=== PATIENT | female | born 1980 | race African-American/Black ===

== ENCOUNTER 2020-08-10 13:40 | Outpatient (CLI) | payer BC, SELFPAY | END 2020-08-10 13:41 | disposition home or self-care (01) | PROVIDERS: Visit Provider Obstetrics & Gynecology | DX: Z01.812 Encounter for preprocedural laboratory examination (principal); D21.9 Benign neoplasm of connective and other soft tissue, unspecified | CPT/HCPCS: 36415; 86850; 86900; 86901 ==

== ENCOUNTER → 2020-08-11 01:05 | Outpatient (CLI) | payer BC, SELFPAY ==
[2020-08-11 19:48] LABS: SARS-CoV-2 RNA PCR Negative
== END ==
PROVIDERS: Visit Provider Obstetrics & Gynecology
DX: Z01.812 Encounter for preprocedural laboratory examination (principal); Z20.822 Contact with and (suspected) exposure to COVID-19
CPT/HCPCS: C9803; U0003; U0005

== ENCOUNTER 2020-08-13 13:55 | Outpatient (CLI) | payer BC, SELFPAY | END 2020-08-13 13:56 | disposition home or self-care (01) | LOC: ANHCOVIDVC 13:55 | DX: Z23 Encounter for immunization (principal) | CPT/HCPCS: 0001A; 91300 ==

== ENCOUNTER 2020-08-14 00:39 | Day surgery (SDC) | payer BC, SELFPAY ==
[2020-08-07 14:25] VITALS: BMI 39.4
[2020-08-14] VITALS (10 sets, daily range): BP systolic 98–128; BP diastolic 62–87; PULSE 60–102; RESP 14–20; TEMP 36.3–37.3; O2SAT 95–100
--- NOTE | 2020-08-14 07:19 | WPDHPUPDATE1 ---
History and Physical Update Update Date/Time: 08/14/20 07:19 History and Physical has been reviewed, including an updated exam of the patient. There are NO changes in the patient's condition. Risks, benefits, and alternatives have been discussed and questions answered. Patient agrees to proceed with procedure.
[2020-08-14] MEDS: ACETAMINOPHEN 500 MG TABLET 1000 MG PO (07:20)
[2020-08-14] MEDS: LACTATED RINGERS 1,000 ML 30 ML IV CONT ×2 (07:35→10:15)
[2020-08-14] MEDS: KETOROLAC 15 MG/ML VIAL (*BKC) IV PUSH (07:42)
--- NOTE | 2020-08-14 08:05 | P.PNAN_ITS ---
Anes - Initial Pre Proc Eval Procedure: Operation Date: 08/14/20 08:30 Proposed Procedures p Total Laparoscopic Hysterectomy with Bilateral Salpingectomy - Antonio Olivia MD Date/Time: 08/14/20 08:05 Surgeon: Antonio Olivia MD Pre Op Diagnosis: leiomyoma of uterus Patient Data Age: 40 Gender: F Height: 5 ft 1 in Weight: 88.6 kg Last Vital Signs Temp 97.7 F 08/14/20 08:02 Pulse 75 08/14/20 08:02 Resp 20 08/14/20 08:02 BP 123/87 08/14/20 08:02 Pulse Ox 99 08/14/20 08:02 Allergies Allergy/AdvReac Type Severity Reaction Status Date / Time No Known Allergies Allergy Verified 08/14/20 08:00 Home Medications Medication Instructions Recorded Confirmed Type ascorbic acid (vitamin C) [Vitamin 300 mg PO DAILY 08/07/20 08/07/20 History C] cholecalciferol (vitamin D3) 10 mcg PO DAILY 08/07/20 08/07/20 History [Vitamin D3] elderberry fruit [Elderberry] 200 mg PO DAILY 08/07/20 08/07/20 History Patient hx anesthesia problems: none Family hx anesthesia problems: none [facility] Past Medical History Medical History (Updated 08/14/20 @ 08:05 by Michele Tate MD) Morbid obesity Social History Social History Smoking status: Light tobacco smoker Tobacco type: cigarettes Additional smoking assessment comments: 3 cigarettes a day x 2 years Alcohol use details: socially Living arrangements: with family Spiritual care concerns: No Anes - Eval Final PreProcedure Day of Procedure 08/14/20 08:05 Patient weight: morbidly obese Heart: regular rate and rhythm Lungs: clear to auscultation Airway: Mallampati scale class III Neurological: alert and oriented Last oral intake: >/= 8 hours ASA classification: III Emergent: no Anesthetic plan: proceed Anesthesia type and monitoring: general ETT and standard monitoring Informed Consent: The patient's anesthetic plan and its attendant risks and benefits were discussed with the patient/family/POA. Questions were solicited and answers provided to the satisfaction of the patient/family/POA.
[2020-08-14] MEDS: ceFAZolin 2 GM/D5W 50 ML 2 GM/50 ML BAG IVPB (08:26)
--- NOTE | 2020-08-14 10:36 | PM.PROC ---
Procedure Note - Detailed Date of procedure: 08/14/20 Pre-op diagnosis: leiomyoma of uterus Myoma, menorrhagia Post-op diagnosis: same Procedure performed: Total laparoscopic hysterectomy. Description of procedure: The patient was taken to the operating room. She was prepped and draped in the dorsal lithotomy position. A speculum was placed in the vagina. The cervix was grasped with a tenaculum. Stay sutures were placed at 3 and 9:00 a.m. of 0 Vicryl. The stay sutures were brought through the Blane up. The ASTER manipulator was placed in the vagina with a fixed Blane cup. The cup was then pushed up around the cervix. The sutures were tied to the handle of the ASTER manipulator. A 5 mm incision was made on the abdominal skin of the left upper quadrant using a scalpel. A 5 mm trocar was inserted into the intra-abdominal cavity under direct visualization the scope. Pneumoperitoneum was achieved. An 11 mm incision was made in the left lower quadrant of the abdomen with a scalpel. A 11 mm trocar was inserted into the intra-abdominal cavity under direct visualization the scope. A 5 mm periumbilical incision was made. A 5 mm scope was placed into the intra-abdominal cavity under direct visualization of the scope. The bilateral fallopian tubes were removed. The paratubal tissue in the area of the uterus was grasped with the LigaSure cautery and transected after being cauterized. The paratubal tissue from the ovary to the uterine cornu was cauterized and transected with LigaSure cautery. This was all done in a bilateral fashion. The tube was transected at the area of the uterine cornua and the tubes was removed through the 11 mm trocar site. The suspensory ligament of the ovary was cauterized and transected with ligature cautery in a bilateral fashion. The fallopian tubes were cauterized and transected in a bilateral fashion with LigaSure cautery. The round ligaments were cauterized and transected in bilateral fashion with LigaSure cautery. The round ligaments were cauterized and transected bilaterally with LigaSure cautery. The broad ligaments were cauterized and transected along the lateral aspects of the uterus down the level of the uterine arteries. A bladder flap was created using sharp and blunt dissection. The ureters were dissected out bilaterally down to the level of the uterine arteries. They could be visualized from the pelvic brim down the uterine arteries. Staying very close to the cervix the parametrium was cauterized transected in a stepwise fashion down to the level of the Blane cup. The Bladder flap was moved distally over the Blane cup using sharp and blunt dissection. The impression of the entire cup was visualized around the cervix. An incision was made with unipolar cautery down under the Blane cup creating a colpotomy incision all the way around the cervix. The uterus was taken out through the vagina. A pneumo occluder was placed in the vagina. The vagina was closed with 0 V lock suture in a running fashion. The ureters were identified again and found to be intact to the level of the uterine arteries. The pelvis was irrigated with a copious amount of antibiotic irrigation. The pneumoperitoneum was reduced. The trocars were removed. The skin was closed subcuticular 4 Monocryl covered with Dermabond. The pneumo occluder was removed from the vagina. The vagina was irrigated with Betadine. The patient tolerated the procedure well. She was taken to the recovery room in stable condition. Sponge lap and needle counts were correct x2. Anesthesia: GETA Surgeon: Antonio Olivia MD Estimated blood loss (mL): 200 Drains: No Packing: No Pathology: yes Complications: No immediate complications Condition: stable Disposition: PACU Findings: Grossly normal appearing tubes and ovaries. Uterus - 12 3 large uterine fibroids
[2020-08-14] MEDS: fentaNYL CITRATE INJ (*CRX) 100 MCG/2 ML VIAL 25 MCG IV PUSH ×4 (10:43→10:58)
--- NOTE | 2020-08-14 11:22 | PC.NURSE ---
This patient, Marvin Disla, was received from PACU per bed to room 279. Patient/family oriented to unit policies and routines
[2020-08-14] MEDS: DEXTROSE 5%/0.45% SOD CHL 1,000 ML 125 ML IV CONT ×2 (11:35→19:18)
[2020-08-14] MEDS: KETOROLAC 30 MG/ML VIAL (*BKC) IV PUSH (15:31)
[2020-08-14] MEDS: IBUPROFEN 600 MG TABLET PO (19:12)
[2020-08-14] MEDS: HYDROcodone/acetaminophen (*CRX) 5-325 MG TABLET 1 TAB PO (19:12)
[2020-08-15 03:41] VITALS: BP 111/65; PULSE 98; RESP 18; TEMP 36.7; O2SAT 100
--- NOTE | 2020-08-15 07:29 | WPDANLDPN2 ---
Anes-Prog Note L&D Date/Time: 08/15/20 07:29 Comfortable throughout: labor and delivery Neuraxial method: epidural Epidural/Spinal procedure site: clean & non-tender Neuro status: Neuro function grossly intact. Cardiovascular status: normal Respiratory status: normal Airway patency: baseline Mental status: baseline Post-Op hydration status: normal Vital Signs: Last Vital Signs Temp 36.7 C 08/15/20 03:41 Pulse 98 08/15/20 03:41 Resp 18 08/15/20 03:41 BP 111/65 08/15/20 03:41 Pulse Ox 100 08/15/20 03:41 Pain score (VAS): 06/17 I/O: Intake & Output 08/14/20 08/14/20 08/15/20 15:59 23:59 07:59 Intake Total 125 1100 500 Output Total 35 125 2000 Balance 90 975 -1500 Post-procedural complaints: none Patient feedback: Patient satisfied with anesthetic care.
--- NOTE | 2020-08-15 07:31 | WPDANESPN ---
Anes - Prog Note Post-Op Date/Time: 08/15/20 07:31 Cardiovascular status: normal Respiratory status: normal Airway patency: baseline Mental status: baseline Post-Op hydration status: normal Vital Signs: Last Vital Signs Temp 36.7 C 08/15/20 03:41 Pulse 98 08/15/20 03:41 Resp 18 08/15/20 03:41 BP 111/65 08/15/20 03:41 Pulse Ox 100 08/15/20 03:41 Pain Score (VAS): 06/17 I/O: Intake & Output 08/14/20 08/14/20 08/15/20 15:59 23:59 07:59 Intake Total 125 1100 500 Output Total 35 125 2000 Balance 90 975 -1500 Post-procedural complaints: none Patient Feedback: Patient satisfied with anesthetic care.
--- NOTE | 2020-08-15 07:46 | PM.GYNPNOP ---
HELP DESK REPRESENTATIVE - A/P Postoperative Procedures: Procedures Operation Date: 08/14/20 08:30 Actual Procedures Side Surgeon p Total Laparoscopic Hysterectomy with Bilateral Salpingectomy Bilateral ROsmany Olivia MD Postoperative day: 1 Postoperative status: doing well and other (Tollerating Regular Diet) Postoperative plan: routine post-op care and discharge Time Spent With Patient Time: Total time spent is greater than 50% in coordination of care (as documented) at patient's floor/unit and/or counseling patient: Time with patient: 15 - 25 minutes HELP DESK REPRESENTATIVE- PN:Subj Post-Op Subjective Date/time seen: 08/15/20 07:46 Subjective: patient reports feeling better, pain is well controlled and patient is tolerating oral intake Exam Const: General: cooperative, healthy appearing, comfortable and no acute distress Resp: Auscultation: no crackles, no rales, no rhonchi and no wheezes Cardio: Rhythm: regular rhythm Heart sounds: no click and no murmurs GI: Inspection: non-distended Auscultation: normal bowel sounds Other: Incisions - CDI Extrem: General: normal to inspection, no pedal edema and no calf tenderness HELP DESK REPRESENTATIVE - PN: Obj Data Vital Signs Vital Signs: Vital Signs - 24 hr 08/14/20 08:02 08/14/20 10:15 08/14/20 10:30 Temperature 97.7 F 99.2 F Pulse Rate 75 63 68 Respiratory Rate 20 20 16 Blood Pressure 123/87 104/66 98/69 L Pulse Oximetry 99 100 100 08/14/20 10:35 08/14/20 10:45 08/14/20 11:00 Temperature Pulse Rate 60 69 Respiratory Rate 16 14 Blood Pressure 101/71 101/67 Pulse Oximetry 98 100 100 08/14/20 11:15 08/14/20 11:30 08/14/20 16:10 Temperature 97.4 F L 99.0 F Pulse Rate 69 64 91 Respiratory Rate 14 18 18 Blood Pressure 101/62 104/64 128/69 Pulse Oximetry 100 95 08/14/20 19:24 08/15/20 03:41 Temperature 98.1 F 98.0 F Pulse Rate 102 H 98 Respiratory Rate 16 18 Blood Pressure 126/75 111/65 Pulse Oximetry 100 100 Intake/Output Intake/Output: Intake & Output 08/12/20 08/13/20 08/14/20 08/15/20 23:59 23:59 23:59 23:59 Intake Total 1225 500 Output Total 160 2000 Balance 1065 -1500 Meds/Results Medications: Active Medications Generic Name Dose Route Start Last Admin Trade Name Freq PRN Reason Stop Dose Admin Hydrocodone Bitart/Acetaminophen 1 tab 08/14/20 11:16 08/14/20 19:12 Hydrocodone/Acetaminophen (*Crx) 5-325 Mg Tablet PO 1 tab Q3H PRN Administration Pain Rated 5 or Less Hydrocodone Bitart/Acetaminophen 1 tab 08/14/20 11:16 Hydrocodone/Acetaminophen (*Crx) 10-325 Mg Tablet PO Q3H PRN Pain Rated 6 or Greater Dextrose/Sodium Chloride 1,000 mls @ 125 mls/hr 08/14/20 11:16 08/15/20 03:44 Dextrose 5% Sodium Chloride 0.45% IV CONT Not Given .Q8H DAI Ibuprofen 600 mg 08/14/20 11:16 08/14/20 19:12 Ibuprofen 600 Mg Tablet PO 600 mg Q6H PRN Administration Cramping Ketorolac Tromethamine 30 mg 08/14/20 11:16 08/14/20 15:31 Ketorolac 30 Mg/Ml Vial (*Bkc) IV PUSH 08/19/20 11:17 30 mg Q6H PRN Administration Pain Rated 4-6 Naloxone HCl 0.1 mg 08/14/20 11:16 Naloxone Hcl 0.4 Mg/Ml Vial IV PUSH Q2M PRN Respiratory rate less than 10 Ondansetron HCl 4 mg 08/14/20 11:16 Ondansetron Inj 4 Mg/2 Ml Vial IV PUSH Q6H PRN Nausea And Vomiting
[2020-08-15] MEDS: IBUPROFEN 600 MG TABLET PO (08:37)
[2020-08-15] MEDS: HYDROcodone/acetaminophen (*CRX) 5-325 MG TABLET 1 TAB PO (08:38)
[2020-08-15 08:50] VITALS: BP 121/68; PULSE 78; RESP 18; TEMP 36.9; O2SAT 98
== END 2020-08-15 12:05 | disposition home or self-care (01) ==
LOC: ANHSURGERY 06:43 → ANHOB2 12:11
PROVIDERS: Visit Provider Obstetrics & Gynecology
PROC: 0UT9FZZ Resection of Uterus, Via Natural or Artificial Opening With Percutaneous Endoscopic Assistance (ICD-10-PCS; CPT 58571; principal; 2020-08-14 08:30)
DX: D25.0 Submucous leiomyoma of uterus (principal); D25.1 Intramural leiomyoma of uterus; D25.2 Subserosal leiomyoma of uterus; N92.0 Excessive and frequent menstruation with regular cycle; N80.0 Endometriosis of uterus; N73.6 Female pelvic peritoneal adhesions (postinfective); N94.5 Secondary dysmenorrhea; F17.210 Nicotine dependence, cigarettes, uncomplicated; E66.01 Morbid (severe) obesity due to excess calories; Z68.36 Body mass index [BMI] 36.0-36.9, adult
CPT/HCPCS: 58571; 88307; 99199; A9270; J0330; J0690; J1100; J1170; J1885; J2250; J2405; J2704; J2710; J3010; J7030; J7120

== ENCOUNTER 2020-09-03 14:31 | Outpatient (CLI) | payer BC, SELFPAY | END 2020-09-03 14:32 | disposition home or self-care (01) | LOC: ANHCOVIDVC 14:31 | DX: Z23 Encounter for immunization (principal) | CPT/HCPCS: 0002A; 91300 ==

== ENCOUNTER 2020-11-06 19:24 | Emergency (ER) | payer BC, SELFPAY ==
--- NOTE | ~2020-11-06 | XR_ITS ---
XR knee RT 3V DATE: 11/06/2020 22:48 INDICATION: Nontraumatic pain TECHNIQUE: 4 views COMPARISON: None FINDINGS: No fracture or dislocation or joint effusion, periosteal reaction or bone destruction, radi opaque intra-articular loose body or chondrocalcinosis is evident. Joint spaces are well preserved. IMPRESSION: Negative Reviewed, dictated and finalized at location A. IMPRESSION: Negative
[2020-11-06 19:56] VITALS: BP 131/70; PULSE 71; RESP 18; TEMP 36.4; O2SAT 100
--- NOTE | 2020-11-06 22:31 | ED.EXTPRO ---
HPI - Extremity Problem General Chief complaint: Extremity Problem,Nontraumatic Stated complaint: right leg swelling Time Seen by Provider: 11/06/20 22:08 Source: patient Mode of arrival: ambulatory Limitations: no limitations History of Present Illness HPI Narrative: Patient is 40 years old -[place] female presents with pain and bruises at the anterior lateral side of the right lower leg, noticed last night. Patient denies any trauma, shortness of breath, fever, chills, nausea, vomiting, chest pain. Patient reports having some right knee pain. 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 Patient smokes, does not drink or uses drugs. History of hysterectomy otherwise healthy. Related Data Home Medications Medication Instructions Recorded Confirmed ascorbic acid (vitamin C) 300 mg PO DAILY 08/07/20 08/07/20 cholecalciferol (vitamin D3) 10 mcg PO DAILY 08/07/20 08/07/20 [Vitamin D3] elderberry fruit 200 mg PO DAILY 08/07/20 08/07/20 Allergies Allergy/AdvReac Type Severity Reaction Status Date / Time No Known Allergies Allergy Verified 11/01/20 07:53 Review of Systems Review of Systems: Narrative: CONSTITUTIONAL: Denies fever, chills, or sweats. EYES: Denies visual changes, redness, or discharge. ENT: Denies rhinorrhea, congestion, sore throat, or otalgia. CARDIOVASCULAR: Denies chest pain, palpitations, or edema. RESPIRATORY: Denies cough or dyspnea. GASTROINTESTINAL: Denies abdominal pain, nausea, vomiting, or diarrhea. GENITOURINARY: Denies dysuria or hematuria. SKIN: Denies rash or itching. MUSCULOSKELETAL: Denies back pain, joint pain, or myalgia. NEUROLOGIC: Denies headache, numbness, or weakness. PSYCHIATRIC: Denies anxiety or depression. PMFSH Past Medical History Medical History Morbid obesity Social History Social History Smoking status: Light tobacco smoker Tobacco type: cigarettes Additional smoking assessment comments: 3 cigarettes a day x 2 years Spiritual care concerns: No Exam Narrative: Exam Narrative: General appearance: Well-developed, well-nourished Skin: Normal color Head: Normocephalic, nontraumatic Eyes: Clear conjunctiva ENT: Oropharynx normal, ears normal, nose normal Neck: Supple, nontender Chest and respiratory: Airway patent, no respiratory distress, no accessory muscle use Heart: Regular rate/rhythm Abdomen: Soft, nontender, no organomegaly, quiet bowel sounds Vascular: Normal peripheral pulses, normal capillary refill. Musculoskeletal: Right lower leg showed diffuse bruises anterolaterally, 10 x 15 cm, tender to touch, no warmth, no discharge, no open the skin, there might be surrounded by tiny varicose veins. Right knee exam showed no swelling, no bruises, no warmth, no deformity. Right calf muscle is soft and nontender. Neurologic: Alert and oriented ?3, NURSING DEPARTMENT CHAIRPERSON is normal as tested, no gross motor deficit Course Course Emergency Course: Stable Vital Signs Vital signs: Vital Signs Temperature 36.4 C L 11/06/20 19:56 Pulse Rate 71 11/06/20 19:56 Respiratory Rate 18 11/06/20 19:56 Blood Pressure 131/70 11/06/20 19:56 Pulse Oximetry 100 11/06/20 19:56 Temperature 36.4 C L 11/06/20 19:56 Pulse Rate 71 11/06/20 19:56 Respiratory Rate 18 11/06/20 19:56 Blood Pressure 131/70 11/06/20 19:56 Pulse Oximetry 100 11/06/20 19:56 MDM - Extremity (Nontraumatic) MDM Narrative Medical decision making narrative: And noticed trauma versus rupture varicose vein is my concern. Right knee x-ray, CBC, PT PTT to rule out any possibilit
[2020-11-06 23:01] LABS: Basophils Percent Auto 0.4 % (0.2-1.2); Eosinophils Absolute Auto 0.1 K/mm3 (0-0.3); Eosinophils Percent Auto 1.5 % (0-4.4); Hematocrit 41.4 % (37.0-47.0); Hemoglobin 13.6 g/dL (12.0-15.0); Immature Granulocyte Absolute 0.01 K/mm3 (0.00-0.031); Immature Granulocyte Percent A 0.2 % (0-0.5); Lymphocytes Absolute Auto 2.58 K/mm3 (0.9-3.2); Lymphocytes Percent Auto 47.8 % (18.3-44.2); Mean Corpuscular HGB Conc 32.9 g/dl (32-36); Mean Corpuscular Hemoglobin 30.2 pg (26-34); Mean Corpuscular Volume 91.8 fl (80-100); Mean Platelet Volume 10.9 fl (7.4-10.4); Monocytes Absolute Auto 0.3 K/mm3 (0.1-0.6); Monocytes Percent Auto 5.7 % (2.6-8.5); Neutrophils Absolute Auto 2.4 K/mm3 (1.3-6.7); Neutrophils Percent Auto 44.4 % (45.5-73.1); Platelet Count Result 192 k/mm3 (150-375); Red Blood Count 4.51 M/mm3 (4.2-5.4); Red Cell Distribution Width 13.2 % (11.5-14.5); White Blood Count 5.4 K/mm3 (4.5-10.0)
[2020-11-06 23:13] LABS: INR 0.9; Prothrombin Time 13.1 Seconds (11.1-14.7)
[2020-11-06 23:14] LABS: Partial Thromboplastin Time 30.9 SECONDS (22.3-36.8)
[2020-11-06 23:29] VITALS: BP 126/71; PULSE 68; RESP 18; O2SAT 99
[2020-11-07 00:11] LABS: Erythrocyte Sedimentation Rate 13 mm/hr (0-20)
== END 2020-11-06 23:27 | disposition home or self-care (01) ==
PROVIDERS: Emergency Provider Emergency Medicine; PCP Family Medicine
DX: R58 Hemorrhage, not elsewhere classified (principal); F17.210 Nicotine dependence, cigarettes, uncomplicated
CPT/HCPCS: 36415; 73562; 85025; 85610; 85652; 85730; 99283

== ENCOUNTER 2021-07-31 12:09 | Outpatient (CLI) | payer BC, SELFPAY ==
--- NOTE | 2021-07-31 12:30 | ECG_ITS ---
Measurements Intervals [place] Rate: 68 P: 51 MO: 171 QRS: 18 QRSD: 87 T: 56 QT: 412 QTc: 440 Interpretive Statements SINUS RHYTHM INCOMPLETE RIGHT BUNDLE BRANCH BLOCK BORDERLINE ECG Electronically Signed On 07-31-2021 14:00:14 [employer] GENER[employer]NAGER by Roshan West D.O.
== END 2021-07-31 12:10 | disposition home or self-care (01) ==
LOC: ANHCARD 12:21
DX: E66.9 Obesity, unspecified (principal); I45.10 Unspecified right bundle-branch block
CPT/HCPCS: 93005

== ENCOUNTER 2022-01-06 02:03 | Emergency (ER) | payer BC, SELFPAY ==
[2022-01-06 02:08] VITALS: BP 140/94; PULSE 100; RESP 20; TEMP 36.6; O2SAT 100
--- NOTE | 2022-01-06 02:20 | ED.EXTPRO ---
HPI - Extremity Problem General Chief complaint: Extremity Problem,Nontraumatic Stated complaint: Left calf pain Time Seen by Provider: 01/06/22 02:16 History of Present Illness HPI Narrative: Patient is a 41-year-old female complaining of left calf pain, 8 out of 10, aching, nonradiating started 2 days ago. Patient denies any chest pain, shortness of breath, fever or chills. Patient denies any injury to the area. Patient denies any recent travel or prolonged immobilization. Denies any history of blood clots. Related Data Home Medications Medication Instructions Recorded Confirmed ascorbic acid (vitamin C) 300 mg 300 mg PO DAILY 08/07/20 08/07/20 chewable tablet cholecalciferol (vitamin D3) 10 10 mcg PO DAILY 08/07/20 08/07/20 mcg (400 unit) chewable tablet (Vitamin D3) elderberry fruit 200 mg capsule 200 mg PO DAILY 08/07/20 08/07/20 phentermine 30 mg capsule mg 01/06/22 topiramate 100 mg tablet mg 01/06/22 Allergies Allergy/AdvReac Type Severity Reaction Status Date / Time No Known Allergies Allergy Verified 01/06/22 02:11 Review of Systems Review of Systems: Per HPI All systems reviewed & are unremarkable except as noted in HPI and below PMFSH Past Medical History Medical History Morbid obesity Social History Social History Smoking status: Light tobacco smoker Tobacco type: cigarettes Additional smoking assessment comments: 3 cigarettes a day x 2 years Alcohol use details: socially Spiritual care concerns: No Exam Const: General: cooperative, healthy appearing, comfortable, no acute distress, well developed, alert and awake; No confusion Orientation/consciousness: oriented to person, oriented to place, oriented to time, patient oriented x3 and No confusion Limitations: no limitations HENMT: Head: normal to inspection, normocephalic and atraumatic Ears: hearing grossly normal bilaterally, TM normal on the right and TM normal on the left General nose exam: Normal external nose present, Normal nares present and No nasal discharge present Face and sinus: normal facial exam Mouth: Yes Normal oral and palatal mucosa present, Yes lip normal, Yes tongue normal and Yes oropharynx normal Throat: posterior oropharynx normal, tonsils normal and uvula midline Eyes: General: appearance normal, both eyes and all related structures Pupils: Equal, round and reactive pupils present EOM: EOMs intact bilaterally Neck: Neck: normal visual inspection, full ROM, no lymphadenopathy and no meningeal signs Chest: Chest palpation & inspection: normal inspection of the chest Resp: Effort & Inspection: normal respiratory effort, able to speak in complete sentences, no respiratory distress and not tachypneic Auscultation: clear to auscultation bilaterally, no crackles, no rales, no rhonchi and no wheezes Cardio: Rate: regular rate Rhythm: regular rhythm GI: Inspection: normal to inspection GI Palp: No abdominal tenderness, Yes Soft to palpation, No Tenderness to palpation present (GI), No Guarding due to palpation present (GI), No Rigid due to palpation and No Rebound tenderness present Auscultation: normal bowel sounds : General: Yes no CVA tenderness Back/Spine/Pelvis: Back: no CVA tenderness Skin: General skin exam: normal color, no rashes or lesions noted, elasticity normal and turgor normal Neuro: General: oriented to person, oriented to place, oriented to time, patient oriented x3, tone normal, moves all extremities, Normal light touch and pain sensation, no meningeal signs, no focal motor deficits, CN's II-XI intact bilaterally and No confusion Cranial nerves: Yes Equal, round and reactive pupils present Speech: No Abnormal speech present Sensory Exam: No Sensory deficit (Neuro) Extrem: General: normal to inspection, full ROM and capillary refill normal Other: Calf pain on pal
[2022-01-06] MEDS: CYCLOBENZAPRINE HCL 10 MG TABLET PO (03:01)
[2022-01-06] MEDS: KETOROLAC 30 MG/ML VIAL (*BKC) IM (03:01)
[2022-01-06 03:44] VITALS: BP 134/90; PULSE 97; RESP 15; O2SAT 100
== END 2022-01-06 03:46 | disposition home or self-care (01) ==
PROVIDERS: Emergency Provider Emergency Medicine
DX: M79.662 Pain in left lower leg (principal); E66.01 Morbid (severe) obesity due to excess calories; Z68.36 Body mass index [BMI] 36.0-36.9, adult; F17.210 Nicotine dependence, cigarettes, uncomplicated
CPT/HCPCS: 96372; 99283; A9270; J1885

== ENCOUNTER 2022-01-06 14:14 | Outpatient (CLI) | payer BC, SELFPAY ==
--- NOTE | ~2022-01-06 | US_ITS ---
EXAMINATION: US venous doppler [facility] DATE: 01/06/2022 15:17 INDICATION: L LEG PAIN . TECHNIQUE: Grayscale images without and with compression and Doppler images of the left lower extremi ty veins were obtained. COMPARISON: None FINDINGS: The left common femoral vein, profunda femoral vein, femoral vein, popliteal vein, peroneal vein, pos terior branches of the posterior tibial veins, gastrocnemius vein, lesser saphenous, and greater saph enous vein are patent. Anterior branch of the posterior tibial vein is dilated, contains intraluminal echogenicity, and is noncompressible IMPRESSION: 1. Acute deep venous thrombosis involving the anterior branch of left the posterior tibial vein. Results reported telephonically to Dr. He by Dr. Cedillo at 3:35 pm on 01/06/22. Reviewed, dictated and finalized at location K. IMPRESSION: 1. Acute deep venous thrombosis involving the anterior branch of left the post erior tibial vein. Results reported telephonically to Dr. He by Dr. Cedillo at 3:35 pm on 01/06/22 .
== END 2022-01-06 14:15 | disposition home or self-care (01) ==
PROVIDERS: PCP Emergency Medicine; Visit Provider Emergency Medicine
DX: M79.605 Pain in left leg (principal); I82.442 Acute embolism and thrombosis of left tibial vein
CPT/HCPCS: 93971

== ENCOUNTER 2022-01-06 15:55 | Emergency (ER) | payer BC, SELFPAY ==
[2022-01-06 16:22] VITALS: BP 141/103; PULSE 112; RESP 16; TEMP 36.3; O2SAT 97
[2022-01-07 00:34] VITALS: BP 148/105; PULSE 85; RESP 18; O2SAT 100
[2022-01-07 00:47] LABS: Basophils Percent Auto 0.4 % (0.2-1.2); Eosinophils Absolute Auto 0.1 K/mm3 (0-0.3); Eosinophils Percent Auto 1.6 % (0-4.4); Hematocrit 41.6 % (37.0-47.0); Hemoglobin 13.8 g/dL (12.0-15.0); Immature Granulocyte Absolute 0.01 K/mm3 (0.00-0.031); Immature Granulocyte Percent A 0.2 % (0-0.5); Lymphocytes Absolute Auto 2.59 K/mm3 (0.9-3.2); Lymphocytes Percent Auto 50.7 % (18.3-44.2); Mean Corpuscular HGB Conc 33.2 g/dl (32-36); Mean Corpuscular Hemoglobin 30.7 pg (26-34); Mean Corpuscular Volume 92.4 fl (80-100); Mean Platelet Volume 11.1 fl (7.4-10.4); Monocytes Absolute Auto 0.4 K/mm3 (0.1-0.6); Monocytes Percent Auto 6.8 % (2.6-8.5); Neutrophils Absolute Auto 2.1 K/mm3 (1.3-6.7); Neutrophils Percent Auto 40.3 % (45.5-73.1); Platelet Count Result 179 k/mm3 (150-375); Red Cell Distribution Width 13.6 % (11.5-14.5); White Blood Count 5.1 K/mm3 (4.5-10.0)
[2022-01-07 00:53] LABS: Alanine Aminotransferase 11 U/L (6-35); Albumin Level 4.2 g/dL (3.5-5.1); Alkaline Phosphatase 80 U/L (38-126); Anion Gap 8 mmol/L (8-16); Aspartate Amino Transferase 20 U/L (14-36); Bilirubin,Total 0.4 mg/dL (0.2-1.3); Blood Urea Nitrogen 14 mg/dL (7-17); Calcium 8.8 mg/dL (8.4-10.2); Carbon Dioxide 29 mmol/L (22-30); Chloride 104 mmol/L (98-107); Estimated CRCL calculation 72 ml/min; Estimated Glomerular Filt Rate > 60; Glucose 94 mg/dL (65-110); Potassium 3.2 mmol/L (3.4-5.0); Sodium 141 mmol/L (137-145)
--- NOTE | 2022-01-07 01:09 | ED.GENADULT ---
HPI - General Adult General Chief complaint: Recheck/Abnormal Lab/Rx <DANA Capps Last Filed: 01/07/22 13:51> Stated complaint: DVT left leg <DANA Capps Last Filed: 01/07/22 13:51> Time Seen by Provider: 01/07/22 00:28 <DANA Capps Last Filed: 01/07/22 13:51> History of Present Illness HPI narrative: Patient is a 41-year-old female here for evaluation of left lower extremity swelling and pain for the past 3 days. Patient was seen in the ED last evening for the same, had an ultrasound in the morning that was positive for DVT on the left. She called her primary care doctor, who recommended her to come to the emergency department. She has never had a blood clot in the past. She has been taking a muscle relaxant and also icing the area with moderate relief of her pain. Denies any chest pain, shortness of breath, syncope. <Romina Rodarte PA-C - Last Filed: 01/07/22 13:51> Related Data Home medications: Home Medications Medication Instructions Recorded Confirmed ascorbic acid (vitamin C) 300 mg 300 mg PO DAILY 08/07/20 08/07/20 chewable tablet cholecalciferol (vitamin D3) 10 10 mcg PO DAILY 08/07/20 08/07/20 mcg (400 unit) chewable tablet (Vitamin D3) elderberry fruit 200 mg capsule 200 mg PO DAILY 08/07/20 08/07/20 phentermine 30 mg capsule mg 01/06/22 topiramate 100 mg tablet mg 01/06/22 <Romina Rodarte PA-C - Last Filed: 01/07/22 13:51> Allergies/adverse reactions: Allergies Allergy/AdvReac Type Severity Reaction Status Date / Time No Known Allergies Allergy Verified 01/07/22 00:37 <DANA Capps Last Filed: 01/07/22 13:51> Review of Systems Review of Systems: Gen.: Denies fevers or chills Eyes: Denies eye pain or visual change ENT: Denies congestion Respiratory: Denies shortness of breath or cough CV: Denies chest pain or palpitations GI: Denies abdominal pain nausea, emesis or diarrhea denies burning, urgency, frequency or hematuria Musculoskeletal: Reports left leg pain. Denies back pain or muscle pain Neuro: Denies numbness, tingling, weakness or focal weakness Skin: Denies rash Except as documented, all other systems reviewed and negative <Romina Rodarte PA-C - Last Filed: 01/07/22 13:51> [facility] Past Medical History Medical History: Medical History Morbid obesity <Romina Rodarte PA-C - Last Filed: 01/07/22 13:51> Social History Social History: Social History Smoking status: Light tobacco smoker Tobacco type: cigarettes Additional smoking assessment comments: 3 cigarettes a day x 2 years Alcohol use details: socially Spiritual care concerns: No <Romina Rodarte PA-C - Last Filed: 01/07/22 13:51> Exam Narrative: APPEARANCE: Well appearing, no pain in distress, well-nourished. Head: Normocephalic and atraumatic. EYES: PERRLA/EOMI, conjunctivae clear NOSE: No nasal drainage EARS: External ear normal in appearance THROAT: Oropharynx is clear. Mucous membranes are moist. NECK: Supple. No adenopathy, no masses. RESPIRATORY: Airway patent, respirations nonlabored. Clear to auscultation bilaterally, no rales, rhonchi, wheezing. CARDIOVASCULAR: Regular rate and rhythm without murmurs, rubs, or gallops. ABDOMINAL: Normoactive bowel sounds. Soft, nontender, nondistended. No rebound tenderness or guarding. MUSCULOSKELETAL: Tender to palpation over left calf. Nonpitting edema over the left calf. Extremities are warm and well-perfused. Moves all extremities well. NEURO: Normal speech. No focal neurologic deficits. SKIN: Skin is warm and dry. No rashes. PSYCHIATRIC: Normal affect/mood. <Romina Rodarte PA-C - Last Filed: 01/07/22 13:51> Course BEHAVIORAL HEALTH AIDE/PA Physician Supervision I discussed this patient w
[2022-01-07] MEDS: ACETAMINOPHEN 325 MG TABLET 650 MG PO (01:17)
[2022-01-07] MEDS: ENOXAPARIN 100 MG/ML SYRINGE SUB-Q (01:18)
[2022-01-07] MEDS: ENOXAPARIN 40 MG/0.4 ML SYRINGE SUB-Q (01:18)
[2022-01-07 02:00] VITALS: BP 151/106; PULSE 76; RESP 19; O2SAT 99
== END 2022-01-07 02:01 | disposition home or self-care (01) ==
PROVIDERS: Emergency Medicine; Physician Assistant; Emergency Provider Preventive Medicine Aerospace Medicine; PCP Emergency Medicine
DX: I82.442 Acute embolism and thrombosis of left tibial vein (principal); E66.01 Morbid (severe) obesity due to excess calories; Z68.36 Body mass index [BMI] 36.0-36.9, adult
CPT/HCPCS: 36415; 80053; 85025; 85730; 96372; 99284; A9270; J1650

== ENCOUNTER 2022-01-10 15:57 | Outpatient (CLI) | payer BC, SELFPAY ==
[2022-01-10 16:58] LABS: Anion Gap 6 mmol/L (8-16); Blood Urea Nitrogen 11 mg/dL (7-17); Carbon Dioxide 27 mmol/L (22-30); Chloride 105 mmol/L (98-107); Estimated Glomerular Filt Rate > 60; Glucose 93 mg/dL (65-110); Potassium 3.7 mmol/L (3.4-5.0); Sodium 138 mmol/L (137-145)
[2022-01-10 17:03] LABS: Hemoglobin A1C 5.1 % (<5.7)
[2022-01-10 17:24] LABS: Free T4 Free Thyroxine 0.89 ng/mL (0.78-2.19)
[2022-01-10 17:29] LABS: Creatinine Urine 284.5 mg/dL
[2022-01-10 17:35] LABS: MALB Creatinine Ratio 7.2 mg/g (0-30); Microalbumin Urine Random 20.6 mg/L (0-16.7)
== END 2022-01-10 15:58 | disposition home or self-care (01) ==
PROVIDERS: PCP Emergency Medicine; Visit Provider Emergency Medicine
DX: I82.409 Acute embolism and thrombosis of unspecified deep veins of unspecified lower extremity (principal)
CPT/HCPCS: 36415; 80048; 82043; 83036; 84439; 84443; 87086

== ENCOUNTER 2022-03-11 15:23 | Outpatient (CLI) | payer BC, SELFPAY ==
--- NOTE | ~2022-03-11 | US_ITS ---
EXAMINATION:US venous doppler LE LT INDICATION:Left DVT TECHNIQUE: Multiple grayscale, color flow and Doppler images of the left lower extremity deep venous systems were obtained and reviewed. COMPARISON:Ultrasound dated 01/06/2022 FINDINGS: The common femoral, superficial femoral and popliteal veins demonstrate normal respiratory variation, augmentation and compressibility. Color flow is also seen within the posterior tibial, pe roneal, greater saphenous and profunda veins. IMPRESSION: 1: No lower extremity deep venous thrombosis. Reviewed, dictated and finalized at location A.
== END 2022-03-11 15:24 | disposition home or self-care (01) ==
PROVIDERS: PCP Emergency Medicine; Visit Provider Internal Medicine Hematology & Oncology
DX: I82.4Y2 Acute embolism and thrombosis of unspecified deep veins of left proximal lower extremity (principal)
CPT/HCPCS: 93971

== ENCOUNTER 2022-03-18 16:40 | Outpatient (CLI) | payer BC, SELFPAY ==
--- NOTE | ~2022-03-18 | MM_ITS ---
EXAMINATION: MM screening jc BI w delfin HISTORY: Screening TECHNIQUE: Craniocaudal and mediolateral oblique 3-D tomosynthesis images were obtained and synthetic 2-D images were generated. CAD analysis was submitted and interpreted. COMPARISON: No prior mammogram is available for comparison at this institution. BREAST PARENCHYMAL COMPOSITION: The breasts are heterogeneously dense, which may obscure small masses FINDINGS: There are no suspicious masses, calcifications or architectural distortion in the left boogie st to suggest malignancy. There is a 1.6 cm mass in the upper outer quadrant of the right breast with possible additional mass obscured by fibroglandular tissue. IMPRESSION: 1. Right breast mass in the upper outer quadrant posteriorly measuring 1.6 cm. 2. Additional mammographic views and possible breast ultrasound are recommended. BI-RADS Category 0: Incomplete: Needs additional imaging evaluation. Reviewed, dictated and finalized at location A. IMPRESSION: 1. Right breast mass in the upper outer quadrant posteriorly measuring 1.6 cm. 2. Additional mammographic views and possible breast ultrasound are recommended . BI-RADS Category 0: Incomplete: Needs additional imaging evaluation.
== END 2022-03-18 16:41 | disposition home or self-care (01) ==
LOC: ANHIMG 16:43
PROVIDERS: PCP Emergency Medicine; Visit Provider Emergency Medicine
DX: Z12.31 Encounter for screening mammogram for malignant neoplasm of breast (principal); R92.8 Other abnormal and inconclusive findings on diagnostic imaging of breast
CPT/HCPCS: 77063; 77067

== ENCOUNTER 2022-03-27 13:16 | Outpatient (CLI) | payer BC, SELFPAY ==
--- NOTE | ~2022-03-27 | MMUS_ITS ---
EXAMINATION: MM diagnostic jc RT w delfin, US breast RT limited HISTORY: Follow-up right breast asymmetry TECHNIQUE: Additional 3-D tomosynthesis images of the right breast were performed and synthetic 2-D i mages were generated. CAD analysis was submitted and interpreted. High resolution Limited right breas t ultrasound was performed. COMPARISON: 03/18/2022 BREAST PARENCHYMAL COMPOSITION: The breasts are heterogeneously dense, which may obscure small masses FINDINGS: MAMMOGRAPHIC FINDINGS: There are persistent asymmetries in the upper outer quadrant of the right breast. There is a low-dens ity mass in the upper outer quadrant of the right breast, middle third, measuring up to 1.3 cm. There is no evidence for architectural distortion. ULTRASOUND: Limited right breast ultrasound: At 11:00, 7 cm from the nipple, there is an 8 mm cyst. At 11:00, 9 c m from the nipple, there is a 6 mm cyst. At 9:00, 8 cm from the nipple, there is an oval hypoechoic m ass with some irregular margins. There is parallel orientation, posterior acoustic enhancement and no internal vascularity. This mass measures 1.2 x 1 x 0.9 cm. IMPRESSION: 1. Slightly irregular shaped hypoechoic right breast mass located at 9:00, 8 cm from the nipple measu ring 12 mm greatest dimension. 2. Recommend fine-needle aspiration of this mass. If aspiration is not possible, conversion to ultras ound-guided biopsy recommended. BI-RADS category 4, suspicious findings. Reviewed, dictated and finalized at location A. IMPRESSION: 1. Slightly irregular shaped hypoechoic right breast mass located at 9:00, 8 cm from the nipple measuring 12 mm greatest dimension. 2. Recommend fine-needle aspiration of this mass. If aspiration is not possible , conversion to ultrasound-guided biopsy recommended. BI-RADS category 4, suspicious findings.
== END 2022-03-27 13:17 | disposition home or self-care (01) ==
LOC: ANHIMG 13:18
PROVIDERS: PCP Emergency Medicine; Visit Provider Emergency Medicine
DX: R92.8 Other abnormal and inconclusive findings on diagnostic imaging of breast (principal)
CPT/HCPCS: 76642; 77061; 77065; G0279

== ENCOUNTER 2022-04-03 10:09 | Outpatient (CLI) | payer BC, SELFPAY ==
--- NOTE | ~2022-04-03 | MMUS_ITS ---
EXAMINATION: US breast biopsy RT w image, MM post biopsy invasive RT DATE: 04/03/2022 11:40 (accession [id number]), 04/03/2022 11:45 (accession [id number]) INDICATION: Indeterminate mass at the 9:00 location of the right breast Ultrasound-guided core biopsy is requested to evaluate for malignancy. TECHNIQUE AND FINDINGS: The risks and potential benefits of the procedure were discussed with the patient including bleeding and infection. A time out was performed. The skin of the right breast was prepared and draped in usua l sterile fashion. 1% lidocaine was used for superficial anesthesia. 1% lidocaine with epinephrine wa s used for deep anesthesia. A vacuum-assisted biopsy needle was advanced through to the outer edge of the region of interest from a superolateral approach utilizing sonographic guidance. A total of three tissue core samples were o btained through the lesion. A tissue marker clip was then placed at the biopsy site. Hemostasis was a chieved. A sterile bandage was applied. The patient tolerated procedure well and there was no evidence of immediate complication. The patient was given verbal instructions to return to the Emergency Department in the event of severe breast pa in or rapid breast enlargement. A two view right breast mammogram was obtained to document tissue mar ker clip placement. IMPRESSION: 1. Successful ultrasound-guided vacuum-assisted biopsy of right breast mass with tissue marker placem ent. Reviewed, dictated and finalized at location A. IMPRESSION: 1. Successful ultrasound-guided vacuum-assisted biopsy of right breast mass wit h tissue marker placement.
== END 2022-04-03 10:10 | disposition home or self-care (01) ==
PROVIDERS: PCP Emergency Medicine; Visit Provider Emergency Medicine
DX: N64.59 Other signs and symptoms in breast (principal); D05.11 Intraductal carcinoma in situ of right breast
CPT/HCPCS: 19083; 88305; 88360; A4648

== ENCOUNTER 2022-06-03 14:00 | Outpatient (CLI) | payer BC, SELFPAY ==
--- NOTE | 2022-06-03 | ECHO_ITS ---
Patient Info Name: Marvin Disla Age: 42 years : 1980 Gender: Female Ht: 61 in Wt: 196 lbs BSA: 2.00 m2 HR: 88 bpm BP: 144 / 99 mmHg Heart Rhythm: Sinus Rhythm Exam Date: 06/03/2022 2:09 PM Exam Location: [facility] Patient Status: Outpatient Admit Date: 06/03/2022 Staff Ordering Physician: Durga Roberson MD Sample Coordinator: Jessica Payan RDCS Attending Provider: Durga Roberson MD Referring Physician: Karol BAHENA; Exam Type: CA echo doppler color flow Study Info Indications - MALIGNANT NEOPLASM OF UPPER OUTER QUADRANT L BREAST Complete two-dimensional, color flow and Doppler transthoracic echocardiogram is performed. Summary 1. Complete two-dimensional, color flow and Doppler transthoracic echocardiogram is performed. 2. Left ventricular chamber dimension is normal. 3. Left ventricular systolic function is normal, estimated at 65-70%. 4. There is mildly increased left ventricular wall thickness. 5. The left ventricular diastolic function is abnormal. 6. Left atrial chamber dimension is mildly enlarged. 7. There is trace tricuspid valve regurgitation. 8. No pulmonary hypertension, estimated pulmonary arterial systolic pressure is 26 mmHg. Left Ventricle Left ventricular chamber dimension is normal. Left ventricular systolic function is normal, estimated at 65-70%. There is mildly increased left ventricular wall thickness. The left ventricular diastolic function is abnormal. Right Ventricle Right ventricular chamber dimension is normal. Right ventricular systolic function is normal. Left Atria Left atrial chamber dimension is mildly enlarged. Right Atria Right atrial chamber dimension is normal. Aortic Valve The aortic valve is probable trileaflet. There is no aortic valve stenosis. There is no aortic valve regurgitation. Pulmonic Valve The pulmonic valve is not well visualized. There is trace pulmonic regurgitation. Mitral Valve The mitral valve has normal leaflets. There is trace mitral valve regurgitation. Tricuspid Valve The tricuspid valve leaflets are normal. There is trace tricuspid valve regurgitation. No pulmonary hypertension, estimated pulmonary arterial systolic pressure is 26 mmHg. Pericardium/Pleural The pericardium appears normal. There is no pericardial effusion. Inferior Vena Cava Normal inferior vena cava with <50% collapse upon inspiration consistent with elevated right atrial pressure, 10 mmHg. Aorta The aortic root size at the sinus of Valsalva is normal. Left Ventricular Outflow Tract Name Value Normal LVOT 2D LVOT Diameter 2.0 cm LVOT Doppler LVOT Peak Gradient 3 mmHg LVOT Mean Gradient 2 mmHg LVOT VTI 22 cm LVOT VTI/AV VTI Ratio 0.9 LVOT Stroke Volume 67 ml LVOT CO 3.9 l/min LVOT CI 1.9 l/min/m2 Pulmonic Valve Name
== END 2022-06-03 14:01 | disposition home or self-care (01) ==
LOC: ANHCARD 14:01
PROVIDERS: Visit Provider Internal Medicine Hematology & Oncology
DX: C50.412 Malignant neoplasm of upper-outer quadrant of left female breast (principal); I51.7 Cardiomegaly
CPT/HCPCS: 93306

== ENCOUNTER 2022-07-10 12:33 | Outpatient (CLI) | payer BC, SELFPAY ==
--- NOTE | ~2022-07-10 | US_ITS ---
EXAMINATION: US venous doppler [facility] DATE: 07/10/2022 14:04 INDICATION: Left lower limb pain. TECHNIQUE: Grayscale ultrasound images without and with compression and Doppler ultrasound images of the left lower extremity veins were obtained. COMPARISON: Ultrasound 03/11/2022 FINDINGS: The visualized portions of left common femoral vein, profunda (deep) femoral vein, femoral vein, popl iteal vein, peroneal veins, posterior tibial veins, and greater saphenous vein outflow are patent. IMPRESSION: 1. No deep venous thrombosis. Reviewed, dictated and finalized at location A. [employer]
== END 2022-07-10 12:34 | disposition home or self-care (01) ==
PROVIDERS: PCP Internal Medicine Hematology & Oncology; Visit Provider Internal Medicine Hematology & Oncology
DX: I82.4Y2 Acute embolism and thrombosis of unspecified deep veins of left proximal lower extremity (principal)
CPT/HCPCS: 93971

== ENCOUNTER 2022-09-10 09:15 | Emergency (ER) | payer BC, SELFPAY ==
--- NOTE | ~2022-09-10 | CT_ITS ---
EXAMINATION: CT abdomen pelvis w con DATE: 09/10/2022 11:17 INDICATION: Low back pain radiating to the abdomen and legs TECHNIQUE: Computed tomography (CT) of the abdomen and pelvis was performed with 100 mL Omnipaque-350 intravenous contrast. Automated exposure control and iterative reconstruction technique were employe d. The dose-length product was 696.72 mGy-cm. COMPARISON: None FINDINGS: Lung bases are clear. Heart size is normal. No pericardial or pleural effusion. Liver, gallbladder, s pleen, pancreas, bilateral adrenal glands and kidneys are normal. Bowels including the appendix are n ormal. The uterus is not identified and has likely been surgically resected. Bladder and bilateral ad nexa are normal. Small fat-containing umbilical hernia. No free intraperitoneal gas or fluid. No path ologically enlarged abdominal or pelvic lymphadenopathy. There are few bone islands in the pelvis. Murguia barticular sclerosis at the bilateral sacral iliac joint, right greater than left with mild subarticu lar cystic change on the right which could be related to osteoarthritis or inflammatory arthritis. IMPRESSION: 1. No acute intra-abdominal/pelvic process. 2. Osteoarthritis versus synovitis at the bilateral sacralized joints, right greater than left. Reviewed, dictated and finalized at location A. IMPRESSION: 1. No acute intra-abdominal/pelvic process. 2. Osteoarthritis versus synovitis at the bilateral sacralized joints, right gr eater than left.
[2022-09-10 09:22] VITALS: BP 140/93; PULSE 111; RESP 15; TEMP 37.6; O2SAT 100
--- NOTE | 2022-09-10 09:22 | ED.GENADULT ---
HPI - General Adult General Chief complaint: Back Pain/Injury Stated complaint: back and leg pain Time Seen by Provider: 09/10/22 09:18 Source: patient Mode of arrival: ambulatory Limitations: no limitations History of Present Illness HPI narrative: Patient is a 42 y/o female who presents to the ED with c/o low back pain. Patient is currently undergoing chemotherapy under Dr. Roberson for triple negative R breast CA. She states she began a new chemotherapy regimen 3 days ago and developed low back pain afterwards. She c/o pain across her low back and down bilateral legs, worse on the right currently. Pain worse with any type of movement, laying flat, sitting up, walking. Patient has not tried anything for the pain over the last 3 days. She denies any significant abdominal pain, nausea, vomiting, fevers, numbness, weakness, saddle anesthesia, bowel or bladder incontinence. Related Data Home Medications Medication Instructions Recorded Confirmed cholecalciferol (vitamin D3) 10 10 mcg PO DAILY 08/07/20 09/04/22 mcg (400 unit) chewable tablet (Vitamin D3) lidocaine-prilocaine 2.5 %-2.5 % See Rx Instructions .Route .COMPLEX 06/26/22 09/04/22 topical cream ondansetron HCl 8 mg tablet 8 mg PO Q8H PRN Nausea 06/26/22 09/04/22 cyanocobalamin (vitamin B-12) 500 250 mcg PO DAILY 07/10/22 09/04/22 mcg tablet (Vitamin B-12) ferrous sulfate 324 mg (65 mg 324 mg PO DAILY 07/10/22 09/04/22 iron) tablet,delayed release loratadine-pseudoephedrine ER 10 1 tablet PO DAILY 07/10/22 09/04/22 mg-240 mg tablet,extended [id number] (Claritin-D 24 Hour) Allergies Allergy/AdvReac Type Severity Reaction Status Date / Time povidone-iodine Allergy Rash Verified 09/10/22 09:56 [From Betadine] Review of Systems Review of Systems: CONSTITUTIONAL: Denies fever, chills, or sweats. CARDIOVASCULAR: Denies chest pain. RESPIRATORY: Denies dyspnea. GASTROINTESTINAL: Denies abdominal pain, nausea, vomiting, incontinence, or diarrhea. GENITOURINARY: Denies incontinence, dysuria or hematuria. MUSCULOSKELETAL: See HPI. NEUROLOGIC: See HPI. All systems reviewed & are unremarkable except as noted in HPI and below [facility] Past Medical History Medical History Breast CA Morbid obesity Surgical History Surgical History History of hysterectomy Social History Social History Smoking packs per day: 0.5 Smoking cigarettes per day: 10.0 Years smoked: 3 Smoking pack-years: 1.50 Smoking status: Current every day smoker Tobacco type: cigarettes Additional smoking assessment comments: 3 cigarettes a day x 2 years Alcohol use details: socially Living arrangements: with family Spiritual care concerns: No Exam Narrative: GENERAL: Well appearing, obese, non-toxic, in mild acute distress due to pain. HEAD: Normocephalic, atraumatic. NECK: Supple. No adenopathy, no masses. RESPIRATORY: Airway patent, respirations nonlabored. Clear to auscultation bilaterally, no rales, rhonchi, wheezing. CARDIOVASCULAR: Regular rate and rhythm without murmurs, rubs, or gallops. Radial pulses 2+ and equal bilaterally. ABDOMINAL: Soft, mild tenderness along right lower lateral abdomen. Nondistended, no hepatosplenomegaly. Normoactive BS. MUSCULOSKELETAL: Moves all extremities. Strength/ROM intact without gross deformities. No significant midline lumbar spinal tenderness. No significant tenderness to palpation throughout lumbosacral region/SI joints. Sensation intact. SKIN: Warm, dry, normal color. No rashes. NEURO: A&O X3. Speech clear. Cranial nerves II-XII grossly intact. Steady gait. No ataxic movements. PSYCHIATRIC: Anxious, tearful. Normal interaction. Course Vital Signs Vital signs: Vital Signs Temperature 99.6 F 09/10/22 09:22 Pulse Rate 111 H
[2022-09-10] MEDS: SODIUM CHLORIDE 0.9% IV 1,000 ML 999 ML IV CONT (10:03)
[2022-09-10 10:31] LABS: Immature Platelet Fraction Pct 6.9 % (0.9-11.2); Mean Corpuscular HGB Conc 33.3 g/dl (32-36); Mean Corpuscular Hemoglobin 32.2 pg (26-34); Mean Corpuscular Volume 96.5 fl (80-100); Mean Platelet Volume 11.6 fl (7.4-10.4); Platelet Count Result 107 k/mm3 (150-375); Red Blood Count 3.42 M/mm3 (4.2-5.4); Red Cell Distribution Width 15.9 % (11.5-14.5); White Blood Count 6.2 K/mm3 (4.5-10.0)
[2022-09-10 11:01] LABS: Alanine Aminotransferase 36 U/L (6-35); Alkaline Phosphatase 66 U/L (38-126); Anion Gap 4 mmol/L (8-16); Aspartate Amino Transferase 33 U/L (14-36); Bilirubin,Total 0.8 mg/dL (0.2-1.3); Blood Urea Nitrogen 13 mg/dL (7-17); Calcium 8.7 mg/dL (8.4-10.2); Carbon Dioxide 29 mmol/L (22-30); Chloride 104 mmol/L (98-107); Estimated CRCL calculation 92 ml/min; Estimated Glomerular Filt Rate > 60; Glucose 104 mg/dL (65-110); Potassium 4.2 mmol/L (3.4-5.0); Sodium 137 mmol/L (137-145)
--- NOTE | 2022-09-10 11:08 | PC.NURSE ---
Pt to CT scan via stretcher.
[2022-09-10 11:36] LABS: Total Cells Counted 100
[2022-09-10 11:37] LABS: Atypical Lymphocytes Present; Band Neutrophils Percent 6 % (0-6); Eosinophils Absolute Manual 0.18 K/mm3 (0.02-0.5); Eosinophils Percent Manual 3 % (0-4); Lymphocytes Absolute Manual 2.23 K/mm3 (1.1-4.5); Lymphocytes Percent Manual 36 % (18-44); Monocytes Absolute Manual 1.11 K/mm3 (0.1-0.90); Monocytes Percent Manual 18 % (3-9); Neutrophils Absolute Manual 2.66 K/mm3 (1.7-7.2); Neutrophils Percent Manual 37 % (46-73); Schistocytes None Seen (NORMAL)
[2022-09-10 11:41] VITALS: BP 130/89; PULSE 77; RESP 15; TEMP 36.7; O2SAT 100
[2022-09-10] MEDS: KETOROLAC 30 MG/ML VIAL (*BKC) IV PUSH (12:50)
[2022-09-10] MEDS: diazePAM INJ (*CRX) 10 MG/2 ML SYRINGE 2 MG IV PUSH (12:51)
[2022-09-10 12:52] VITALS: BP 136/89; PULSE 81; RESP 18; O2SAT 100
== END 2022-09-10 13:10 | disposition home or self-care (01) ==
PROVIDERS: Emergency Provider Physician Assistant; PCP Emergency Medicine
DX: M54.50 Low back pain, unspecified (principal); M79.605 Pain in left leg; M79.604 Pain in right leg; C50.919 Malignant neoplasm of unspecified site of unspecified female breast; Z17.1 Estrogen receptor negative status [ER-]; E66.01 Morbid (severe) obesity due to excess calories; Z68.37 Body mass index [BMI] 37.0-37.9, adult; Z79.899 Other long term (current) drug therapy; Z90.710 Acquired absence of both cervix and uterus
CPT/HCPCS: 36415; 74177; 80053; 85025; 85055; 96361; 96365; 96375; 99284; J0131; J1885; J3360; J7030; Q9967

== ENCOUNTER 2023-01-27 11:47 | Outpatient (CLI) | payer BC, SELFPAY ==
--- NOTE | ~2023-01-27 | XR_ITS ---
EXAMINATION: XR lumbar spine 2-3V DATE: 01/27/2023 12:14 INDICATION: Low back pain, history of breast cancer TECHNIQUE: Anteroposterior and lateral views of the lumbar spine, and cone-down lateral view of the l umbosacral junction were obtained. COMPARISON: CT, 09/10/2022 FINDINGS: Bone alignment is normal. There is no fracture. There is mild loss of intervertebral disc s pace height at L5-S1. Mild facet joint osteoarthritis is noted. There are phleboliths of the pelvis. There is questionable sclerosis of the S1 vertebral body. IMPRESSION: 1. Mild lumbar spondylosis. 2. Questionable sclerosis of the S1 vertebral body. Recommend correlation with PET/CT performed today , images pending. Reviewed, dictated and finalized at location A. IMPRESSION: 1. Mild lumbar spondylosis. 2. Questionable sclerosis of the S1 vertebral body. Recommend correlation with PET/CT performed today, images pending.
--- NOTE | ~2023-01-27 | PE_ITS ---
EXAMINATION: PET skull to mid thigh DATE: 01/27/2023 13:47 INDICATION: Malignant neoplasm of the upper outer quadrant of the right breast. Patient with triple n egative invasive ductal carcinoma of the right breast status post lumpectomy on 05/26/2022 with subse quent adjuvant chemotherapy and right breast radiation. TECHNIQUE: Blood glucose level was 98 mg/dL. 10.282 mCi of 18-fluorodeoxyglucose (18-FDG) was adminis tered i.v. Low dose computed tomography (CT) images were acquired from the base of the brain to the p roximal thighs for attenuation correction and anatomic localization. Positron emission tomography (PE T) images were acquired in the same distribution beginning 57 minutes after injection. The dose-lengt h product (DLP) was 753.07 mGy-cm. COMPARISON: 09/10/2022 FINDINGS: Head/neck: FDG uptake in the extraocular muscles and the pharynx, without suspicious CT correlate, is likely physiologic. No suspicious FDG uptake is identified. Chest: There are lumpectomy changes in the upper outer quadrant of the right breast with mild associa brady FDG uptake. No definite suspicious focus of FDG uptake is identified. There are changes of right axillary lymph node dissection. A right internal jugular Port-A-Cath ends with its tip in the proxima l right atrium. The lungs are free of acute opacities. No pleural effusion or pneumothorax. No pathol ogically enlarged thoracic lymph nodes are identified. The heart size is normal. Abdomen/pelvis/proximal thighs: Physiologic FDG activity is present in the bowel and urinary tract. N o abnormal FDG uptake is identified. The liver, spleen, pancreas, gallbladder, and adrenal glands are normal. The kidneys are unremarkable. No pathologically enlarged abdominal or pelvic lymph nodes are identified. No free intraperitoneal gas or evidence of bowel obstruction. The appendix is normal. Musculoskeletal: No abnormal FDG uptake is identified. No FDG uptake is identified in the area of sub tle sclerosis seen at S1. There is an umbilical hernia containing fat. IMPRESSION: 1. Lumpectomy changes in the upper outer quadrant of the right breast with mild associated FDG uptake , likely postsurgical in nature. No definite evidence of metastatic disease. Reviewed, dictated and finalized at location A. IMPRESSION: 1. Lumpectomy changes in the upper outer quadrant of the right breast with mild associated FDG uptake, likely postsurgical in nature. No definite evidence of metastatic disease.
[2023-01-27 12:22] LABS: Glucose Point of Care 98 mg/dl (65-105)
== END 2023-01-27 11:48 | disposition home or self-care (01) ==
PROVIDERS: PCP Emergency Medicine; Visit Provider Internal Medicine Hematology & Oncology
DX: M47.896 Other spondylosis, lumbar region (principal)
CPT/HCPCS: 72100; 78815; A9552

== ENCOUNTER 2023-08-10 11:00 | Outpatient (RCR) | payer OTHER, BC, SELFPAY ==
--- NOTE | 2023-07-06 16:18 | OPREHPOC ---
Outpatient Therapy Plan of Care This is a Multidisciplinary Plan of Care that may contain components documented by all disciplines (PT, OT, and ST.) PT Problem 1 PT Problem #1 Knowledge Deficit PT Goal 1 Goal *indep with self lymph drainage massage * indep with HEP PT Problem 2 PT Problem #2 Pain PT Goal 1 Goal 1* pt report NO heaviness or soreness of R breast PT Problem 3 PT Problem #3 Impaired Flexibility PT Goal 1 Goal with end range of R shoulder motions, not report any pain or tightness 1* flexion 2* abduction PT Problem 4 PT Problem #4 Impaired Lymphatic System PT Goal 1 Goal improve lymph system, evident by: palpation over R breast without firmness of tissue 1* medial- upper breast 2* lower-lateral breast 3* medial scar 4* lateral scar
--- NOTE | 2023-07-06 16:18 | PTOPEVAL1 ---
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 Her treatment is completed. She has returned to her full work duties and does not have any limitation in her activity level. Recently, she notes firmness of breast tissue and swelling over her breast. Also swelling of her legs. With the evaluation: R breast and lateral trunk have lymphedema, with increased size of breast and firmness of tissue and around her scar; the circumferential spot measurements of R/L arm are within 1 cm; she has good active shoulder ROM with reports of tightness with end ranges of flexion and abduction motions. Education provided with general lymphedema handout and UE precautions. Skilled PT services are indicated for lymphedema treatment with manual lymph drainage, therapeutic exercises and education for self care, self massage and compression garment for her to obtain. Plan of Care Interventions Manual Lymph Drainage,Manual Therapy,Patient/ Education,Therapeutic Activities, Therapeutic Exercise Other Interventions pt PT Services Indicated Yes Treatment Frequency and 2x/wk for 8 visits Duration These treatments will address the objective and functional deficits as defined above. The patient will be advanced safely and appropriately in order for the patient to progress towards his/her prior level of function. Additional exercises will be i
--- NOTE | 2023-07-06 16:27 | PCPTNOTE ---
pt was 15 min late for eval appt; stated she went to the wrong building.
--- NOTE | 2023-07-27 13:14 | PCPTNOTE ---
pt did not show for today's appt. Called her and she had her appt being tomorrow. She apologized for missing and reminded her of next appt, on Fri and 10:00. She stated she would be here.
--- NOTE | 2023-07-31 10:21 | PCPTNOTE ---
pt did not show for today's appt. Called and left voice mail message, with reminder of next appt.
--- NOTE | 2023-08-10 12:02 | PCPTNOTE ---
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
--- NOTE | 2023-08-14 11:30 | PCPTNOTE ---
pt did not show for today's appt, called and left her voice mail message. Today was her last appt scheduled.
--- NOTE | 2023-09-01 12:43 | PCPTNOTE ---
pt did not show for today's appt. Called her and left a voice message for her to return message, if she has any further needs, or she will be discharged from PT.
--- NOTE | 2023-09-16 13:25 | PTOPDC ---
Assessment and note entered by Danielle Minaya, PT Discharge Information Assessment Status Discharge - Pt Not Present Diagnosis lymphedema R breast Onset December 2022 Assessment PT Clinical Summary Marvin has received a total of 8 PT sessions from Jul 06 to August 09. She did not show for 4 appointments. She will be discharged from PT at this time. The goals were not addressed. Plan of Care PT Services Indicated No
== END 2023-09-16 13:47 | disposition home or self-care (01) ==
LOC: ANHPT 11:00
PROVIDERS: PCP Emergency Medicine; Visit Provider Internal Medicine Hematology & Oncology
DX: I89.0 Lymphedema, not elsewhere classified (principal); C50.411 Malignant neoplasm of upper-outer quadrant of right female breast; Z17.1 Estrogen receptor negative status [ER-]
CPT/HCPCS: 97110; 97140; 97161; 97530; 99199

== ENCOUNTER 2023-10-05 08:46 | Outpatient (CLI) | payer OTHER, BC, SELFPAY ==
--- NOTE | ~2023-10-05 | DEXA_ITS ---
Bone Density Report Name: LUIS ENRIQUE COLON Age: 43 Sex: Female Ethnicity: White Date of : 1980 Indication: postmenopausal; cancer; Referring Provider: NARCISO AGGARWAL Study: Bone densitometry was performed. Exam Date: October 05, 2023 Accession number: [id number] Bone Density: Region BMD T-score Z-score Classification AP Spine(L1-L4) 0.948 -0.9 -0.5 Normal Femoral Neck (Left) 0.880 0.3 0.7 Normal Total Hip (Left) 1.119 1.4 1.7 Normal Femoral Neck (Right) 0.938 0.8 1.2 Normal Total Hip (Right) 1.031 0.7 1.0 Normal Total Hip Mean 1.075 1.1 1.4 Normal World Health Organization criteria for BMD impression classify patients as: Normal (T-score at or above -1.0), Osteopenia (T-score between -1.0 and -2.5), or Osteoporosis (T-score at or below -2.5). 10-year Fracture Risk: FRAX not reported because: All T-scores for Spine Total, Hip Total, Femoral Neck at or above -1.0 Clinical Information Provided by Patient: Has used the following medications: Vitamin D Has the following medical conditions: Cancer Patient maximum height was 61 No regular weight bearing exercise Onset of menses at age 11 Number of children 3 Impression: The patient has normal bone mass. Discussion: BONE DENSITY IS ABOVE THE MINIMUM DESIRABLE LEVEL AT ALL SKELETAL SITES TESTED. This patient?s bone mineral density is above the minimum desirable level (T-score -1.0 or better) at all sites measured. The patient should follow a healthful lifestyle (good nutrition with adequate calcium and vitamin D, and appropriate weight-bearing exercise). Follow-Up: Consider repeating this study in 5 years or sooner if there is some new clinical indication. Reported by: MURALI on 10/05/2023 9:13:00 AM. Reviewed, dictated and finalized at location A. [facility]
== END 2023-10-05 08:47 | disposition home or self-care (01) ==
LOC: ANHIMG 08:51
PROVIDERS: PCP Emergency Medicine; Visit Provider Internal Medicine Hematology & Oncology
DX: M85.89 Other specified disorders of bone density and structure, multiple sites (principal); Z78.0 Asymptomatic menopausal state
CPT/HCPCS: 77080

== ENCOUNTER 2023-11-13 11:30 | Outpatient (CLI) | payer OTHER, BC, SELFPAY ==
[2023-11-13 11:43] LABS: Hematocrit 42.6 % (37.0-47.0); Hemoglobin 14.1 g/dL (12.0-15.0); Mean Corpuscular HGB Conc 33.1 g/dl (32-36); Mean Corpuscular Hemoglobin 30.3 pg (26-34); Mean Corpuscular Volume 91.4 fl (80-100); Mean Platelet Volume 9.8 fl (7.4-10.4); Platelet Count Result 215 k/mm3 (150-375); Red Blood Count 4.66 M/mm3 (4.2-5.4); Red Cell Distribution Width 13.4 % (11.5-14.5); White Blood Count 3.3 K/mm3 (4.5-10.0)
[2023-11-13 11:53] LABS: Lymphocytes Absolute Manual 1.45 K/mm3 (1.1-4.5); Monocytes Absolute Manual 0.26 K/mm3 (0.1-0.90); Monocytes Percent Manual 8 % (3-9); Neutrophils Percent Manual 48 % (46-73); Platelet Estimate Adequate (Adequate); Schistocytes None Seen; Total Cells Counted 100
[2023-11-13 12:40] LABS: Anion Gap 3 mmol/L (4-12); Blood Urea Nitrogen 17 mg/dL (7-17); Calcium 9.2 mg/dL (8.4-10.2); Carbon Dioxide 30 mmol/L (22-30); Chloride 109 mmol/L (98-107); Estimated Glomerular Filt Rate > 60; Glucose 95 mg/dL (65-110); Potassium 3.9 mmol/L (3.4-5.0); Sodium 142 mmol/L (137-145)
[2023-11-17 07:09] LABS: CA 15-3 6 U/mL (<32)
== END 2023-11-13 11:31 | disposition home or self-care (01) ==
LOC: ANHLAB 11:32
PROVIDERS: PCP Emergency Medicine; Visit Provider Internal Medicine Hematology & Oncology
DX: C50.411 Malignant neoplasm of upper-outer quadrant of right female breast (principal); Z17.1 Estrogen receptor negative status [ER-]
CPT/HCPCS: 36415; 80048; 85025; 86300

== ENCOUNTER 2023-12-07 08:38 | Outpatient (CLI) | payer OTHER, BC, SELFPAY ==
[2023-12-07 09:03] LABS: Basophils Percent Auto 0.3 % (0.2-1.2); Eosinophils Percent Auto 0.9 % (0-4.4); Hematocrit 40.3 % (37.0-47.0); Hemoglobin 13.4 g/dL (12.0-15.0); Lymphocytes Absolute Auto 1.64 K/mm3 (0.9-3.2); Lymphocytes Percent Auto 47.3 % (18.3-44.2); Mean Corpuscular HGB Conc 33.3 g/dl (32-36); Mean Corpuscular Hemoglobin 30.3 pg (26-34); Mean Corpuscular Volume 91.2 fl (80-100); Mean Platelet Volume 10.3 fl (7.4-10.4); Monocytes Absolute Auto 0.3 K/mm3 (0.1-0.6); Monocytes Percent Auto 8.6 % (2.6-8.5); Neutrophils Absolute Auto 1.5 K/mm3 (1.3-6.7); Neutrophils Percent Auto 42.9 % (45.5-73.1); Platelet Count Result 200 k/mm3 (150-375); Red Blood Count 4.42 M/mm3 (4.2-5.4); Red Cell Distribution Width 13.2 % (11.5-14.5); White Blood Count 3.5 K/mm3 (4.5-10.0)
[2023-12-07 12:06] LABS: Alanine Aminotransferase 30 U/L (6-35); Albumin Level 4.5 g/dL (3.5-5.1); Alkaline Phosphatase 94 U/L (38-126); Anion Gap 6 mmol/L (4-12); Aspartate Amino Transferase 34 U/L (14-36); Bilirubin,Total 0.4 mg/dL (0.2-1.3); Blood Urea Nitrogen 13 mg/dL (7-17); Calcium 9.6 mg/dL (8.4-10.2); Carbon Dioxide 29 mmol/L (22-30); Chloride 104 mmol/L (98-107); Estimated Glomerular Filt Rate > 60; Glucose 97 mg/dL (65-110); Potassium 4.1 mmol/L (3.4-5.0); Sodium 139 mmol/L (137-145)
[2023-12-09 11:39] LABS: CA 15-3 6 U/mL (<32)
== END 2023-12-07 08:39 | disposition home or self-care (01) ==
PROVIDERS: PCP Emergency Medicine; Visit Provider Internal Medicine Hematology & Oncology
DX: C50.411 Malignant neoplasm of upper-outer quadrant of right female breast (principal); Z17.1 Estrogen receptor negative status [ER-]
CPT/HCPCS: 36415; 80053; 85025; 86300

== ENCOUNTER 2023-12-11 10:14 | Outpatient (CLI) | payer OTHER, BC, SELFPAY ==
--- NOTE | ~2023-12-11 | US_ITS ---
Limited Abdominal Sonogram: Real-time sonographic imaging of the right upper quadrant was performed. Clinical History: Abnormal liver enzymes Findings: The liver appears normal with no evidence of mass lesion or bile duct dilatation. Main por jeremías vein demonstrates normal direction of flow. The gallbladder is well distended, and appears normal with no evidence of gallstone or wall thickening. The common bile duct measures 3 mm. The visualize d pancreas, aorta, and IVC are unremarkable. Impression: No significant abnormality seen. Reviewed, dictated and finalized at location M. Impression: No significant abnormality seen.
== END 2023-12-11 10:15 | disposition home or self-care (01) ==
PROVIDERS: PCP Emergency Medicine; Visit Provider Emergency Medicine
DX: R74.8 Abnormal levels of other serum enzymes (principal)
CPT/HCPCS: 76705

== ENCOUNTER 2024-01-16 08:35 | Emergency (ER) | payer OTHER, BC, SELFPAY ==
--- NOTE | 2024-01-16 08:52 | ED.EYEPROB ---
HPI - Eye Problem General Chief complaint: Eye Problems Stated complaint: EYE REDNESS/DRAINAGE Time Seen by Provider: 01/16/24 08:52 Source: patient, RN notes reviewed and old records reviewed Mode of arrival: ambulatory Limitations: no limitations History of Present Illness HPI Narrative: 43-year-old female to [facility] for complaint of right eye redness, light sensitivity and excessive tearing for 2 days. Patient also endorsing right upper eyelid swelling and tenderness upon wakening this morning. Patient denies itching, injury, pain. Patient states that she wears daily contacts and that she has not worn them for 2 days. Patient reports mildly blurred vision in right eye. Patient reports history of breast cancer. 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 Patient states that she was recently a knowingly exposed to a COVID positive patient. Patient states that she took a negative test at home last night. patient resting calmly in exam room. Respirations even and nonlabored. Patient in no acute distress. Related Data Home Medications Medication Instructions Recorded Confirmed cholecalciferol (vitamin D3) 10 10 mcg PO DAILY 08/07/20 01/16/24 mcg (400 unit) chewable tablet (Vitamin D3) Allergies Allergy/AdvReac Type Severity Reaction Status Date / Time povidone-iodine Allergy Rash Verified 01/16/24 08:46 [From Betadine] Review of Systems Review of Systems: All systems reviewed & are unremarkable except as noted in HPI and below Constitutional: Constitutional: Reports no additional constitutional complaints Eyes: Eyes: Reports as per HPI, Denies blind spots, Reports blurry vision, Denies change in vision, Denies diplopia, Reports eye discharge, Denies itchy eyes, Denies loss of peripheral vision, Denies loss of vision, Denies other visual disturbances, Denies eye pain, Reports requires corrective lenses, Reports photophobia, Denies spots in vision and Denies tunnel vision ENT: Reports system reviewed and no additional complaints, except as documented Cardiovascular: Cardiovascular: Reports no additional cardiovascular complaints, Denies chest pain and Denies dyspnea Respiratory: Respiratory: Reports no additional respiratory complaints, Denies cough and Denies dyspnea Musculoskeletal: Musculoskeletal: Reports no additional musculoskeletal complaints Neurologic: Reports system reviewed and no additional complaints, except as documented Psychiatric: Psychiatric: Reports no additional psychiatric complaints PMFSH Past Medical History Medical History Breast CA Morbid obesity Surgical History Surgical History History of hysterectomy Social History Social History Smoking packs per day: 0.5 Smoking cigarettes per day: 10.0 Years smoked: 3 Smoking pack-years: 1.50 Smoking status: Current every day smoker Tobacco type: cigarettes Additional smoking assessment comments: 3 cigarettes a day x 2 years Alcohol use details: socially Living arrangements: with family Spiritual care concerns: No Comments At the time of my signature, I reviewed and agree with the nursing past medical, surgical, social, and family history. There is no relevant family history pertinent to the patient complaint. Exam Const: General: cooperative, no acute distress, alert, uncomfortable and well nourished Nutritional Appearance: well nourished Orientation/consciousness: patient oriented x3 Limitations: no limitations HENMT: Head: normal to inspection Ears: external ears normal, Abnormal EAC present EAC tenderness on the left and TM abnormal erythematous on the left and with fluid behind the TM on the left Face/Nose/Sinus: Normal external nose present, Normal
[2024-01-16 08:54] VITALS: BP 141/86; PULSE 75; RESP 16; TEMP 36.1; O2SAT 98
== END 2024-01-16 09:48 | disposition home or self-care (01) ==
PROVIDERS: Emergency Provider Nurse Practitioner Family; PCP Emergency Medicine
DX: H20.9 Unspecified iridocyclitis (principal); H66.92 Otitis media, unspecified, left ear; F17.210 Nicotine dependence, cigarettes, uncomplicated; E66.01 Morbid (severe) obesity due to excess calories; Z68.41 Body mass index [BMI] 40.0-44.9, adult; Z85.3 Personal history of malignant neoplasm of breast
CPT/HCPCS: 99213; G0463

== ENCOUNTER 2024-01-28 12:28 | Emergency (ER) | payer OTHER, BC, SELFPAY ==
--- NOTE | 2024-01-28 12:39 | ED.GENADULT ---
HPI - General Adult General Chief complaint: Upper Respiratory Infection Stated complaint: SINUS CONGESTION/COUGH Time Seen by Provider: 01/28/24 12:39 Source: patient, RN notes reviewed and old records reviewed Mode of arrival: ambulatory Limitations: no limitations History of Present Illness HPI narrative: 43-year-old female to [facility] for complaint of sinus congestion, nonproductive cough, low-grade fever intermittently for 5 days. Patient states that when symptoms first started she had a headache and fatigue that have since resolved. Patient states temperature got up to 101.2?. Patient reports that cough is only present when lying down. Patient currently denies sore throat, headache, fatigue, GI complaints, nasal discharge, shortness of breath, chest pain, difficulty swallowing. Patient has attempted to treat symptoms at home with [id number] medications including Mucinex without relief. Patient reports dry, burning rash to mid lower forehead and bilateral nares for 2 days. patient states she has attempted to treat at home with cocoa butter with some relief. Patient is sitting comfortably in exam room. Respirations even and nonlabored. Patient able to speak in full sentences without difficulty. Patient tolerate fluids by mouth. Patient in no acute distress. Related Data Home Medications Medication Instructions Recorded Confirmed cholecalciferol (vitamin D3) 10 10 mcg PO DAILY 08/07/20 01/28/24 mcg (400 unit) chewable tablet (Vitamin D3) Allergies Allergy/AdvReac Type Severity Reaction Status Date / Time povidone-iodine Allergy Rash Verified 01/28/24 13:43 [From Betadine] Review of Systems Review of Systems: All systems reviewed & are unremarkable except as noted in HPI and below Constitutional: Constitutional: Reports as per HPI and Reports fever(s) Eyes: Eyes: Reports no additional eye complaints ENT: Reports system reviewed and no additional complaints, except as documented Cardiovascular: Cardiovascular: Reports no additional cardiovascular complaints, Denies chest pain and Denies dyspnea Respiratory: Respiratory: Reports no additional respiratory complaints, Reports cough and Denies dyspnea Musculoskeletal: Musculoskeletal: Reports no additional musculoskeletal complaints Neurologic: Reports system reviewed and no additional complaints, except as documented Psychiatric: Psychiatric: Reports no additional psychiatric complaints [facility] Past Medical History Medical History Breast CA Morbid obesity Surgical History Surgical History History of hysterectomy Social History Social History Smoking packs per day: 0.5 Smoking cigarettes per day: 10.0 Years smoked: 3 Smoking pack-years: 1.50 Smoking status: Current every day smoker Tobacco type: cigarettes Additional smoking assessment comments: 3 cigarettes a day x 2 years Alcohol use details: socially Living arrangements: with family Spiritual care concerns: No Comments At the time of my signature, I reviewed and agree with the nursing past medical, surgical, social, and family history. There is no relevant family history pertinent to the patient complaint. Exam Const: General: cooperative, no acute distress, alert, tired appearing and well nourished Nutritional Appearance: well nourished Orientation/consciousness: patient oriented x3 Limitations: no limitations HENMT: Head: normal to inspection Ears: external ears normal and TM abnormal with fluid behind the TM bilateral and diffuse Face/Nose/Sinus: Normal external nose present, Abnormal mucous membranes and turbinates present erythematous, normal facial exam, No erythema and No edema Face and sinus: no erythema, no edema and sinus tenderness maxillary Mouth: Yes Tisha
[2024-01-28 12:40] VITALS: BP 135/97; PULSE 74; RESP 16; TEMP 36.2; O2SAT 97
== END 2024-01-28 13:30 | disposition home or self-care (01) ==
PROVIDERS: Emergency Provider Nurse Practitioner Family; PCP Emergency Medicine
DX: J32.9 Chronic sinusitis, unspecified (principal); R21 Rash and other nonspecific skin eruption; F17.210 Nicotine dependence, cigarettes, uncomplicated; E66.01 Morbid (severe) obesity due to excess calories; Z68.39 Body mass index [BMI] 39.0-39.9, adult; Z85.3 Personal history of malignant neoplasm of breast
CPT/HCPCS: 99213; G0463

== ENCOUNTER 2024-04-02 12:36 | Emergency (ER) | payer OTHER, BC, SELFPAY ==
[2024-04-02 12:50] VITALS: BP 133/92; PULSE 67; RESP 16; TEMP 36.6; O2SAT 97
--- NOTE | 2024-04-02 13:39 | ED_ITS ---
HPI - URI/Sore Throat General Chief Complaint: Upper Respiratory Infection Stated Complaint: Sore Throat/Ear Pain Time Seen by Provider: 04/02/24 13:39 Source: patient, RN notes reviewed and old records reviewed Mode of arrival: ambulatory Limitations: no limitations History of Present Illness HPI Narrative: 44-year-old female to [facility] with complaint of occasional cough that started last night and sore throat that started around 2:00 a.m.. Patient reports treating at home with salt water gargles. Patient concerned for strep throat. Patient able to tolerate fluids by mouth. Patient resting in exam room comfortably, no acute distress. Related Data Allergies Allergy/AdvReac Type Severity Reaction Status Date / Time povidone-iodine Allergy Rash Verified 04/02/24 13:02 [From Betadine] Review of Systems Review of Systems: All systems reviewed & are unremarkable except as noted in HPI and below Constitutional: Constitutional: Reports no additional constitutional complaints Eyes: Eyes: Reports no additional eye complaints ENT: Reports as per HPI and Reports sore throat Cardiovascular: Cardiovascular: Reports no additional cardiovascular complaints, Denies chest pain and Denies dyspnea Respiratory: Respiratory: Reports no additional respiratory complaints, Reports cough and Denies dyspnea Musculoskeletal: Musculoskeletal: Reports no additional musculoskeletal complaints Neurologic: Reports system reviewed and no additional complaints, except as documented Psychiatric: Psychiatric: Reports no additional psychiatric complaints PMFSH Past Medical History Medical History Breast CA Morbid obesity Surgical History Surgical History History of hysterectomy Social History Social History Smoking packs per day: 0.5 Smoking cigarettes per day: 10.0 Years smoked: 3 Smoking pack-years: 1.50 Smoking status: Current every day smoker Tobacco type: cigarettes Additional smoking assessment comments: 3 cigarettes a day x 2 years Alcohol use details: socially Living arrangements: with family Spiritual care concerns: No Comments At the time of my signature, I reviewed and agree with the nursing past medical, surgical, social, and family history. There is no relevant family history pertinent to the patient complaint. Exam Const: General: cooperative, healthy appearing, comfortable, no acute distress, alert and well nourished Nutritional Appearance: well nourished Orientation/consciousness: patient oriented x3 Limitations: no limitations HENMT: Head: normal to inspection Ears: external ears normal Face/Nose/Sinus: Normal external nose present, Normal nares present, normal facial exam, No erythema and No edema Face and sinus: normal facial exam, no erythema and no edema Mouth: Yes Normal oral and palatal mucosa present Throat: posterior oropharynx abnormal erythema Eyes: General: appearance normal, both eyes and all related structures Neck: Neck: normal visual inspection, full ROM and no meningeal signs Lymphatic: no lymphadenopathy noted and no lymphedema noted Chest: Chest palpation & inspection: normal inspection of the chest Resp: Effort & Inspection: normal respiratory effort and able to speak in complete sentences Auscultation: clear to auscultation bilaterally Cardio: Jugular venous distension: no JVD Rate: regular rate Rhythm: regular rhythm Back/Spine/Pelvis: Cervical Spine: cervical ROM normal Skin: General skin exam: normal color, no rashes or lesions noted and turgor normal Neuro: General: patient oriented x3, gait normal, moves all extremities and no meningeal signs Speech: normal speech Gait exam (Neuro): Normal gait present Extrem: General: normal to inspection, full ROM and capillary refill normal Psych: Appearance: grossly normal and well kempt Course Course Emergency Course: Some parts of this dictation were generated by voice recognition software and may contain typographical and/or grammatical inaccuracies. Level of Care: Express Care Visit Vital Signs Vital signs: Vital Signs Temperature 36.6 C 04/02/24 12:50 Pulse Rate 67 04/02/24 12:50 Respiratory Rate 16 04/02/24 12:50 Blood Pressure 133/92 H 04/02/24 12:50 Pulse Oximetry 97 04/02/24 12:50 Temperature 36.6 C 04/02/24 12:50 Pulse Rate 67 04/02/24 12:50 Respiratory Rate 16 04/02/24 12:50 Blood Pressure 133/92 H 04/02/24 12:50 Pulse Oximetry 97 04/02/24 12:50 reviewed MDM - URI/Sore Throat MDM Narrative Medical decision making narrative: 44-year-old female to [facility] Care with complaint of occasional cough that started last night and sore throat that started around 2:00 a.m.. Patient reports treating at home with salt water gargles. Patient concerned for strep throat. Patient able to tolerate fluids by mouth. Patient resting in exam room comfortably, no acute distress. on exam, posterior oropharynx erythematous. Exam otherwise unremarkable. Patient tested negative for strep in clinic. Culture sent. Patient is sitting comfortably in exam room nontoxic in appearance. Patient appropriate for outpatient treatment and follow-up. Discharge instructions reviewed with patient, as well as provided in writing per nursing staff. The instructions also include specific and strict return/GO TO THE ER as well as f/u information. All questions have been answered, and the patient deny any further questions with discharge and discharge plan. Some parts of this dictation were generated by voice recognition software and may contain typographical and/or grammatical inaccuracies. Differential Diagnosis Differential diagnosis: Likely upper respiratory infection, croup, otitis media, sinusitis, viral infection, bronchitis, influenza and pharyngitis Lab Data Labs: Lab Results 04/02/24 Range/Units 13:38 POC Grp A Strep Screen Negative (Negative) Discharge Plan Discharge Clinical Impression: Sinusitis Patient Disposition: Home, Self-Care Condition: Stable Instructions: Sinusitis (ED) Additional Instructions: Your rapid strep swab was negative today at [facility]. A throat culture will be sent to the laboratory for further testing. If the test is positive, you will receive a phone call within 48 hours and an appropriate antibiotic will be initiated at that time. Your symptoms are likely due to a viral illness, which is not treated with antibiotics. Viral symptoms can be present for up to a few weeks. -Alternate Tylenol and Motrin per package directions for fever or pain. -Antihistamine medication such as Benadryl at night and Zyrtec/Claritin/Velma during the day can help improve symptoms. -Use Flonase twice a day for 5 days then daily to help reduce the inflammation and dry up your sinuses. -You can also use Sudafed or Mucinex. Be sure to drink plenty of water with these medications at least 8 ounces with every dose and it is important to drink 8 to 10 glasses of water per day. Water is a natural decongestant -Eat and drink things that are easy to swallow, like tea or soup, or popsicles. -Oral rinses such as: Salt water gargles and/or may use topical anesthetic (eg. Chloraseptic spray) or lozenges to relieve dryness or throat pain). -Frequent hand washing or hand director organizational is one of the best ways to prevent spread of infection. -Using a vaporizer or humidifier at night will also help thin secretions and help with coughing up phlegm. -Follow up with primary care provider in 2-3 days if condition is not improving; or seek ER visit if you have trouble breathing, cannot drink enough fluids, have muffled voice, difficulty opening your mouth, or severe swelling. Prescriptions: New fluticasone propionate [Flonase Allergy Relief] 50 mcg/actuation spray,suspension 1 spray intranasal BID Qty: 16 0RF Rx Instructions: administer into each nostril Follow-up/Referrals: PHYSICIAN,HIGH SCHOOL BUSINESS TEACHER [Primary Care Provider] -
[2024-04-02 13:40] LABS: EDSTREPNEGPOS1 Negative (Negative)
== END 2024-04-02 13:58 | disposition home or self-care (01) ==
PROVIDERS: Emergency Provider Nurse Practitioner Family
DX: J32.9 Chronic sinusitis, unspecified (principal); F17.210 Nicotine dependence, cigarettes, uncomplicated; E66.01 Morbid (severe) obesity due to excess calories; Z68.38 Body mass index [BMI] 38.0-38.9, adult; Z85.3 Personal history of malignant neoplasm of breast
CPT/HCPCS: 87081; 87880; 99213; G0463

== ENCOUNTER 2024-05-18 08:06 | Emergency (ER) | payer OTHER, BC, SELFPAY ==
--- NOTE | ~2024-05-18 | XR_ITS ---
XR chest 2V Ordering provider: Danyel Lau APRN History: 44 years Female with . cough,sob . Comparison: None. FINDINGS: MEDIASTINUM: The cardiac silhouette is not enlarged. LUNGS: No infiltrates, effusions or pneumothorax. OTHER: No free air under the diaphragm. IMPRESSION: No acute cardiopulmonary pathology. Reviewed, dictated and finalized at location A. 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
--- NOTE | 2024-05-18 08:10 | ED.URI ---
HPI - URI/Sore Throat General Chief Complaint: Upper Respiratory Infection Stated Complaint: Trouble Breathing Time Seen by Provider: 05/18/24 08:08 Source: patient Mode of arrival: ambulatory Limitations: no limitations History of Present Illness HPI Narrative: Marvin is a 44-year-old female patient presenting to the clinic today with complaints of difficulty breathing, cough, and nasal congestion. She reports her symptoms started last night. Did not take any medications to treat her symptoms other than Elderberry tea. Denies any fevers, chills, or body aches. Denies sore throat. Denies any chest pain. Feels as though she is having the gasp for air intermittently. At this time she is able to speak in full sentences without gasping for air. She is a current smoker. MD elicited complaint: cough, nasal congestion and other (Shortness of breath) Related Data Allergies Allergy/AdvReac Type Severity Reaction Status Date / Time povidone-iodine (From Allergy Rash Verified 04/02/24 13:02 Betadine) Review of Systems Review of Systems: Pertinent positives per HPI. Patient denies any fever, chills, rash, headache, visual changes, dizziness, chest pain, palpitations, nausea, vomiting, diarrhea, constipation, abdominal pain, or any urinary issues. [facility] Past Medical History Medical History Breast CA Morbid obesity Surgical History Surgical History History of hysterectomy Social History Social History Smoking packs per day: 0.5 Smoking cigarettes per day: 10.0 Years smoked: 3 Smoking pack-years: 1.50 Smoking status: Current every day smoker Tobacco type: cigarettes Additional smoking assessment comments: 3 cigarettes a day x 2 years Alcohol use details: socially Living arrangements: with family Spiritual care concerns: No Comments At the time of my signature, I reviewed and agree with the nursing past medical, surgical, social, and family history. There is no relevant family history pertinent to the patient complaint. Exam Narrative: General: Well-developed, morbidly obese, in no apparent distress Head: Normocephalic, atraumatic Eyes: Pupils equally round and reactive to light bilaterally, EOM intact, sclera and conjunctive clear, no discharge, lids normal Ears: TMs intact and clear, ear canals clear, no drainage, grossly hearing normal. Nose: Nares patent, clear nasal discharge, no inflammation, no sinus tenderness. Mouth: Oral pharynx without lesions or masses, good dentition, MMM. Neck: Supple, trachea midline, no enlargement of anterior or posterior cervical nodes, no thyroid masses or goiter palpable. Cardio: Regular rate and rhythm, s1 and s2 normal, no murmur appreciated. Resp: Clear to auscultation bilaterally, no rhonchi, rales, wheezing or rubs Course Course Emergency Course: Portions of this record may have been created with voice recognition software. Level of Care: Express Care Visit Vital Signs Vital signs: Vital Signs Oxygen Delivery Room Air 05/18/24 08:15 Temperature 36.2 C L 05/18/24 08:17 Pulse Rate 75 05/18/24 08:17 Respiratory Rate 16 05/18/24 08:17 Blood Pressure 123/91 H 05/18/24 08:17 Pulse Oximetry 96 05/18/24 08:17 Oxygen Delivery Room Air 05/18/24 08:15 Vital signs reviewed MDM - URI/Sore Throat MDM Narrative Medical decision making narrative: At the time of visit patient is resting comfortably on the exam table. Patient appears to be nontoxic. Labs: COVID and influenza testing was performed and is negative in the clinic today. Diagnostics: Chest x-rays negative for any acute cardiopulmonary process. Plan: I suspect patient has URI with cough and congestion. Prescription for albuterol inhaler was sent to the pharmacy as needed for periods of cough, shortness breath, or wheezing. Supportive measures were discussed with the patient and they voiced understanding discharge instructions and agrees to treatment plan. Return precautions reviewed Differential Diagnosis Differential diagnosis: Likely upper respiratory infection, croup, otitis media, sinusitis, viral infection, bronchitis, influenza and pharyngitis Lab Data Labs: Lab Results 05/18/24 Range/Units 08:47 POC Influenza A Ag Negative (Negative) POC Influenza B Ag Negative (Negative) POC SARS CoV-2 Ag Pending Imaging Data Radiologist's impression: ITS Impressions Chest X-Ray 05/18/24 08:49 IMPRESSION: No acute cardiopulmonary pathology. Discharge Plan Discharge Clinical Impression: Upper respiratory infection with cough and congestion Patient Disposition: Home, Self-Care Condition: Stable Instructions: Antibiotic Form, Cold Symptoms (ED) Additional Instructions: COVID and influenza testing was negative in the clinic today. Chest x-rays negative for any acute cardiopulmonary process. Take prescription medications only as prescribed-albuterol inhaler May take DayQuil/NyQuil for cold/flu symptoms Increase fluids and stay well hydrated Tylenol/motrin for pain/fever Flonase and OTC antihistamines as directed Vicks vapor rub to open sinuses Sinus rinses for congestion Cepacol spray, cough drops, throat lozenges, warm tea with honey/lemon, gargle salt water to soothe throat BRAT diet for diarrhea Clear liquids x 24 hours then advance as tolerated for nausea/vomiting Go to the ED if you develop a worsening in your condition- high fever not controlled by Tylenol or Motrin, dehydration, weakness, lethargy, shortness of breath, or chest pain. Follow up with your PCP in 3-5 days if symptoms persist. Patient Language: Portuguese Prescriptions: New albuterol sulfate 90 mcg/actuation HFA aerosol inhaler 2 puff inhalation Q4-6H PRN (Reason: shortness of breath or wheezing) 30 Days Qty: 8.5 0RF No Action fluticasone propionate [Flonase Allergy Relief] 50 mcg/actuation spray,suspension 1 spray intranasal BID Qty: 16 0RF Rx Instructions: administer into each nostril Follow-up/Referrals: Gian He MD [Primary Care Provider] - Stand Alone Forms: Work/School Release IP Time of Disposition: 08:54 Quality NIHSS Nursing Documentation ED NIHSS nursing documentation: reviewed/agree
[2024-05-18 08:17] VITALS: BP 123/91; PULSE 75; RESP 16; TEMP 36.2; O2SAT 96
[2024-05-18 08:48] LABS: EDINFLUASCREEN Negative (Negative); EDINFLUBSCREEN Negative (Negative)
[2024-05-18 14:03] LABS: EDCOVIDSCREEN Yes (Negative)
== END 2024-05-18 09:00 | disposition home or self-care (01) ==
PROVIDERS: Emergency Provider Nurse Practitioner Family; PCP Emergency Medicine
DX: J06.9 Acute upper respiratory infection, unspecified (principal); Z20.822 Contact with and (suspected) exposure to COVID-19; E66.01 Morbid (severe) obesity due to excess calories; Z68.39 Body mass index [BMI] 39.0-39.9, adult; F17.210 Nicotine dependence, cigarettes, uncomplicated; Z85.3 Personal history of malignant neoplasm of breast
CPT/HCPCS: 71046; 87426; 87804; 99213; G0463

== ENCOUNTER 2024-08-03 10:23 | Outpatient (CLI) | payer OTHER, BC, SELFPAY ==
[2024-08-03 10:45] LABS: Basophils Percent Auto 0.3 % (0.2-1.2); Eosinophils Percent Auto 0.9 % (0-4.4); Hematocrit 40.5 % (37.0-47.0); Hemoglobin 13.5 g/dL (12.0-15.0); Lymphocytes Absolute Auto 1.97 K/mm3 (0.9-3.2); Lymphocytes Percent Auto 57.3 % (18.3-44.2); Mean Corpuscular HGB Conc 33.3 g/dl (32-36); Monocytes Absolute Auto 0.3 K/mm3 (0.1-0.6); Monocytes Percent Auto 7.8 % (2.6-8.5); Neutrophils Absolute Auto 1.2 K/mm3 (1.3-6.7); Neutrophils Percent Auto 33.7 % (45.5-73.1); Platelet Count Result 182 k/mm3 (150-375); White Blood Count 3.4 K/mm3 (4.5-10.0)
[2024-08-03 11:37] LABS: Alanine Aminotransferase 20 U/L (6-35); Albumin Level 3.9 g/dL (3.5-5.1); Alkaline Phosphatase 82 U/L (38-126); Anion Gap 7 mmol/L (4-12); Aspartate Amino Transferase 26 U/L (14-36); Bilirubin,Total 0.5 mg/dL (0.2-1.3); Blood Urea Nitrogen 13 mg/dL (7-17); Calcium 9.3 mg/dL (8.4-10.2); Carbon Dioxide 30 mmol/L (22-30); Chloride 104 mmol/L (98-107); Estimated Glomerular Filt Rate > 60; Glucose 99 mg/dL (65-110); Sodium 141 mmol/L (137-145)
--- OUTSIDE RECORDS SUMMARY | 2024-08-03 11:51 | XMS_ITS | Encounter Summary ---
Author Organization [facility] Health Address [address] [place] [address] Care Team Providers Care Underwater Welder Name Role Phone Gian He MD Primary Care Provider [phone] Encounter Details Date Type Department Care Team (Late st Contact Info) Description 02/05/2024 Telephone [facility] Dermatology [facility] [place] [id number] None, Physician [address] [place] [address] Social History Tobacco Use Types Packs/Day Years Used Date Smoking Tobacco: Former Smokeless Tobacco: Never Comments:quit 09/2011 Alcohol Use Standard Drinks/Week Comments No 0 (1 standard drink = 0.6 oz pur e alcohol) AUDIT-C Answer Date Recorded Q1: How often do you have a drink containing alc ohol? Never 01/07/2022 Average Number of Drinks Not on file 022 Frequency of Binge Drinking Not on file 07/2021 Sex and Gender Information Value Date Recorded Sex Assigned at Not on file Gender Identity Not on file Sexual Orientation Not on file documented as of this encounter Plan of Treatment Not on file documented as of this encounter Visit Diagnoses Not on filedocumented in this encounter Care Teams Underwater Welder Relationship Specialty Start Date End Date Gian He MD [address] [facility] [address] [place] [address] PCP - General 06/03/22 documented as of this encounter
--- OUTSIDE RECORDS SUMMARY | 2024-08-03 11:51 | XMS_ITS | Data Portability ---
Author Organization [facility] Address [address] [place] [address] Care Team Providers Care Golf Ball Molder Name Role Phone PEDRO PABLO CHAPARRO Primary Care Provider Assessment Encounter Date Assessment Date Assessment LastModified by Organization Details LastModified Time 04/17/2022 04/17/2022 Annual gynecological exam performed. Patient will come back in a year unless there are new symptoms. Not available 04/17/2022 16:21:18 04/21/2023 04/21/2023 Annual gynecological exam performed. Patient will come back in a year unless there are new symptoms. Not available 04/21/2023 14:35:40 05/10/2024 05/10/2024 Annual gynecological exam performed. Patient will come back in a year unless there are new symptoms. [email or web address] Not available 05/10/2024 12:43:46 Plan of Treatment Reminders Order Date Submit Date Provider Last Modified By Organization Details Last Modified Time Details Appointments None recorded. Lab CBC w/ auto diff 2022 023 [facility] (Lab), [address] , [place], [address], 3 07:54:07 CMP, serum or plasma 2022 023 [facility] (Lab), [address], [place], [address], 3 07:54:09 lipid panel, blood 2022 023 [facility] (Lab), [address], [place], [address], 3 07:54:08 TSH, serum or plasma 2022 023 [facility] (Lab), [address], [place], [address], 3 07:54:09 vitamin D, 25-hydroxy, total, serum 2022 023 [facility] (Lab), [address], [place], [address], 3 07:54:10 Referral None recorded. Procedures None recorded. Surgeries None recorded. Imaging None recorded. Medication Orders oxybutynin chloride ER 5 mg tablet,exte nded release 24 hr 2023 024 [id number], [address], [place], [id number], 4 13:10:30 Mounjaro 5 mg/0.5 mL subcutaneou s pen injector [email or web address] [place] [address] [id number], [address], [place], [id number], 3 17:56:57 Patient TargetsNo targets recorded. Patient InstructionsNo instructions recorded. Reason for Referral None Reported. Results Created Date Observation Date Name Description Value Unit Range Abnormal Flag Note LastModifiedBy Organization Detail LastModifiedTime 04/17/20 22 04/17/2022 IMAGE GUIDE D PAP AND HPV REGAR DLESS image guided Pap, HPV regardless of Pap result SEE RESULT S BELOW CASE REPOR T: Cytol ogy Gynec ologi aissatou Repor t Case: [id number] Autho carlos perez Provi rocío: Merary Olivia MD Colle cted: 04/17 1633 Order ing Locat ion: [place] Patho logy Recei chuck: 04/18 0144 First Scree n: Marilyn Meek, CT Rescr een: Ethan mendoza, Lynnette english, CT Speci men: Scree rose Pap - Image d, Cervi x STATE MENT OF ADEQU ACY: Satis facto ry for evalu ation FINAL DIAGN OSIS: Negat denisa for Intra epith elial Lesio n or Krzysztofsepideh louise (NIL) . Elect deysi horne nisa d by Ethan mendoza, Lynnette english, CT on 04/22 at 4:05 PM ----- ----- ----- ----- ----- ----- ----- ----- ----- ----- ----- ----- ----- ----- ----- ----- ----- ---- HPV RESUL TS: HPV mRNA E6/E7 : No HPV mRNA Detec brady NOTE: This high risk HPV mRNA assay detec ts fourt een high- risk HPV types (16, 18, 31, 33, 35, 39, 45, 51, 52, 56, 58, 59, 66, 68) witho ut diffe renti ation . COMME NT: Note: This speci men was revie wed by a Cytot echno logis t and/o r Patho logis t (as indic ated in this repor t) after evalu ation using the Thinp rep Imagi ng Syste m. CLINI AISSATOU INFOR MATIO N: Menst rual Statu s: Total Hyste recto my LMP (if appli cable ): Clini aissatou Histo ry/Pr eviou s Pap: Type of Neopl marek (if appli cable ): Signi fican t Clini aissatou Findi ngs: Other Histo ry: Hormo marija (if appli cable ): PAP EDUCA MARJAN L NOTE: The Pap Test is a scree rose test with an inher ent false negat denisa rate. Liqui d-bas ed sampl ing may decre ase, but will not elimi lizeth, false negat denisa resul ts. A negat denisa resul t does not precl ude the prese nce and/o r devel opmen t of disea se, since the prese nce of abnor mal cells in the sampl e depen ds on the locat ion of the lesio n and sampl ing techn ique. Gurvinder nued regul ar scree rose is the best metho d of cance r preve ntion . If repor brady cytol ogic findi ng do not corre late with physi aissatou and/o r histo rical findi ngs, furth er inves tigat ion is recom jericho d, as clini oskar warra nted. Not Available [facility] (Lab) [address], [place], [address], 04/22/2022 17:08:26 04/21/20 23 04/21/2023 CBC W/DIF F WBC 3.1 10'3/ uL 3.6-10 .2 low Not Available [facility] (Lab) [address], [place], [address], 04/22/2023 07:54:07 04/21/20 23 04/21/2023 CBC W/DIF F RBC 4.29 10'6/ uL (based on docume nted legal sex) 4.10-5 .30 Not Available [facility] (Lab) [address], [place], [address], 04/22/2023 07:54:07 04/21/20 23 04/21/2023 CBC W/DIF F HGB 12.7 g/dL (based on docume nted legal sex) 11.9-1 5.8 Not Available [facility] (Lab) [address], [place], [address], 04/22/2023 07:54:07 04/21/20 23 04/21/2023 CBC W/DIF F HCT 38.9 % (based on docume nted legal sex) 37.4-4 8.3 Not Available [facility] (Lab) [address], [place], [address], 04/22/2023 07:54:07 04/21/20 23 04/21/2023 CBC W/DIF F MCV 90.7 fL 82.0-9 9.0 Not Available [facility] (Lab) [address], [place], [address], 04/22/2023 07:54:07 04/21/20 23 04/21/2023 CBC W/DIF F MCH 29.6 pg 27.0-3 3.0 Not Available [facility] (Lab) [address], [place], [address], 04/22/2023 07:54:07 04/21/20 23 04/21/2023 CBC W/DIF F MCHC 32.6 g/dL 32.0-3 6.0 Not Available [facility] (Lab) [address], [place], [address], 04/22/2023 07:54:07 04/21/20 23 04/21/2023 CBC W/DIF F RDW 13.5 % 11.0-1 5.0 Not Available [facility] (Lab) [address], [place], [address], 04/22/2023 07:54:07 04/21/20 23 04/21/2023 CBC W/DIF F plt 220 10'3/ uL 150-45 0 Not Available [facility] (Lab) [address], [place], [address], 04/22/2023 07:54:07 04/21/20 23 04/21/2023 CBC W/DIF F MPV 11.2 fL 9.8-12 .7 Not Available [facility] (Lab) [address], [place], [address], 04/22/2023 07:54:07 04/21/20 23 04/21/2023 CBC W/DIF F NRBC's 0.0 % 0 Not Available [facility] (Lab) [address], [place], [address], 04/22/2023 07:54:07 04/21/20 23 04/21/2023 CBC W/DIF F absolute NRBCs 0.0 10'3/ uL 0 Not Available [facility] (Lab) [address], [place], [address], 04/22/2023 07:54:07 04/21/20 23 04/21/2023 CBC W/DIF F neutrophils 40.4 % 37.0-7 2.0 Not Available [facility] (Lab) [address], [place], [address], 04/22/2023 07:54:07 04/21/20 23 04/21/2023 CBC W/DIF F lymphocytes 49.8 % 16.0-4 8.0 high Not Available [facility] (Lab) [address], [place], [address], 04/22/2023 07:54:07 04/21/20 23 04/21/2023 CBC W/DIF F monocytes 8.6 % 4.0-14 .0 Not Available [facility] (Lab) [address], [place], [address], 04/22/2023 07:54:07 04/21/20 23 04/21/2023 CBC W/DIF F eosinophils 0.6 % 0.0-9. 0 Not Available [facility] (Lab) [address], [place], [address], 04/22/2023 07:54:07 04/21/20 23 04/21/2023 CBC W/DIF F basophils 0.6 % 0.0-2. 0 Not Available [facility] (Lab) [address] [place], [address], 04/22/2023 07:54:07 04/21/20 23 04/21/2023 CBC W/DIF F immature granulocytes 0.0 % no define d refere nce range Not Available [facility] (Lab) [address] [place], [address], 04/22/2023 07:54:07 04/21/20 23 04/21/2023 CBC W/DIF F absolute neutrophils 1.3 10'3/ uL 1.1-6. 0 Not Available [facility] (Lab) [address], [place], [address], 04/22/2023 07:54:07 04/21/20 23 04/21/2023 CBC W/DIF F absolute lymphocytes 1.6 10'3/ uL 0.7-3. 4 Not Available [facility] (Lab) [address], [place], [address], 04/22/2023 07:54:07 04/21/20 23 04/21/2023 CBC W/DIF F absolute monocytes 0.3 10'3/ uL 0.3-1. 0 Not Available [facility] (Lab) [address], [place], [address], 04/22/2023 07:54:07 04/21/20 23 04/21/2023 CBC W/DIF F absolute eosinophils 0.0 10'3/ uL 0.0-0. 6 Not Available [facility] (Lab) [address], [place], [address], 04/22/2023 07:54:07 04/21/20 23 04/21/2023 CBC W/DIF F absolute basophils 0.0 10'3/ uL 0.0-0. 1 Not Available [facility] (Lab) [address], [place], [address], 04/22/2023 07:54:07 04/21/20 23 04/21/2023 CBC W/DIF F absolute immature granulocytes 0.0 10'3/ uL 0.00-0 .10 04/22 3:26 AM: P indic ates parti al resul ts on a panel have been relea sed. Addit ional resul ts will follo w. 04/22 3:26 AM: This resul t has been final verif ied. No addit ional or lugo ed resul ts are expec brady. Not Available [facility] (Lab) [address], [place], [address], 04/22/2023 07:54:07 04/21/20 23 04/21/2023 LIPID PANEL ,AMA (LDL- CALC) total cholesterol 168 mg/dL 0-199 Not Available [facility] (Lab) [address] [place], [address], 04/22/2023 07:54:08 04/21/20 23 04/21/2023 LIPID PANEL ,AMA (LDL- CALC) triglyceride s 66 mg/dL 0.00-1 50.00 NCEP Refer ence Value s for Trigl yceri ambrose: Tisha l: <150 mg/dL Borde rline High: 150 - 199 mg/dL High: 200 - 499 mg/dL Very High: >/= 500 mg/dL Not Available [facility] (Lab) [address], [place], [address], 04/22/2023 07:54:08 04/21/20 23 04/21/2023 LIPID PANEL ,AMA (LDL- CALC) HDL cholesterol 49 mg/dL >40 Not Available [facility] (Lab) [address] [place], [address], 04/22/2023 07:54:08 04/21/20 23 04/21/2023 LIPID PANEL ,AMA (LDL- CALC) LDL cholesterol 104 mg/dL 0-99 high Cutof f value s recom jericho d by the Milka nal Chrissie stero l Educa tion Progr am: CRISTIANE ABLE: Chrissie stero l <200 mg/dL LDL <100 mg/dL BORDE RLINE : Chrissie stero l 200-2 39 mg/dL LDL 101-1 59 mg/dL HIGHE R RISK: Chrissie stero l >240 mg/dL LDL >160 mg/dL , HDL <40 mg/dL Not Available [facility] (Lab) [address] [place], [address], 04/22/2023 07:54:08 04/21/20 23 04/21/2023 LIPID PANEL ,AMA (LDL- CALC) non-HDL cholesterol 119 mg/dL no refere nce range A reaso nable goal for non-H DL chrissie stero l is one that is 30 mg/dL highe r than the LDL chrissie stero l goal. Not Available [facility] (Lab) [address], [place], [address], 04/22/2023 07:54:08 04/21/2004/21/2023 LIPID PANEL ,AMA (LDL- CALC) chol/HDL ratio 3.4 . 0.0-5. 0 On September 30, 2022, [facility] labor atori cher lugo ed the equat ion for calcu latin g estim ated low-d ensit y lipop rotei n-cho leste rol (LDL- C) from the Fried morena equat ion to the Kassidy tramaine/Ad daely equat ion. This new equat ion is only valid for lipid panel s with trigl yceri ambrose < 400 mg/dL . Tyreli es have demon jovita ed that this new equat ion will impro ve the accur acy of LDL-C , espec ially in scena johnson when LDL-C familia ntrat ions are relat ively low (< 100 mg/dL ), trigl yceri ambrose are eleva brady, or patie nt is non-f astin g. Refer ences : - Kassidy redd, Dajuan Marcos, Marcio Loving , [facility] glynn dougherty, Cricket Navas, Cricket vann, [facility] , and Javier Sy . 2013. Comp ariso n of a Novel Metho d vs the Fried morena Equat ion for Estim ating Low-D ensit y Lipop rotei n Chrissie stero l Level s from the Stand carlie Lipid Profi mercedes. CHRISTIANE: The Journ al of the Ameri can Medic al Assoc iatio n 310 (19): 2060- . - Martha levy V, Paula Damon, Tommy Harper, Neftali Frederick, Julia nathan R, Augie levy E, Jennifer escoto RS, Sy SR, Kassidy n SS. Fast ing Versu s Nonfa sting and Low-D ensit y Lipop rotei n Chrissie stero l Accur acy. Circu latlenard n. 2017Jun 09;137 (1):1 0-19. Not Available [facility] (Lab) [address], [place], [address], 04/22/2023 07:54:08 04/21/20 23 04/21/2023 CMP(C OMPRE HENSI VE METAB OLIC PANEL ) sodium 142 mmol/ L 133-14 6 Not Available [facility] (Lab) [address], [place], [address], 04/22/2023 07:54:09 04/21/20 23 04/21/2023 CMP(C OMPRE HENSI VE METAB OLIC PANEL ) potassium 3.8 mmol/ L 3.5-5. 1 Not Available [facility] (Lab) [address], [place], [address], 04/22/2023 07:54:09 04/21/20 23 04/21/2023 CMP(C OMPRE HENSI VE METAB OLIC PANEL ) chloride 107 mmol/ L 98-107 Not Available [facility] (Lab) [address], [place], [address], 04/22/2023 07:54:09 04/21/20 23 04/21/2023 CMP(C OMPRE HENSI VE METAB OLIC PANEL ) carbon dioxide 32 mmol/ L 21-31 high Not Available [facility] (Lab) [address], [place], [address], 04/22/2023 07:54:09 04/21/20 23 04/21/2023 CMP(C OMPRE HENSI VE METAB OLIC PANEL ) anion gap 3 mmol/ L 4-13 low Not Available [facility] (Lab) [address] [place], [address], 04/22/2023 07:54:09 04/21/20 23 04/21/2023 CMP(C OMPRE HENSI VE METAB OLIC PANEL ) blood urea nitrogen 11 mg/dL 7-25 Not Available [facility] (Lab) [address], [place], [address], 04/22/2023 07:54:09 04/21/20 23 04/21/2023 CMP(C OMPRE HENSI VE METAB OLIC PANEL ) creatinine 0.93 mg/dL 0.60-1 .30 Not Available [facility] (Lab) [address], [place], [address], 04/22/2023 07:54:09 04/21/20 23 04/21/2023 CMP(C OMPRE HENSI VE METAB OLIC PANEL ) egfrcr (CKD-epi 2020) 78 mL/mi n/1.7 3_m2 >=60 Not Available [facility] (Lab) [address], [place], [address], 04/22/2023 07:54:09 04/21/20 23 04/21/2023 CMP(C OMPRE HENSI VE METAB OLIC PANEL ) calcium 9.5 mg/dL 8.3-10 .5 Not Available [facility] (Lab) [address], [place], [address], 04/22/2023 07:54:09 04/21/20 23 04/21/2023 CMP(C OMPRE HENSI VE METAB OLIC PANEL ) glucose 85 mg/dL 70-100 Not Available [facility] (Lab) [address], [place], [address], 04/22/2023 07:54:09 04/21/20 23 04/21/2023 CMP(C OMPRE HENSI VE METAB OLIC PANEL ) protein, total 6.3 g/dL 6.4-8. 3 low Not Available [facility] (Lab) [address], [place], [address], 04/22/2023 07:54:09 04/21/20 23 04/21/2023 CMP(C OMPRE HENSI VE METAB OLIC PANEL ) albumin 4.0 g/dL 3.5-5. 0 Not Available [facility] (Lab) [address], [place], [address], 04/22/2023 07:54:09 04/21/20 23 04/21/2023 CMP(C OMPRE HENSI VE METAB OLIC PANEL ) ALT 16 units /L 9-43 Not Available [facility] (Lab) [address], [place], [address], 04/22/2023 07:54:09 04/21/20 23 04/21/2023 CMP(C OMPRE HENSI VE METAB OLIC PANEL ) alkaline phosphatase 77 units /L 34-104 Not Available [facility] (Lab) [address], [place], [address], 04/22/2023 07:54:09 04/21/20 23 04/21/2023 CMP(C OMPRE HENSI VE METAB OLIC PANEL ) AST 18 units /L 13-39 Not Available [facility] (Lab) [address], [place], [address], 04/22/2023 07:54:09 04/21/20 23 04/21/2023 CMP(C OMPRE HENSI VE METAB OLIC PANEL ) bilirubin, total 0.4 mg/dL 0.2-1. 2 Not Available [facility] (Lab) [address], [place], [address], 04/22/2023 07:54:09 04/21/20 23 04/21/2023 TSH, REFLE X FREE T4 TSH 0.86 uIU/m L 0.30-5 .33 Not Available [facility] (Lab) [address], [place], [address], 04/22/2023 07:54:09 04/21/20 23 04/21/2023 VITAM IN D, 25-OH (TOTA L D2/D3 ) vitamin D, 25-hydroxy, total 21.4 NG/mL 30.0-1 00.0 low Sugge stive of Defic iency : <20 ng/mL Sugge stive of Insuf ficie ncy: 20-29 ng/mL Sugge stive of Suffi cienc y: 30-10 0 ng/mL Sugge stive of Toxic ity: >150 ng/mL Not Available [facility] (Lab) [address], [place], [address], 04/22/2023 07:54:10 04/21/20 23 04/21/2023 IMAGE GUIDE D PAP AND HPV REGAR DLESS image guided Pap, HPV regardless of Pap result SEE RESULT S BELOW CASE REPOR T: Cytol ogy Gynec ologi aissatou Repor t Case: [id number] Autho rife g Provi rocío: Merary Olivia MD Colle cted: 04/21 1702 Order ing Locat ion: [place] Patho logy Recei chuck: 04/22 0556 First Scree n: Bridget Ford Speci men: Scree rose Pap - Image d, Vagin a STATE MENT OF ADEQU ACY: Satis facto ry for evalu ation FINAL DIAGN OSIS: Negat denisa for Intra epith elial Lesio n or Katherine gil (NIL) . Elect deysi paula d by Bridget Ford ica on 04/23 at 3:02 PM ----- ----- ----- ----- ----- ----- ----- ----- ----- ----- ----- ----- ----- ----- ----- ----- ----- ---- HPV RESUL TS: HPV mRNA E6/E7 : No HPV mRNA Detec brady NOTE: This high risk HPV mRNA assay detec ts fourt een high- risk HPV types (16, 18, 31, 33, 35, 39, 45, 51, 52, 56, 58, 59, 66, 68) witho ut diffe renti ation . COMME NT: This speci men was revie wed by a Cytot echno logis t and/o r Patho logis t (as indic ated in this repor t) after evalu ation using the Thinp rep Imagi ng Syste m. CLINI AISSATOU INFOR MATIO N: Menst rual Statu s: LMP (if appli cable ): Clini aissatou Histo ry/Pr eviou s Pap: Type of Neopl marek (if appli cable ): Signi fican t Clini aissatou Findi ngs: Other Histo ry: Hormo marija (if appli cable ): PAP EDUCA MARJAN L NOTE: The Pap Test is a scree rose test with an inher ent false negat denisa rate. Liqui d-bas ed sampl ing may decre ase, but will not elimi lizeth, false negat denisa resul ts. A negat denisa resul t does not precl ude the prese nce and/o r devel opmen t of disea se, since the prese nce of abnor mal cells in the sampl e depen ds on the locat ion of the lesio n and sampl ing techn ique. Gurvinder nued regul ar scree rose is the best metho d of cance r preve ntion . If repor brady cytol ogic findi ng do not corre late with physi aissatou and/o r histo rical findi ngs, furth er inves tigat ion is recom jericho d, as clini oskar self nted. Not Available [facility] (Lab) [address], [place], [address], 04/23/2023 16:05:50 05/10/20 24 05/10/2024 IMAGE GUIDE D PAP AND HPV REGAR DLESS image guided Pap, HPV regardless of Pap result SEE RESULT S BELOW CASE REPOR T: Cytol ogy Gynec ologi aissatou Repor t Case: [id number] Autho carlos perez Provi rocío: Merary Olivia MD Colle cted: 05/10 1357 Order ing Locat ion: [place] Patho logy Recei chuck: 05/11 0154 First Scree n: Daphne salas, Abhilash maki, CT Rescr een: Jacqueline Sy, CT Speci men: Kelsie rose Pap - Image d, Cervi x STATE MENT OF ADEQU ACY: Satis facto ry for evalu ation Trans forma tion zone compo nent absen t The absen ce of an endoc ervic al compo nent was confi rmed by an addit ional scree ner. ----- ----- ----- ----- ----- ----- ----- ----- ----- ----- ----- ----- ----- ----- ----- ----- ----- ---- FINAL DIAGN OSIS: Negat denisa for Intra epith elial Lesio n or Katherine gil (NIL) . Elect deysi horne nisa d by Jacqueline Sy, CT on 05/19 at 8:58 AM ----- ----- ----- ----- ----- ----- ----- ----- ----- ----- ----- ----- ----- ----- ----- ----- ----- ---- HPV RESUL TS: HPV mRNA E6/E7 : No HPV mRNA Detec brady NOTE: This high risk HPV mRNA assay detec ts fourt een high- risk HPV types (16, 18, 31, 33, 35, 39, 45, 51, 52, 56, 58, 59, 66, 68) witho ut diffe renti ation . COMME NT: This speci men was revie wed by a Cytot echno logis t and/o r Patho logis t (as indic ated in this repor t) after evalu ation using the Thinp rep Imagi ng Syste m. CLINI AISSATOU INFOR MATIO N: Menst rual Statu s: LMP (if appli cable ): Clini aissatou Histo ry/Pr eviou s Pap: Type of Neopl marek (if appli cable ): Signi fican t Clini aissatou Findi ngs: Other Histo ry: Hormo marija (if appli cable ): PAP EDUCA MARJAN L NOTE: The Pap Test is a scree rose test with an inher ent false negat denisa rate. Liqui d-bas ed sampl ing may decre ase, but will not elimi lizeth, false negat denisa resul ts. A negat denisa resul t does not precl ude the prese nce and/o r devel opmen t of disea se, since the prese nce of abnor mal cells in the sampl e depen ds on the locat ion of the lesio n and sampl ing techn ique. Gurvinder nued regul ar scree rose is the best metho d of cance r preve ntion . If repor brady cytol ogic findi ng do not corre late with physi aissatou and/o r histo rical findi ngs, furth er inves tigat ion is recom jericho d, as clini oskar warra nted. Not Available [facility] (Lab) [address], [place], [address], 05/19/2024 10:03:02 06/21/19 25 06/21/2024 VITAM IN D, 25-OH (TOTA L D2/D3 ) vitamin D, 25-hydroxy, total 26.7 NG/mL 30.0-1 00.0 low Sugge stive of Defic iency : <20 ng/mL Sugge stive of Insuf ficie ncy: 20-29 ng/mL Sugge stive of Suffi cienc y: 30-10 0 ng/mL Sugge stive of Toxic ity: >150 ng/mL Not Available [facility] (Lab) [address], [place], [address], 06/22/2024 08:43:52 07/12/19 25 07/12/2024 CBC W/DIF F WBC 4.6 10'3/ uL 3.5-10 .5 Not Available [facility] (Lab) [address], [place], [address], 07/13/2024 05:14:22 07/12/1907/12/2024 CBC W/DIF F RBC 4.53 10'6/ uL (based on docume nted legal sex) 3.80-5 .20 Not Available [facility] (Lab) [address], [place], [address], 07/13/2024 05:14:22 07/12/1907/12/2024 CBC W/DIF F HGB 13.6 g/dL (based on docume nted legal sex) 11.6-1 5.4 Not Available [facility] (Lab) [address], [place], [address], 07/13/2024 05:14:22 07/12/1907/12/2024 CBC W/DIF F HCT 42.1 % (based on docume nted legal sex) 34.0-4 5.0 Not Available [facility] (Lab) [address], [place], [address], 07/13/2024 05:14:22 07/12/1907/12/2024 CBC W/DIF F MCV 92.9 fL 80.0-9 9.0 Not Available [facility] (Lab) [address], [place], [address], 07/13/2024 05:14:22 07/12/1907/12/2024 CBC W/DIF F MCH 30.0 pg 27.0-3 4.0 Not Available [facility] (Lab) [address], [place], [address], 07/13/2024 05:14:22 07/12/1907/12/2024 CBC W/DIF F MCHC 32.3 g/dL 32.0-3 5.5 Not Available [facility] (Lab) [address], [place], [address], 07/13/2024 05:14:22 07/12/192025 CBC W/DIF F RDW 13.6 % 11.0-1 5.0 Not Available [facility] (Lab) [address] [facility], [place], [address], 07/13/2024 05:14:22 07/12/19 25 07/12/2024 CBC W/DIF F plt 221 10'3/ uL 150-40 0 Not Available [facility] (Lab) [address] [facility], [place], [address], 07/13/2024 05:14:22 07/12/19 25 07/12/2024 CBC W/DIF F MPV 11.5 fL 8.8-12 .1 Not Available [facility] (Lab) [address] [facility], [place], [address], 07/13/2024 05:14:22 07/12/19 25 07/12/2024 CBC W/DIF F neutrophils 36.3 % 34.0-7 3.0 Not Available [facility] (Lab) [address] [facility], [place], [address], 07/13/2024 05:14:22 07/12/19 25 07/12/2024 CBC W/DIF F lymphocytes 54.5 % 15.0-5 0.0 high Not Available [facility] (Lab) [address] [facility], [place], [address], 07/13/2024 05:14:22 07/12/19 25 07/12/2024 CBC W/DIF F monocytes 7.7 % 1.0-15 .0 Not Available [facility] (Lab) [address] [facility], [place], [address], 07/13/2024 05:14:22 07/12/19 25 07/12/2024 CBC W/DIF F eosinophils 0.9 % 0.0-8. 0 Not Available [facility] (Lab) [address] [place], [address], 07/13/2024 05:14:22 02/04/20 25 07/12/2024 CBC W/DIF F basophils 0.4 % 0.0-2. 0 Not Available [facility] (Lab) [address], [place], [address], 07/13/2024 05:14:22 07/12/19 25 07/12/2024 CBC W/DIF F immature granulocytes 0.2 % no define d refere nce range Immat ure Granu locyt es (IG) repre sents autom ated enume ratio n of Metam yeloc ytes, Myelo cytes and Promy elocy [place] when IG is < 5%. Blast s are not inclu ded in IG and repor brady separ ately if prese nt. Not Available [facility] (Lab) [address], [place], [address], 07/13/2024 05:14:22 07/12/1907/12/2024 CBC W/DIF F absolute neutrophils 1.7 10'3/ uL 1.5-8. 0 Not Available [facility] (Lab) [address], [place], [address], 07/13/2024 05:14:22 07/12/19 25 07/12/2024 CBC W/DIF F absolute lymphocytes 2.5 10'3/ uL 1.0-4. 0 Not Available [facility] (Lab) [address], [place], [address], 07/13/2024 05:14:22 07/12/1907/12/2024 CBC W/DIF F absolute monocytes 0.4 10'3/ uL 0.2-1. 0 Not Available [facility] (Lab) [address] [place], [address], 07/13/2024 05:14:22 07/12/19 25 07/12/2024 CBC W/DIF F absolute eosinophils 0.0 10'3/ uL 0.0-0. 6 Not Available [facility] (Lab) [address], [place], [address], 07/13/2024 05:14:22 07/12/19 25 07/12/2024 CBC W/DIF F absolute basophils 0.0 10'3/ uL 0.0-0. 3 Not Available [facility] (Lab) [address], [place], [address], 07/13/2024 05:14:22 07/12/19 25 07/12/2024 CBC W/DIF F absolute immature granulocytes 0.0 10'3/ uL 0.00-0 .10 Refer ence range s for nonbi nary/ inter sex or unspe cifie d gende r patie nts have not been estab lishe d. Joaquín e refer to the graeme wing table for range s estab lishe d for cisge nder patie nts and evalu ate in the clini aissatou rosie xt of the indiv idual patie nt: https :[email or web address] [email or web address] book. nm.or g/Gen derX Not Available [facility] (Lab) [address], [place], [address], 07/13/2024 05:14:22 07/12/19 25 07/12/2024 HEMOG LOBIN A1C hemoglobin A1C 5.7 % 4.0-5. 6 high The Ameri can Diabe [place] Assoc iatio n recom mends that a prima ry goal of thera py mary d be a HBA1C of < 7% and that physi cians shoul d reeva luate the treat ment regim en in patie nts with HBA1C value s consi stent ly > 8%. <5.7% Tisha l 5.7 - 6.4% Incre ased risk for diabe [place]ria >=6.5 % Diagn ostic of diabe [place]ria <7.0% Goal of thera py >8.0% Actio n sugge sted Not Available [facility] (Lab) [address], [place], [address], 07/13/2024 05:14:22 07/12/19 25 07/12/2024 CMP(C OMPRE HENSI VE METAB OLIC PANEL ) sodium 144 mmol/ L 133-14 6 Not Available [facility] (Lab) [address] [facility], [place], [address], 07/13/2024 05:14:23 07/12/19 25 07/12/2024 CMP(C OMPRE HENSI VE METAB OLIC PANEL ) potassium 3.9 mmol/ L 3.5-5. 1 Not Available [facility] (Lab) [address] [facility], [place], [address], 07/13/2024 05:14:23 07/12/19 25 07/12/2024 CMP(C OMPRE HENSI VE METAB OLIC PANEL ) chloride 107 mmol/ L 98-107 Not Available [facility] (Lab) [address] [facility], [place], [address], 07/13/2024 05:14:23 07/12/19 25 07/12/2024 CMP(C OMPRE HENSI VE METAB OLIC PANEL ) carbon dioxide 31 mmol/ L 21-31 Not Available [facility] (Lab) [address] [facility], [place], [address], 07/13/2024 05:14:23 07/12/19 25 07/12/2024 CMP(C OMPRE HENSI VE METAB OLIC PANEL ) anion gap 6 mmol/ L 4-13 Not Available [facility] (Lab) [address] [place], [address], 07/13/2024 05:14:23 07/12/19 25 07/12/2024 CMP(C OMPRE HENSI VE METAB OLIC PANEL ) blood urea nitrogen 11 mg/dL 7-25 Not Available [facility] (Lab) [address] [place], [address], 07/13/2024 05:14:23 07/12/19 25 07/12/2024 CMP(C OMPRE HENSI VE METAB OLIC PANEL ) creatinine 0.91 mg/dL 0.60-1 .30 Not Available [facility] (Lab) [address] [place], [address], 07/13/2024 05:14:23 07/12/19 25 07/12/2024 CMP(C OMPRE HENSI VE METAB OLIC PANEL ) egfrcr (CKD-epi 2020) 80 mL/mi n/1.7 3_m2 >=60 Not Available [facility] (Lab) [address] [facility], [place], [address], 07/13/2024 05:14:23 07/12/19 25 07/12/2024 CMP(C OMPRE HENSI VE METAB OLIC PANEL ) calcium 9.4 mg/dL 8.3-10 .5 Not Available [facility] (Lab) [address] [facility], [place], [address], 07/13/2024 05:14:23 07/12/19 25 07/12/2024 CMP(C OMPRE HENSI VE METAB OLIC PANEL ) glucose 88 mg/dL 70-100 Not Available [facility] (Lab) [address] [facility], [place], [address], 07/13/2024 05:14:23 07/12/19 25 07/12/2024 CMP(C OMPRE HENSI VE METAB OLIC PANEL ) protein, total 6.8 g/dL 6.4-8. 3 Not Available [facility] (Lab) [address] [place], [address], 07/13/2024 05:14:23 07/12/1907/12/2024 CMP(C OMPRE HENSI VE METAB OLIC PANEL ) albumin 4.2 g/dL 3.5-5. 0 Not Available [facility] (Lab) [address] [place], [address], 07/13/2024 05:14:23 07/12/19 25 07/12/2024 CMP(C OMPRE HENSI VE METAB OLIC PANEL ) ALT 16 units /L 9-43 Not Available [facility] (Lab) [address] [place], [address], 07/13/2024 05:14:23 07/12/19 25 07/12/2024 CMP(C OMPRE HENSI VE METAB OLIC PANEL ) alkaline phosphatase 78 units /L 34-104 Not Available [facility] (Lab) [address] [facility], [place], [address], 07/13/2024 05:14:23 07/12/19 25 07/12/2024 CMP(C OMPRE HENSI VE METAB OLIC PANEL ) AST 20 units /L 13-39 Not Available [facility] (Lab) [address] [facility], [place], [address], 07/13/2024 05:14:23 07/12/19 25 07/12/2024 CMP(C OMPRE HENSI VE METAB OLIC PANEL ) bilirubin, total 0.5 mg/dL 0.2-1. 2 Not Available [facility] (Lab) [address] [place], [address], 07/13/2024 05:14:23 07/12/19 25 07/12/2024 LIPID PANEL ,AMA (LDL- CALC) total cholesterol 177 mg/dL 0-199 Not Available [facility] (Lab) [address] [place], [address], 07/13/2024 05:14:23 07/12/19 25 07/12/2024 LIPID PANEL ,AMA (LDL- CALC) triglyceride s 62 mg/dL 0-150 NCEP Refer ence Value s for Trigl yceri ambrose: Tisha l: <150 mg/dL Borde rline High: 150 - 199 mg/dL High: 200 - 499 mg/dL Very High: >/= 500 mg/dL Not Available [facility] (Lab) [address] [place], [address], 07/13/2024 05:14:23 07/12/19 25 07/12/2024 LIPID PANEL ,AMA (LDL- CALC) HDL cholesterol 57 mg/dL >40 Not Available [facility] (Lab) [address] [facility], [place], [address], 07/13/2024 05:14:23 07/12/19 25 07/12/2024 LIPID PANEL ,AMA (LDL- CALC) LDL cholesterol 106 mg/dL 0-99 high Cutof f value s recom jericho d by the Natio nal Chrissie stero l Educa tion Progr am: CRISTIANE ABLE: Chrissie stero l <200 mg/dL LDL <100 mg/dL BORDE RLINE : Chrissie stero l 200-2 39 mg/dL LDL 101-1 59 mg/dL HIGHE R RISK: Chrissie stero l >240 mg/dL LDL >160 mg/dL , HDL <40 mg/dL Not Available [facility] (Lab) [address] [facility], [place], [address], 07/13/2024 05:14:23 07/12/19 25 07/12/2024 LIPID PANEL ,AMA (LDL- CALC) non-HDL cholesterol 120 mg/dL no refere nce range A reaso nable goal for non-H DL chrissie stero l is one that is 30 mg/dL highe r than the LDL chrissie stero l goal. Not Available [facility] (Lab) [address] [facility], [place], [address], 07/13/2024 05:14:23 07/12/19 25 07/12/2024 LIPID PANEL ,AMA (LDL- CALC) chol/HDL ratio 3.1 . 0.0-5. 0 On September 30, 2022, [facility] labor atori es brittney ed the equat ion for calcu latin g estim ated low-d ensit y lipop rotei n-cho leste rol (LDL- C) from the Gris berg equat ion to the Kassidy redd/Ad daley equat ion. This new equat ion is only valid for lipid panel s with trigl yceri ambrose < 400 mg/dL . Tyreli es corazon demon strat ed that this new equat ion will impro ve the accur acy of LDL-C , espec ially in scena johnson when LDL-C familia ntrat ions are relat ively low (< 100 mg/dL ), trigl yceri ambrose are eleva brady, or patie nt is non-f astin g. Refer ences : - Kassidy redd, Dajuan Marcos, Marcio Loving , Abhilash dougherty, Cricket Navas, Cricket vann, [facility] , and Javier Sy . 2013. Comp ariso n of a Novel Metho d vs the Fried morena Equat ion for Estim ating Low-D ensit y Lipop rotei n Chrissie stero l Level s from the Stand carlie Lipid Profi le. CHRISTIANE: The Journ al of the Ameri can Medic al Assoc iatio n 310 (61): 2060- . - Martha levy V, Paula J, Tommy ar A, Neftali M, Julia nathan R, Augie levy E, Jennifer [facility] RS, Yossi SR, Kassidy redd SS. Fast ing Versu s Nonfa sting and Low-D ensit y Lipop rotei n Chrissie stero l Accur acy. Circu latio n. 2017Jun 09;137 (1):1 0-19. Not Available [facility] (Lab) [address] [facility], [place], [address], 07/13/2024 05:14:23 07/12/19 25 07/12/2024 TSH, REFLE X FREE T4 TSH 0.84 uIU/m L 0.30-5 .33 Not Available [facility] (Lab) [address] [place], [address], 07/13/2024 05:14:24 07/12/19 25 07/12/2024 PROLA CTIN prolactin, total 5.54 NG/mL 4.79-2 3.30 This assay was perfo rmed using [employer] ratio n reage nts and test kits. Value s obtai deed[place] with other assay metho ds or kits canno t be used inter lugo eably . Not Available [facility] (Lab) [address] [facility], [place], [address], 07/13/2024 05:14:24 07/12/19 25 07/12/2024 FSH, LH, ESTRA DIOL estradiol 16.2 pg/mL This assay was perfo rmed using [employer] n reage nts and test kits. Value s obtai deedee with other assay metho ds or kits canno t be used [facility] . Femal e Estra diol Range s: Folli cular phase 12.4- 233 pg/mL Ovula tion phase 41.0- 398 pg/mL Lutea l phase 22.3- 341 pg/mL Postm enopa usal <5-13 8 pg/mL Healt hy Pregn ant Women 1st Trime ster 154-3 243 pg/mL 2nd Trime ster 1561- 92690 pg/mL 3rd Trime ster 8525- >3000 0 pg/mL Not Available [facility] (Lab) [address] [facility], [place], [address], 07/13/2024 05:14:25 07/12/19 25 07/12/2024 FSH, LH, ESTRA DIOL FSH 55.6 mIU/m L This assay was perfo rmed using [employer] n reage nts and test kits. Value s obtai deedee with other assay metho ds or kits canno t be used inter [facility] . Femal es Folli cular : 3.5-1 2.5 mIU/m L Ovula tion: 4.7-2 1.5 mIU/m L Lutea l: 1.7-7 .7 mIU/m L Postm enopa use: 25.8- 134.8 mIU/m L Not Available [facility] (Lab) [address] [facility], [place], [address], 07/13/2024 05:14:25 07/12/19 25 07/12/2024 FSH, LH, ESTRA DIOL LH 35.8 mIU/m L This assay was perfo rmed using [employer] n reage nts and test kits. Value s obtai deedee with other assay metho ds or kits canno t be used inter lugo eably . Femal es Mid-F ollic ular: 2.4-1 2.6 mIU/m L Mid-C ycle: 14.0- 95.6 mIU/m L Mid-L uteal : 1.0-1 1.4 mIU/m L Postm enopa use: 7.7-5 8.5 mIU/m L Not Available [facility] (Lab) [address] [facility], [place], [address], 07/13/2024 05:14:25 07/12/19 25 07/12/2024 TESTO STERO NE, TOTAL testosterone , total 32 NG/dL 0-75 Not Available [facility] (Lab) [address] [facility] [address], [place], [address], 07/13/2024 05:14:25 Result Notes None recorded. Problems Name Problem SNOMED Code Status Onset Date Resolution Date Notes Provider Name and Address Organization Details Recorded Time Hypercholest erolemia 90840023 Active 2021 Sean Olivia MD [address], [place], [address], [facility] 2 16:28:50 Deep venous thrombosis 856748079 Active 2021 Sean Olivia MD [address], [place], [address], [facility] 2 18:03:58 Problem Notes None recorded. Procedures Surgical History Date Name Laterality Status Provider Name and Address Organization Details Recorded Time 12/07/19 24 Date of Last Mammogram completed April Molina [facility] 05/10/2024 12:46:46 04/21/20 23 Date of Last Pap Smear completed Carmina Stinson [facility] 04/21/2023 17:56:24 06/14/19 22 lumpectomy of right breast completed April Molina [facility] 05/10/2024 12:47:42 08/15/19 21 TOTAL HYSTERECTOMY, LAPAROSCOPIC, WITH BILATERAL SALPINGECTOMY (SURG) completed Orquidea Eddy [facility] 08/17/2020 10:09:18 06/25/19 21 Endometrial Biopsy completed Eda Belcher MD [address], [place], [address], [place] [facility] 06/26/2020 10:27:20 07/26/19 08 Tubal Ligation completed Barbara Poe [facility] 02/25/2022 16:05:58 Imaging Results None recorded. Procedure Notes None recorded. Medical Equipment None Reported. Allergies Allergen ID Allergen Name Allergen Category Reaction Reaction Severity Criticality Documentation Date Start Date Code Code System Note Provider Name and Address Organization Details Recorded Time Betadine medicatio n rash Not available high 04/08/2022 20074 0 RxNorm Carmina parrish [facility] 18:09:59 Medications Name Sig Start Date Stop Date Status Note LastModified by Organization Details LastModified Time diph12.5mgl ido2%antaci d 111 SWISH OR SWALLOW 5ML BY MOUTH THREE TIMES DAILY NEEDED FOR PAIN 05/10 completed Not Available Not Available Not Available cyclobenzap rine 10 mg tablet TAKE 1 TABLET BY MOUTH EVERY 8 HOURS NEEDED 08/23 completed Not Available Not Available Not Available amoxicillin 500 mg capsule TAKE 1 CAPSULE BY MOUTH THREE TIMES DAILY FOR 10 DAYS 05/10 completed Not Available Not Available Not Available doxycycline hyclate 100 mg capsule TAKE 1 CAPSULE BY MOUTH EVERY 12 HOURS FOR 5 DAYS active Not Available Not Available No t Available azithromyci n 250 mg tablet TAKE 2 TABLETS BY MOUTH ONE TIME TODAY AND THEN 1 TABLET BY MOUTH DAILY FOR 4 DAYS 05/10 completed Not Available Not Available Not Available ibuprofen 800 mg tablet Take 1 tablet 3 times a day by oral route. 04/15 completed Not Available Not Available Not Available Lidocaine Viscous 2 % mucosal solution 05/10 completed Not Available Not Available Not Available hydrocodone 5 mg-acetamin ophen 325 mg tablet TAKE 1 TO 2 TABLETS BY MOUTH EVERY 4 HOURS NEEDED FOR PAIN 05/10 completed Not Available Not Available Not Available ondansetron HCl 8 mg tablet 05/10 completed Not Available Not Available Not Available phentermine 15 mg capsule TAKE 1 CAPSULE BY MOUTH EVERY DAY 02/25 completed Not Available Not Available Not Available topiramate 25 mg tablet TAKE 1 TABLET BY MOUTH EVERY DAY 02/25 completed Not Available Not Available Not Available phentermine 37.5 mg tablet 06/11 completed Not Available Not Available Not Available ciprofloxac in 500 mg tablet TAKE 1 TABLET BY MOUTH EVERY 12 HOURS 02/25 completed Not Available Not Available Not Available triamcinolo ne acetonide 0.1 % topical cream APPLY TOPICALLY TO THE AFFECTED AREA TWICE DAILY FOR 7 DAYS 05/10 completed Not Available Not Available Not Available phentermine 30 mg capsule 05/10 completed Not Available Not Available Not Available lidocaine-p rilocaine 2.5 %-2.5 % topical cream 05/10 completed Not Available Not Available Not Available prednisolon e acetate 1 % eye drops,suspe nsion SEE ATTACHED DIRECTION S 05/10 completed Not Available Not Available Not Available estradiol 1 mg tablet TAKE 1 TABLET BY MOUTH EVERY DAY 02/25 completed Not Available Not Available Not Available cephalexin 500 mg capsule 04/21 completed Not Available Not Available Not Available erythromyci n 5 mg/gram (0.5 %) eye ointment APPLY SMALL AMOUNT TO BOTH EYELIDS TWICE DAILY FOR 1 WEEK 05/10 completed Not Available Not Available Not Available tobramycin 0.3 % eye drops 05/10 completed Not Available Not Available Not Available nystatin 100,000 unit/gram topical cream APPLY TOPICALLY TO THE AFFECTED AREA TWICE DAILY 05/10 completed Not Available Not Available Not Available dexamethaso ne 4 mg tablet 05/10 completed Not Available Not Available Not Available ibuprofen 400 mg tablet 05/10 completed Not Available Not Available Not Available oxybutynin chloride ER 5 mg tablet,exte nded release 24 hr Take 1 tablet every day by oral route. active Not Available Not Available No t Available gabapentin 300 mg capsule 05/10 completed Not Available Not Available Not Available hydrochloro thiazide 25 mg tablet TAKE 1 TABLET BY MOUTH DAILY 05/10 completed Not Available Not Available Not Available ergocalcife rol (vitamin D2) 1,250 mcg (50,000 unit) capsule TAKE 1 CAPSULE BY MOUTH EVERY WEEK WITH MEALS active Not Available Not Available No t Available lorazepam 1 mg tablet 05/10 completed Not Available Not Available Not Available methylpredn isolone 4 mg tablets in a dose pack FOLLOW PACKAGE DIRECTION S 08/23 completed Not Available Not Available Not Available albuterol sulfate HFA 90 mcg/actuati on aerosol inhaler active Not Available Not Available Not Available SSD 1 % topical cream APPLY TOPICALLY TO THE AFFECTED AREA TWICE DAILY 05/10 completed Not Available Not Available Not Available ondansetron 4 mg disintegrat ing tablet 05/10 completed Not Available Not Available Not Available topiramate 100 mg tablet Take 1 tablet twice a day by oral route. 04/21 completed Not Available Not Available Not Available fluticasone propionate 50 mcg/actuati on nasal spray,suspe nsion SHAKE LIQUID AND USE 1 SPRAY IN EACH NOSTRIL TWICE DAILY 05/10 completed Not Available Not Available Not Available phentermine 37.5 mg capsule 06/11 completed Not Available Not Available Not Available naproxen 500 mg tablet TAKE 1 TABLET BY MOUTH TWICE DAILY NEEDED FOR PAIN 05/10 completed Not Available Not Available Not Available enoxaparin 30 mg/0.3 mL subcutaneou s syringe INJECT 30MG SUBCUTANE OUSLY TWICE DAILY FOR 7 DAYS 04/17 completed Not Available Not Available Not Available enoxaparin 60 mg/0.6 mL subcutaneou s syringe INJECT 60 MG SUBCUTANE OUSLY TWICE A DAY FOR 7 DAYS 04/17 completed Not Available Not Available Not Available cyclobenzap rine 5 mg tablet TAKE 1 TABLET BY MOUTH THREE TIMES DAILY NEEDED FOR MUSCLE SPASM 05/10 completed Not Available Not Available Not Available bupropion HCl XL 150 mg 24 hr tablet, extended release TK 1 T PO QD 06/11 completed Not Available Not Available Not Available topiramate 50 mg tablet Take 1 tablet twice a day by oral route. 04/17 completed Not Available Not Available Not Available phentermine 06/11 completed Not Available Not Available Not Available apple cider vinegar 02/15 /2022 completed Not Available Not Available Not Available Vitamins and Minerals 08/23 completed Not Available Not Available Not Available Elderberry 05/10 completed Not Available Not Available Not Available cholecalcif sohail (vitamin D3) 50 mcg (2,000 unit) capsule TAKE 1 CAPSULE BY MOUTH EVERY DAY 05/10 completed Not Available Not Available Not Available Saxenda 3 mg/0.5 mL (18 mg/3 mL) subcutaneou s pen injector Inject 3 mg every day by subcutane ous route. 04/08 completed Not Available Not Available Not Available Eliquis DVT-PE Treatment 30-Day Starter 5 mg (74 tablets) in dose pack TAKE 1 TABLET BY MOUTH TWICE DAILY 04/17 completed Not Available Not Available Not Available Mounjaro 5 mg/0.5 mL subcutaneou s pen injector 04/21 completed Not Available Not Available Not Available Mounjaro 2.5 mg/0.5 mL subcutaneou s pen injector INJECT 2.5 MG UNDER SKIN EVERY WEEK 04/21 completed Not Available Not Available Not Available Vitals Date Recorded Body height Body mass index (BMI) Body weight Systolic blood pressure Diastolic blood pressure Provider Name and Address Organization Details Last Updated DateTime 02/25/2022 165.1 cm 32.4 kg/m2 88422.51 g 150 mm[Hg] 91 mm[Hg] Barbara Poe [facility] 2 16:02:50 Date Recorded Body height Body mass index (BMI) Body weight Systolic blood pressure Diastolic blood pressure Systolic blood pressure Diastolic blood pressure Provider Name and Address Organization Details Last Updated DateTime 2 165.1 cm 32.6 kg/m2 28188.1 g 149 mm[Hg] 101 mm[Hg] 140 mm[Hg] 100 mm[Hg] [facility] 2 15:16:18 Date Recorded Body height Body mass index (BMI) Body weight Systolic blood pressure Diastolic blood pressure Provider Name and Address Organization Details Last Updated DateTime 04/17/2022 165.1 cm 32.8 kg/m2 64087.7 g 134 mm[Hg] 96 mm[Hg] [facility] 2 16:21:31 Date Recorded Body height Body mass index (BMI) Body weight Systolic blood pressure Diastolic blood pressure Provider Name and Address Organization Details Last Updated DateTime 04/21/2023 165.1 cm 35.4 kg/m2 77452.17 g 149 mm[Hg] 99 mm[Hg] Carmina Stinson [facility] 3 14:59:25 Date Recorded Body height Body mass index (BMI) Body weight Systolic blood pressure Diastolic blood pressure Provider Name and Address Organization Details Last Updated DateTime 05/10/2024 165.1 cm 36.8 kg/m2 685648.9 1 g 155 mm[Hg] 91 mm[Hg] April Molina [facility] 4 12:44:49 Social History Question Answer Notes LastModified by Organizat ion Details LastModified Time Tobacco Smoking Status Current Every Day Smoker Andreina parrish [facility] 04/17/2022 16:03:30 Do You Have An Advance Directive? No [email or web address] Information not available 08/23/2020 What Is Your Level Of Alcohol Consumption? Occasional Information not available 06/25/2020 How Many Years Have You Consumed Alcohol? 0 Information not available 12/17/2021 Are You Blind Or Do You Have Difficulty Seeing? No [email or web address] Information not available 08/23/2020 What Is Your Level Of Caffeine Consumption? Moderate [email or web address] Information not available 08/23/2020 How Much Tobacco Do You Chew? None [email or web address] Information not available 08/23/2020 In The 14 Days Before Symptom Onset, Have You Had Close Contact With A Laboratory-confir med COVID-19 While That Case Was Ill? No Information not available 08/23/2020 In The 14 Days Before Symptom Onset, Have You Had Close Contact With A Person Who Is Under Investigation For COVID-19 While That Person Was Ill? No [email or web address] Information not available 08/23/2020 Have You Been To An Area Known To Be High Risk For COVID-19? No [email or web address] Information not available 08/23/2020 Are You Deaf Or Do You Have Serious Difficulty Hearing? No [email or web address] Information not available 08/23/2020 What Type Of Diet Are You Following? SPECIFIC [email or web address] Information not available 08/23/2020 What Is The Highest Grade Or Level Of School You Have Completed Or The Highest Degree You Have Received? 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 No Information not available 08/23/2020 What Is Your Current Pack Years? 10-19packyears [email or web address] Information not available 04/17/2022 Have You Ever Been Counseled For Unhealthy Alcohol Use? No [email or web address] Information not available 04/17/2022 Do You Use Protection During Sex? No [email or web address] Information not available 08/23/2020 Do You Use Your Seat Belt Or Car Seat Routinely? Yes Information not available 08/23/2020 Do You Have Smoke And Carbon Monoxide Detectors In Your Home? Yes [email or web address] Information not available 08/23/2020 At What Age Did You Start Smoking Tobacco? 39 Information not available 12/17/2021 How Much Tobacco Do You Smoke? No Information not available 12/17/2021 Do You Feel Stressed (tense, Restless, Nervous, Or Anxious, Or Unable To Sleep At Night)? [id number] [email or web address] Information not available 08/23/2020 Do You Use Any Illicit Or Recreational Drugs? No Information not available 06/25/2020 Do You Use Sunscreen Routinely? No [email or web address] Information not available 08/23/2020 How Many Years Have You Smoked Tobacco? 0 Information not available 12/17/2021 Have You Used IV Drugs? No [email or web address] Information not available 08/23/2020 Do You Or Have You Ever Used Any Other Forms Of Tobacco Or Nicotine? No Information not available 04/17/2022 Sex: Female Functional Status Question Answer Note LastModified by Organizat ion Details LastModified Time Do you have difficulty walking or climbing stairs? No [email or web address] Information not available 04/17/2022 Are you able to walk? YESWOREST [email or web address] Information not available 08/23/2020 Are you able to care for yourself? Yes [email or web address] Information not available 04/17/2022 Do you have difficulty dressing or bathing? No [email or web address] Information not available 04/17/2022 What is your exercise level? Occasional rolando Information not available 08/23/2020 Mental Status None recorded. Family History Relationship Description Onset Age of this Age Resolved Age Notes LastModified by Organization Details LastModified Time Mother Asthma Not available 04/21/2023 14:35:51 Mother Hypertensive disorder Not available 2022 14:35:51 Mother Heart disease Not available 2022 14:35:51 Father Hypercholest erolemia Not available 2022 14:35:51 Father Anemia Not available 04/21/2023 14:35:51 Medical History Condition Response Allergies (Food, seasonal, environmental ) N Other N Breast Cancer Y Drug/Latex Allergies/Reactions N Blood Transfusion N Dermatologic Disorders N Lung Disease N Defects or Inherited Disease N Breast Problem N Gestational Diabetes N Hematologic disorders N Anesthesia Complications N History of STI N Deep Vein Thrombosis Y Polycystic ovary syndrome N Anxiety Disorder N Autoimmune disease N Arthritis N Infertility N Polyps N Acid Reflux (GERD) N History of abnormal pap N Cancer N Stroke N Varicosities N Neurologic/Epilepsy N Endometriosis N High Cholesterol N Headaches N Fibromyalgia N Kidney Disease N Heart Problems N Kidney or Bladder Problems N Thyroid Problems N GI Problems N Eating Disorder N Anemia N Art (IVF or FET) N Psychiatric Illness N Ovarian Cancer N Diabetes N Pulmonary (TB, Asthma) N Hepatitis/Liver Disease N Eczema N Urinary Tract Infection N Abuse/Domestic Violence N Asthma N Trauma/Violence N Depression/ depression N Heart Disease N Pre-Eclampsia N Hypertension N Osteoporosis N Thrombophilias N Gynecological History Statement/Question Response Date of Last Mammogram 12/07/2023 Date of LMP 06/07/2020 STIs/STDs N Was last menstrual period normal N HPV Vaccine N Current Control Method Hysterectom y Sexually Active? N Menses Monthly N Age of first menstrual cycle 12 Date of Last Pap Smear 04/21/2023 Sexual Problems? Y Desired Control Method Hysterectom y Obstetrics History GPAL:G 3 P 3 0 0 3 Type Value Full Term 3 Living 3 Total 3 Past Encounters Encounter ID Performer Location Encounter Start Date Encounter Closed Date Diagnosis/Indication Diagnosis SNOMED-CT Code Diagnosis ICD10 Code Diagnosis Note [id number] Cassidy Bates [facility] [address] [address] 04/13/2020 14:06:12 04/13/2020 15:06:02 Gynecologic examination 87978422 Z01.419 Suggested Calcium with Vitamin D 1200-1500m g daily. Patient advised to get an annual flu shot in the fall and she could obtain at [facility] or [facility]. Also to obtain TDap vaccinatio n if you have not had one in the last 10 years. Recommend yearly mammograms . Encouraged monthly self breast exams. Encourage safe sexual practices, to use condoms and limit partners if not already in a monogamous relationsh ip. Engage in daily exercise of low impact aerobic exercise 45-60 minutes 4-5 times weekly. Avoid tobacco and illicit drugs as well as using moderation with alcohol intake less than 1-2 8 oz beverages daily. This lifestyle behavior pattern will lead to less health conditions and longer life span. If BMI greater than 25 weight watchers or dietary consult advised. All questions have been answered. Patient appears to understand informatio n, but if you have any questions please call or respond to this email. pap/hpv updated monogamous relationsh ip Mammo ordered Hx tubal Declines std screen Hemorrhoids 80919061 K64 .9 Some hemorrhoid s on exam ext but unable to determine if internal exam. She would like these checked out. Adult [facility] th examination [id number] Z00.00 [id number] Eda Belcher MD [facility] [address] [address] 06/11/2020 10:31:07 06/11/2020 15:18:44 Menorrhagia 922892388 N92.0 Body mass index 30+ - obesity 983704705 Z68.34 Secondary dysmenorrhea 04601195 N94.5 [id number] Vickie Ross [facility] [address] [address] 06/25/2020 15:35:15 06/25/2020 16:36:07 Menorrhagia 433791380 N92.0 R10.2 [id number] Eda Belcher MD [facility] [address],[place] [address] 06/25/2020 15:36:35 06/26/2020 15:25:42 Leiomyoma 5855259180 45304 D21.9 Menorrhagia 684985797 N9 2.0 R10.2 Secondary dysmenorrhea 87524865 N94.5 [id number] Sean Olivia MD [facility] [address],[place] [address] 07/19/2020 12:08:22 07/19/2020 14:28:22 Menorrhagia 379276984 N92.0 Uterine leiomyoma 915858 05 D25.9 [id number] Sean Olivia MD [facility] [address],[place] [address] 08/07/2020 15:03:16 08/07/2020 16:34:50 Menorrhagia 061741921 N92.0 Uterine leiomyoma 950222 05 D25.9 this patient is a 40-year-ol d female with severe menorrhagi a and uterine fibroids. We have agreed to perform total laparoscop ic hysterecto my and bilateral salpingect gaby. She understand s the risks, benefits, and alternativ es. She has completed the informed consent process and is ready to proceed. [id number] Sean Olivia MD [facility] [address],[place] [address] 08/17/2020 09:31:30 08/17/2020 09:32:33 [id number] Sean Olivia MD [facility] [address],[place] [address] 08/23/2020 15:39:20 08/23/2020 17:04:00 Postoperative care [id number] Z48.89 this patient is a 40-year-ol d female who is 1 week postop from a total laparoscop ic hysterecto my. She passed a large blood clot 3 - 4 days ago. Weeks Examined the vagina and vaginal cuff. There was no blood in the vagina. the incision line was palpated, it was intact. We discussed her precaution s and restrictio ns. She will return in 5 weeks. She is recovering normally. Additional precaution bree measures were taken to minimize potential exposure to the Covid-19 virus during this patient s visit, including available hand brick picker upon arrive, temperatur e check and being asked a series of screening questions. All staff wore face coverings during this encounter, as well as provided additional cleaning and sanitizing of all surfaces, including countertop s, pens, chairs, door handles, light switches, etc, prior to and following the patient s visit. [id number] Sean Olivia MD [facility] [address] [address] 10/01/2020 14:10:48 10/01/2020 14:57:03 Menopausal symptom 62241599 E89.41 this patient is a 40-year-ol d female who is 6 weeks postop from a total laparoscop ic hysterecto my bilateral salpingo-o ophorectom y. She declined hormones initially but is interested in hormone replacemen t therapy now. She was prescribed 1 mg of estradiol. She is ready to go back to work. She is recovering and she is recovering normally. Postoperative pain 12830 9007 G89.18 [id number] Sean Olivia MD [facility] [address] [address] 04/15/2021 16:27:26 04/15/2021 17:14:45 Gynecologic examination [id number] Z01.419 This patient is here for her annual exam. A thorough history was taken. A physical exam was performed. Age appropriat e routine health screening was ordered, performed, and discussed. Recommende d testing was ordered. She was asked to follow up in one year. She will be informed of any test results. Mammogram - [ordered] Colonoscop y - na Bone Density - na Cholestero l - ordered Pap - today [id number] Sean Olivia MD [facility] [address] [address] 07/23/2021 15:48:14 07/24/2021 09:17:28 Body mass index 30+ - obesity 287783120 Z68.34 Obesity 470956175 E66.9 this patient is a 41-year-ol d female with class 1 obesity. Spent over an hour together half of which was counseling discussing multiple complex medical issues regarding her obesity. We took detailed history. Patient's activity is a concern. She needs a dietitian consult to get detailed on her diet and give her good counseling . We agreed to EKG and laboratory evaluation . We going to consider medication s for the treatment of obesity. She is not have any issues regarding mood or sleep. We agreed to discontinu e the estradiol with started in the fall. Is likely unnecessar y. She will follow-up in 2 weeks. Body compositio n analysis was performed. [id number] Sean Olivia MD [facility] [address],[facility] [address] 08/06/2021 14:09:07 08/07/2021 09:06:21 Obesity 558892063 E66.9 this patient is a 41-year-ol d female presents for follow-up on weight management . Patient completed EKG and some laboratory evaluation . We agreed this span laboratory evaluation s some. She has not seen dietitian yet but is on the schedule for 2 days from now. She had an incomplete right bundle-bra nch block. Phentermin e should not be contraindi cated in this situation. This incomplete bundle branch block may be a variation of normal Within normal length QRS complex. We talked about treatment in detail. We spent 25 minutes face-to-fa ce. Most of that was counseling , greater than 50%. Talked about her labs, including her vitamin-D, we talked about her and abnormal LDL, we agreed to start treatment with phentermin e topiramate . She will return in 2 weeks to confirm she is tolerating the medication . She has a dietitian consult in 2 days. Vitamin D deficiency 347 42137 E55.9 [id number] Sean Olivia MD [facility] [address],[facility] [address] 08/20/2021 15:50:45 08/20/2021 17:07:10 Hypercholesterolemia 07611836 E78.00 Obesity 978700450 E66.9 this patient is a 41-year-ol d female presents for follow-up on obesity. We reviewed her labs. She has hyperchole sterolemia . This could likely be controlled with diet and exercise. We talked about her energy consumptio n. She talked about some of the details of her diet. She had a consultati on with the dietitian. She has follow-up with her next week. The patient was placed on a combinatio n phentermin e topiramate medication treatment. She is doing well with that. She has lost 7 lb since her last visit and only reports some thirst. She is making changes to her snacking. She is doing well. She will follow-up here in 3 weeks. We spent More than 20 minutes face-to-fa ce. More than 50% was counseling . [id number] Sean Olivia MD [facility] [address],[place] [address] 09/10/2021 15:12:46 09/10/2021 17:10:10 Obesity 986626760 E66.9 this patient is a 41-year-ol d female who presents for follow-up on weight management . After some initial progress. Her weight loss has stalled over the last 3 weeks. Five of those days she does not have her medication s. She ate Albanian yesterday outside the house. So far, the dietitian and myself or having hard time identifyin g areas were improvemen t can be made. She is active. She reports good food choices. She reports consuming low amounts of energy. Perhaps there is something in her diet she is not accounting for. But, it is early still. We will continue doing her current plan with increase in the phentermin e to 30 mg daily. We spent over 35 minutes face-to-fa ce. We discussed strategies for improving weight loss. More than half of the time spent together was counseling . [id number] Sean Olivia MD [facility] [address],[place] [address] 10/22/2021 17:49:09 10/23/2021 14:32:24 Obesity 439503108 E66.9 1-year-old female presents for follow-up on weight management . Patient has lost significan t weight in the last month. She has lost 8 lb. This is over about 5 week span. She is taking 30 mg of phentermin e daily and 25 mg of topiramate . She has no untoward side effects. She described some of her dietary habits today. She is avoiding extra snacking and sweets. She is very active. She is doing no intentiona l exercise but claims that she is extremely active throughout the day and never stops. Spent over 20 minutes face-to-fa ce. We talked about medication s. Talked about potential medication changes. We prescribed medication s and gave precaution s. [id number] Sean Olivia MD [facility] [address],[place] [address] 11/19/2021 15:49:22 11/20/2021 14:38:35 Obesity 313846404 E66.9 this patient is a 41-year-ol d female who presents for follow-up on weight management . She had a little bit of weight regain. She is not following up with the dietitian. She states that she is doing everything right. She is taking 30 mg of phentermin e. We agreed to continue. We agreed to of her topiramate to 100 mg. I informed her of side effects. We spent over 20 minutes face-to-fa ce. Talked about exercise. She is not very active at this time. [id number] Sean Olivia MD [facility] [address],[place] [address] 12/17/2021 14:49:43 12/17/2021 17:11:08 Obesity 817467813 E66.9 This patient is a 41-year-ol d female presents for follow-up on 0 0 weight management . She has lost modest amount of weight. We talked about medication changes. Talked about her exercise and her diet. Her phentermin e was covered completely by her insurance. We agreed to try to get liraglutid e through her pharmacy. Prescripti on was sent. She was given detailed instructio ns. we spent 20 minutes face-to-fa ce. More than 50% was counseling . Talked about exercise specifical ly. Talked about medication s in detail. Urinary tr act infectious disease 17888900 N39.0 patient reports urinary symptoms. She has frequency, dysuria, her urine smells different, she wants to be treated for urinary tract infection. Should collect urine for urine culture [id number] Sean Olivia MD [facility] [address],[place] [address] 12/31/2021 17:26:45 01/01/2022 10:24:05 Obesity 411570214 E66.9 This patient is a 41-year- old female who presents for weight management . She continues to lose weight. We talked about medication changes. We attempted to start liraglutid e. the prescripti on never made it to the pharmacy. Never got out of our system. We represcrib ed today. There was a confirmati on that was treated by the pharmacy. We talked about the phentermin e. Talked about her activity level. Talked about her diet. She is doing well. She is staying active. She plans to initiate some resistance training. We spent 20 minutes face-to-fa ce. More than 50% was counseling . [id number] Sean Olivia MD [facility] [address],[place] [address] 01/14/2022 17:17:18 01/15/2022 15:12:17 Deep venous thrombosis 342161011 I82.409 Obesity 743126049 E66.9 this patient is a 41-year-ol d female who presents for follow-up on weight management . She had a DVT that was diagnosed recently. She has been immobile and on and with exercise. Her diet spent okay but she has not been able to make the progress that she usually does. We talked about her treatment for her leg and the activity that is allowed. She gave me lot of detail on her ER visit and other interactio ns with her healthcare providers. She talked about her follow-up on her DVT. She aligned her anticoagul ation treatment. She will continue the medication and return in 1 month. We will maintain her current routine. [id number] Sean Olivia MD [facility] [address],[place] [address] 02/11/2022 16:49:35 02/12/2022 14:08:50 Obesity 447206682 E66.9 this patient is a 41-year-ol d female presents for weight management follow-up. We talked about her lack of recent progress. We talked about her diet. Talked about all her activity level. It is increased while still recovering from her DVT. Talked about her medication s. She is a little unsatisfie d with the effectiven ess of the medication . We talked about the new DLP 1 agonist. Talked about the side effects, talked about efficacy. About dosing. We spent over 20 minutes face-to-fa ce. More than 50% was counseling . We agreed to start MOunjarro. She will start the Lowest dose and take that dose for 1 month. She will return in 1 month. [id number] Sean Olivia MD [facility] [address],[place] [address] 02/25/2022 15:58:03 02/26/2022 15:49:43 Obesity 600224833 E66.9 this patient is a 41-year-ol d female presents for weight management follow-up. We talked about her lack of recent progress. We talked about her diet. Talked about all her activity level. It is increased while still recovering from her DVT. Talked about her medication s. She is a little unsatisfie d with the effectiven ess of the medication . We talked about the new DLP 1 agonist. Talked about the side effects, talked about efficacy. About dosing. We spent over 20 minutes face-to-fa ce. More than 50% was counseling . We agreed to start MOunjarro. She will start the Lowest dose and take that dose for 1 month. She will return in 1 month. [id number] Sean Olivia MD [facility] [address],[place] [address] 03/25/2022 14:52:10 03/26/2022 11:43:45 Obesity 993862015 E66.9 this patient is a 42-year-ol d female who presents for weight loss follow-up. She has plateaued in her weight loss Effort. She has started GLP 1 agonist. no change at. This 2nd month the PIERO P1 IS ought to be. The higher dose was prescribed . she is inactive. Seekshe has not been able to exercise due to recent medical problems. DVT. She has been staying in contact with dietitian. We spent over 20 minutes face-to-fa ce. More than 50% was counseling . She will return in 2 w [id number] Sean Olivia MD [facility] [address],[place] [address] 04/17/2022 16:03:21 04/17/2022 17:16:52 Gynecologic examination 00127641 Z01.419 Z11.51 This patient is here for her annual exam. A thorough history was taken. A physical exam was performed. Age appropriat e routine health screening was ordered, performed, and discussed. Recommende d testing was ordered. She was asked to follow up in one year. She will be informed of any test results. Mammogram - na Colonoscop y - na Bone Density - na Cholestero l - ordered Pap - today recently diagnosed with breast cancer, awaits staging [id number] Sean Olivia MD [facility] [address],[place] [address] 04/21/2023 14:31:44 04/21/2023 15:35:17 Gynecologic examination 24975174 Z01.419 Z11.51 This patient is here for her annual exam. A thorough history was taken. A physical exam was performed. Age appropriat e routine health screening was ordered, performed, and discussed. Recommende d testing was ordered. She was asked to follow up in one year. She will be informed of any test results. Mammogram - na Colonoscop y - na Bone Density - na Cholestero l - ordered Pap - today recently diagnosed with breast cancer, awaits staging [id number] Sean Olivia MD [facility] [address],[place] [address] 05/10/2024 12:18:23 05/10/2024 13:25:49 Urge incontinence of urine 88166834 N39.41 Gynecologi c examination 07597841 Z01.419 Z11.51 This patient is here for her annual exam. A thorough history was taken. A physical exam was performed. Age appropriat e routine health screening was ordered, performed, and discussed. Recommende d testing was ordered. She was asked to follow up in one year. She will be informed of any test results. Mammogram - na s/p breast ca Colonoscop y - na Bone Density - na Cholestero l - ordered Pap - today Health Concerns Section Related Observation LastModified by Organization Detai ls LastModified Time None Recorded Concern Status LastModified by Organization Details LastModified Time None Recorded Advance Directives Directive N: Payers Encounter Date Sequence Insurance Name Policy Number Policy Stubbs Covered Member ID Stubbs Member ID Guarantor Name 02/25/2022 2 [place] [id number] Avila Disla [id number] Frederick Marco Disla 03/25/2022 2 [place] [id number] Avila Disla [id number] Marvin Frederick Marco Disla 04/17/2022 2 [place] [id number] Avila Disla [id number] Marvin Frederick Marco Disla 04/21/2023 2 [place] [id number] Avila Disla [id number] Marvin Frederick Marco Disla 05/10/2024 1 [facility] [id number] Marvin Frederick Marco Disla [id number] Marvin Frederick Marco Disla 05/10/2024 2 [place] [id number] Avila Disla [id number] Marvin Frederick Marco Disla Notes Date Note Type Note Provider Name and Address Organization Details Recorded Time 02/25/2022 text/html this patient is a 41-year-old female presents for weight management follow-up. We talked about her lack of recent progress. We talked about her diet. Talked about all her activity level. It is increased while still recovering from her DVT. Talked about her medications. She is a little unsatisfied with the effectiveness of the medication. We talked about the new DLP 1 agonist. Talked about the side effects, talked about efficacy. About dosing. We spent over 20 minutes [id number]. More than 50% was counseling. We agreed to start MOunjarro. She will start the Lowest dose and take that dose for 1 month. She will return in 1 month. Sean Olivia MD [address], [place], [address], [facility] [place] 02/26/2022 23:15:50 03/25/2022 text/html this patient is a 42-year-old female who presents for weight loss follow-up. She has plateaued in her weight loss Effort. She has started GLP 1 agonist. no change at. This 2nd month the PIERO P1 IS ought to be. The higher dose was prescribed. she is inactive. Seekshe has not been able to exercise due to recent medical problems. DVT. She has been staying in contact with dietitian. We spent over 20 minutes [id number]. More than 50% was counseling. She will return in 2 w Sean Olivia MD [address], [place], [address], [facility] 03/25/2022 18:06:35 04/17/2022 text/html Annual GYNReport ed bypatient.History:n o gynecologic complaints Urinary symptoms:No hematuria Vulva:No genital lesion Vagina:Normal vaginal discharge Breast:No breast pain Menopausal Symptoms:No menopausal symptoms; Normal vaginal lubrication Psychological symptoms:No depression; No anxiety Preventive measures:Encourage regular exercise Sean Olivia MD [address], [place], [address], [facility] 04/17/2022 16:58:44 04/21/2023 text/html Annual GYNReport ed bypatient.History:n o gynecologic complaints Menstrual cycle:Normal menses Urinary symptoms:No hematuria; No incontinence Vulva:No genital lesion Vagina:Normal vaginal discharge Menopausal Symptoms:No menopausal symptoms; Normal vaginal lubrication Psychological symptoms:No depression; No anxiety Preventive measures:Encourage self breast examination; Encourage regular exercise Sean Olivia MD [address], [place], [address], [facility] 04/21/2023 15:34:28 05/10/2024 text/html Annual GYNReport ed bypatient.History:n o gynecologic complaints Urinary symptoms:No hematuria Vulva:No genital lesion Vagina:Normal vaginal discharge Sexual complaints:No sexual complaints; No pain during intercourse Menopausal Symptoms:Normal vaginal lubrication;Insomni a due to night sweats Psychological symptoms:No depression; No anxiety Preventive measures:Encourage self breast examination; Encourage regular exercise Sean Olivai MD [address], [place], [address], [facility] 05/10/2024 13:19:39 OBGyn Episode Ob Episode Information Episode Created Date Number of Fetuses Patient Bloodtype Patient rh Status Prepregnancy Weight lbs Domestic Partner Domestic Partner Phone Father Name Clinique Counter Manager Status 04/13/20 20 1 CLOSED Fetus Data First Name Last Name Admitted to NICU Weight (g) Sex Living Outcome Pediatric Complications Fetus ID Race Codes Race Delivery Type 3316.66 4704 M Full Term [id number] Vaginal Delivery Quoc Calculation Initial Quoc Date Initial Exam Date Initial Exam Provider Initial Ultrasound Date Last Menstrual Period Date Ultra Sound Weeks Gestation 0 Eighteen To Twenty Week Quoc Update Ultra Sound Date Fundal Height At Umbil Quickening Date Ultra Sound Latest Weeks Gestation Final Quoc Confirmed By Final Quoc Confirmed Date Final Quoc Date Ultra Sound Latest Days Gestation 0 0 Menstrual History Last Menstrual Date Menses Monthly On Bcp Conception Prior Menses Frequency Hcg Plus Date Menarche Onset Age Delivery Information Delivery Date Delivery Type Labor Anesthesia Weeks Gestation Incision Type Labor Labor Length Hrs Delivered By Post Complications Tubal Sterilization Discharge Date Comments 8 39 Discharge Information Feeding Method Contraceptive Method Maternal HG B and HCT Levels Ob Episode Information Episode Created Date Number of Fetuses Patient Bloodtype Patient rh Status Prepregnancy Weight lbs Domestic Partner Domestic Partner Phone Father Name Clinique Counter Manager Status 04/13/20 20 1 CLOSED Fetus Data First Name Last Name Admitted to NICU Weight (g) Sex Living Outcome Pediatric Complications Fetus ID Race Codes Race Delivery Type [phone] 9 F Full Term 5912 Quoc Calculation Initial Quoc Date Initial Exam Date Initial Exam Provider Initial Ultrasound Date Last Menstrual Period Date Ultra Sound Weeks Gestation 0 Eighteen To Twenty Week Quoc Update Ultra Sound Date Fundal Height At Umbil Quickening Date Ultra Sound Latest Weeks Gestation Final Quoc Confirmed By Final Quoc Confirmed Date Final Quoc Date Ultra Sound Latest Days Gestation 0 0 Menstrual History Last Menstrual Date Menses Monthly On Bcp Conception Prior Menses Frequency Hcg Plus Date Menarche Onset Age Delivery Information Delivery Date Delivery Type Labor Anesthesia Weeks Gestation Incision Type Labor Labor Length Hrs Delivered By Post Complications Tubal Sterilization Discharge Date Comments 4 39 Discharge Information Feeding Method Contraceptive Method Maternal HG B and HCT Levels Ob Episode Information Episode Created Date Number of Fetuses Patient Bloodtype Patient rh Status Prepregnancy Weight lbs Domestic Partner Domestic Partner Phone Father Name Clinique Counter Manager Status 04/13/20 20 1 CLOSED Fetus Data First Name Last Name Admitted to NICU Weight (g) Sex Living Outcome Pediatric Complications Fetus ID Race Codes Race Delivery Type 3345.24 1 M Full Term 5913 Vaginal Delivery Quoc Calculation Initial Uqoc Date Initial Exam Date Initial Exam Provider Initial Ultrasound Date Last Menstrual Period Date Ultra Sound Weeks Gestation 0 Eighteen To Twenty Week Quoc Update Ultra Sound Date Fundal Height At Umbil Quickening Date Ultra Sound Latest Weeks Gestation Final Quoc Confirmed By Final Quoc Confirmed Date Final Quoc Date Ultra Sound Latest Days Gestation 0 0 Menstrual History Last Menstrual Date Menses Monthly On Bcp Conception Prior Menses Frequency Hcg Plus Date Menarche Onset Age Delivery Information Delivery Date Delivery Type Labor Anesthesia Weeks Gestation Incision Type Labor Labor Length Hrs Delivered By Post Complications Tubal Sterilization Discharge Date Comments 6 39 Discharge Information Feeding Method Contraceptive Method Maternal HG B and HCT Levels
--- OUTSIDE RECORDS SUMMARY | 2024-08-03 11:51 | XMS_ITS | Patient Health Summary ---
Author Organization [facility] Address [address] [place] [address] Care Team Providers Care Tube Coremaker Name Role Phone Gian He MD Primary Care Provider [phone] Note from [facility],non-owned Affiliates and Associated Physician Practices is amultiple site organization consisting of ambulatory clinics and hospital sitesin [place], [place], [place] and [place]. This disclosure is being madepursuant to the Care Everywhere program and may not contain all information available regarding this patient. Last updated 18.[facility] Allergies * Betaine(Itching,Rash) -Medium Criticality Medications * Be aware that medications may not be up to date on this document. Alwaysverify current medications with the patient. * oxycodone-acetaminophen (PERCOCET) 5-325 MG tablet(Started 02/06/2012) Take 1 Tab by mouth every 4 hours as needed for Pain. * cyanocobalamin 100 MCG tablet Take 1 (one) tablet by mouth once daily * hydroCHLOROthiazide (Hydrodiuril) 25 MG tablet(Started 09/06/2023) Take 1 (one) tablet by mouth once daily Active Problems No known active problems Social History Tobacco Use Types Packs/Day Years Used Date Smoking Tobacco: Former Smokeless Tobacco: Never Tobacco Cessation:Counseling Given: No Comments:quit 09/2011 Alcohol Use Standard Drinks/Week Comments [...] on file Sexual Orientation Not on file Last Filed Vital Signs Vital Sign Reading Time Taken Comments Blood Pressure 161/95 09/17/2023 10:46 AM CDT Pulse 79 09/17/2023 10:46 AM CDT Temperature 36.4 C (97.6 F) 09/17/2023 10:46 AM CDT Respiratory Rate 16 01/07/2022 4:56 PM CDT Oxygen Saturation 98% 09/17/2023 10:46 AM CDT Inhaled Oxygen Concentration - - Weight 98.9 kg (218 lb) 09/17/2023 10:46 AM CDT Height 154.9 cm (5' 1 ) 09/17/2023 10:46 AM CDT Body Mass Index 41.19 09/17/2023 10:46 AM CDT Procedures * VAS BILATERAL VENOUS REFLUX(Performed 10/02/2023) Performed for Leg swelling * CT ABDOMEN PELVIS W CONTRAST(Performed 02/06/2012) Performed for Pain, abdominal, nonspecific * HCG URINE QUALITATIVE - POINT OF CARE(Performed 02/06/2012) * PT PTT PANEL(Performed 02/06/2012) * URINALYSIS REFLEX MICROSCOPIC REFLEX CULTURE(Performed 02/06/2012) * AMYLASE BLOOD(Performed 02/06/2012) * LIPASE BLOOD(Performed 02/06/2012) * COMPREHENSIVE METABOLIC PANEL(Performed 02/06/2012) * CBC W AUTO DIFFERENTIAL(Performed 02/06/2012) * CYTOLOGY APPLICATIONS INSTRUCTOR PANEL(Performed 12/23/1994) Results * VAS BILATERAL VENOUS REFLUX (10/02/2023 8:49 AM CDT) Anatomical Region Laterality Modality Upper Extremity, Lower Extremity Intravascular Ultrasound 10/02/2023 8:19 AM CDT Narrative Procedure Note Arvind Frankel MD - 10/02/2023 Jaiden West MD VASCULAR LAB ORDERAB LES * CT ABDOMEN AND PELVIS WITH IV CONTRAST (02/06/2012 8:26 PM CDT) Anatomical Region Laterality Modality Abdomen, Pelvis Computed Tomogra phy 02/06/2012 8:36 PM CDT Narrative 02/06/2012 8:[address] ABDOMEN AND PELVIS HISTORY: Lower abdominal pain TECHNIQUE: Multiple contiguous axial images of the abdomen and pelvis were obtained following 100 cc intravenous contrast administration of Omnipaque-350. FINDINGS: The liver, gallbladder, spleen, pancreas, adrenal glands, kidneys, and visualized ureters are normal. The uterus is grossly normal although poorly seen. The left adnexa is normal. There is a 6.5 x 5.5 cm cystic structure in the right adnexa likely from the right ovary with associated mass effect upon the bladder. The bladder is otherwise normal. Free pelvic fluid is present. There is a small periumbilical hernia with questionably mildly herniated small bowel loop. The large and small bowel are otherwise normal. The appendix is visualized and normal. The vascular structures enhance normally. There is no adenopathy. The lung bases are clear. DIAGNOSES: There is a 6.5 x 5.5 cm right ovarian cyst and free pelvic fluid. Mild mass effect upon the bladder is present. There is a small periumbilical hernia with minimally herniated small bowel. No bowel obstruction is present. Procedure Note Cricket Latham MD - 02/06/2012 CT ABDOMEN AND PELVIS HISTORY: Lower abdominal pain TECHNIQUE: Multiple contiguous axial images of the abdomen and pelvis were obtained following 100 cc intravenous contrast administration of Omnipaque-350. FINDINGS: The liver, gallbladder, spleen, pancreas, adrenal glands, kidneys, and visualized ureters are normal. The uterus is grossly normal although poorly seen. The left adnexa is normal. There is a 6.5 x 5.5 cm cystic structure in the right adnexa likely from the right ovary with associated mass effect upon the bladder. The bladder is otherwise normal. Free pelvic fluid is present. There is a small periumbilical hernia with questionably mildly herniated small bowel loop. The large and small bowel are otherwise normal. The appendix is visualized and normal. The vascular structures enhance normally. There is no adenopathy. The lung bases are clear. DIAGNOSES: There is a 6.5 x 5.5 cm right ovarian cyst and free pelvic fluid. Mild mass effect upon the bladder is present. There is a small periumbilical hernia with minimally herniated small bowel. No bowel obstruction is present. Bobby Lake DO CT ORDERABLES * HCG URINE QUALITATIVE - POINT OF CARE (IP) (02/06/2012 7:52 PM CDT) Pathologist [facility] HCG Qual Urine negative Negative [facility] POCT TESTING QC Verified yes Yes [facility] POC T TESTING Urine specimen (specimen) URINE / Unknown 02/06/2012 7:52 PM CDT Chanda Palomino ASSISTANT PRESSMAN-POST OFFICE MANAGER LAB - POINT OF C ARE ORDERABLES Performing Organization Address City/[facility]/ZIP Co de Phone Number [facility] [place] [address] * PT PTT PANEL (02/06/2012 7:50 PM CDT) Pathologist [facility] PT 11.1 9.4 - 11.4 seconds [facility] INR 1.04 SEE BELOW [facility] Comment: Conventional anticoagulation 2.0-3.0 Intensive anticoagulation 2.5-3.5 PTT 26.9 24.0 - 33.0 seconds [facility] Blood specimen (specimen) BLOOD SPECIMEN / Unknown 02/06/2012 7:50 PM CDT 02/06/2012 7:50 PM CDT Bobby Lake DO LAB - COAGULATION OR DERABLES Performing Organization Address City/[facility]/ZIP Co de Phone Number [facility] [address] [place] [address] * (ABNORMAL) URINALYSIS ROUTINE W/REFLEX TO CULTURE (02/06/2012 7:49 PM CDT) Source Clean Catch [facility] Color UA Yellow [facility] Character UA Clear [facility] Glucose UA TRACE(H) NEGATIVE mg/dl [facility] Bilirubin UA NEGATIVE NEGATIVE [facility] Ketone UA NEGATIVE NEGATIVE mg/dl [facility] Specific [place] UA 1.020 1.003 - 1.030 [facility] Blood UA NEGATIVE NEGATIVE [facility] pH UA 6.5 5.0 - 9.0 [facility] Protein UA 1+(H) NEGATIVE-TR SUKHDEEP mg/dl [facility] Urobilinogen UA 1.0 0.2 - 1.0 Ethel Units/dl [facility] Nitrite UA NEGATIVE NEGATIVE [facility] Leukocyte UA NEGATIVE NEGATIVE [facility] Urine Culture Culture is not indicated per protocol. [facility] Urine specimen (specimen) URINE SPECIMEN OBTAINED BY CLEAN CATCH PROCEDURE / Unknown 02/06/2012 7:49 PM CDT 02/06/2012 7:49 PM CDT Chanda Nelson Palomino ASSISTANT PRESSMAN-POST OFFICE MANAGER LAB - URINALYSIS ORDERABLES [facility] [address] [place] [address] * CBC W AUTO DIFFERENTIAL (02/06/2012 5:45 PM CDT) WBC 5.4 4.0 - 10.0 K/CUMM [facility] RBC 4.43 3.80 - 5.80 M/CUMM [facility] Hemoglobin 14.2 12.0 - 16.0 gm/dL [facility] Hematocrit 39.5 37.0 - 47.0 % [facility] MCV 89.2 80.0 - 100.0 fl [facility] MCH 32.1 26.0 - 34.0 pg [facility] MCHC 35.9 31.0 - 37.0 gm/dL [facility] Platelet Count 166 150 - 400 K/CUMM [facility] RDW 13.1 11.5 - 14.5 % [facility] Granulocytes % 58.2 50 - 70 % [facility] Lymphocytes % 31.3 20 - 40 % [facility] Monocytes % 9.3 0 - 12 % [facility] Eosinophils % 0.6 0 - 5 % [facility] Basophils % 0.4 0 - 2 % [facility] Granulocytes Absolute 3.12 2.00 - 7.00 x1000/cmm [facility] Lymphocytes Absolute 1.68 0.80 - 4.00 x1000/cmm [facility] Monocytes Absolute 0.50 0.00 - 1.20 x1000/cmm [facility] Eosinophils Absolute 0.03 0.00 - 0.50 x1000/cmm [facility] Basophils Absolute 0.02 0.00 - 0.20 x1000/cmm [facility] Blood specimen (specimen) BLOOD SPECIMEN / Unknown 02/06/2012 5:45 PM CDT 02/06/2012 5:56 PM CDT Chanda Palomino APRN-POST OFFICE MANAGER LAB - HEMATOLOGY ORDERABLES Performing Organization Address City/[facility]/ZIP Co de Phone Number [facility] [address] [place] [address] * (ABNORMAL) COMPREHENSIVE METABOLIC PANEL (02/06/2012 5:45 PM CDT) Sodium 142 136 - 145 mmol/L [facility] Potassium 3.5 3.5 - 5.1 mmol/L [facility] Chloride 108(H) 98 - 107 mmol/L [facility] BUN 13 7 - 21.0 mg/dl [facility] Creatinine 0.70 0.5 - 1.3 mg/dl [facility] Glucose 57(L) 65 - 105 mg/dl [facility] Calcium 8.9 8.5 - 10.1 mg/dl [facility] Alkaline Phosphatase 54 38 - 126 U/L [facility] AST 10 5.0 - 40 U/L [facility] Bilirubin Total 0.3 0.2 - 1.0 mg/dl [facility] Protein Total 7.2 6.4 - 8.2 gm/dl [facility] Albumin 3.6 3.4 - 5.0 gm/dl [facility] CO2 23 22 - 30 mmol/L [facility] ALT 13 12.0 - 78.0 U/L [facility] eGFR by MDRD >60 >60 mL/min/1.7 3m2 [facility] Comment eGFR [facility] Comment: The eGFR does not apply to patients who are younger than 18 or older than 70. Blood specimen (specimen) BLOOD SPECIMEN / Unknown 02/06/2012 5:45 PM CDT 02/06/2012 5:56 PM CDT Chanda SUTHERLANDPOST OFFICE MANAGER LAB - CHEMISTRY ORDERABLES [facility] [address] [place], [place] [id number] * LIPASE BLOOD (02/06/2012 5:45 PM CDT) Lipase 181 73 - 393 U/L [facility] Blood specimen (specimen) BLOOD SPECIMEN / Unknown 02/06/2012 5:45 PM CDT 02/06/2012 8:08 PM CDT Bobby Lake DO LAB - CHEMISTRY MYRANDA DELONG Performing Organization Address City/[facility] Co de Phone Number [facility] [address] [place] [id number] * AMYLASE BLOOD (02/06/2012 5:45 PM CDT) Amylase 68 15 - 115 U/L [facility] Blood specimen (specimen) BLOOD SPECIMEN / Unknown 02/06/2012 5:45 PM CDT 02/06/2012 8:08 PM CDT Bobby Lake DO LAB - CHEMISTRY MYRANDA DELONG Performing Organization Address [facility] de Phone Number [facility] [address] [place] [id number] * CYTOLOGY APPLICATIONS INSTRUCTOR PANEL (12/23/1994 2:15 PM CDT) Result CASE NUMBER [id number] [facility] PATH REPORT Comment: ORDERING PHYSICIAN AMY ALVAREZ SPECIMEN TYPE Pap Smear Pap Smear See Report in Chart Snomed Code 1 12/30/1994 0842 <2> MISCELLANEOUS SAMPLES / Unknown 12/23/1994 2:15 PM CDT 12/24/1994 8:18 AM CDT Historical Provider LAB - PATHOLOGY/C YTOLOGY ORDERABLES Performing Organization Address City/[facility] Co de Phone Number [facility] PATH REPORT Care Teams Tube Coremaker Relationship Specialty Start Date End Date Gian He MD [address] [facility] [address] [address] [place] [address] PCP - General 06/03/22
--- OUTSIDE RECORDS SUMMARY | 2024-08-03 11:51 | XMS_ITS | Encounter Summary ---
Author Organization [facility] Address [address] [place] [address] Care Team Providers Care Baster Hand Name Role Phone Unavailable Primary Care Provider Unavailabl e Prior Encounters Date Type Department Care Team Description 01/21/2024 11:00 AM CDT Office Visit [facility] [address] [place] [phone] Claudia Jones RDH 01/21/2024 Travel 01/21/2024 8:00 AM CDT Office Visit [facility] [address] [place] [phone] Vinita Ochoa, BAR Encounter for dental examination and cleaning without abnormal findings (Primary Dx) Last Filed Vital Signs Vital Sign Reading Time Taken Comments Blood Pressure 140/82 01/21/2024 11:11 AM CDT Pulse - - Temperature - - Respiratory Rate - - Oxygen Saturation - - Inhaled Oxygen Concentration - - Weight - - Height - - Body Mass Index - - Plan of Treatment Not on file Procedures Procedure Name Priority Date/Time Associated Diagnosis Comments UR KLAUS DECON/QD Routine 01/21/2024 11:00 AM CDT UL ANTIBACT IRR/QUAD Routine 01/21/2024 11:00 AM CDT LL PERIODONTAL SCALING AND ROOT PLANING - FOUR OR MORE TEETH PER QUADRANT Routine 01/21/2024 11:00 AM CDT LR ANTIBACT IRR/QUAD Routine 01/21/2024 11:00 AM CDT LL KLAUS DECON/QD Routine 01/21/2024 11:00 AM CDT LR KLAUS DECON/QD Routine 01/21/2024 11:00 AM CDT ORAL HYGIENE INSTRUCTIONS Routine 2023 11:00 AM CDT LR PERIODONTAL SCALING AND ROOT PLANING - FOUR OR MORE TEETH PER QUADRANT Routine 01/21/2024 11:00 AM CDT LL ANTIBACT IRR/QUAD Routine 01/21/2024 11:00 AM CDT UL KLAUS DECON/QD Routine 01/21/2024 11:00 AM CDT UL PERIODONTAL SCALING AND ROOT PLANING - FOUR OR MORE TEETH PER QUADRANT Routine 01/21/2024 11:00 AM CDT UR ANTIBACT IRR/QUAD Routine 01/21/2024 11:00 AM CDT UR PERIODONTAL SCALING AND ROOT PLANING - FOUR OR MORE TEETH PER QUADRANT Routine 01/21/2024 11:00 AM CDT INTRAORAL PHOTO Routine 01/21/2024 8:00 AM CDT INTRAORAL PHOTO Routine 01/21/2024 8:00 AM CDT INTRAORAL PHOTO Routine 01/21/2024 8:00 AM CDT INTRAORAL PHOTO Routine 01/21/2024 8:00 AM CDT PANORAMIC RADIOGRAPHIC IMAGE Routine 01/21/2024 8:00 AM CDT INTRAORAL - COMPREHENSIVE SERIES OF RADIOGRAPHIC IMAGES Routine 01/21/2024 8:00 AM CDT COMPREHENSIVE ORAL EVALUATION - NEW OR ESTABLISHED PATIENT Routine 01/21/2024 8:00 AM CDT Encounter for dental examination and cleaning without abnormal findings 5 DO RESIN-BASED COMPOSITE - TWO SURFACES, POSTERIOR Routine 01/21/2024 8:00 AM CDT 6 I RESIN-BASED COMPOSITE - ONE SURFACE, ANTERIOR Routine 01/21/2024 8:00 AM CDT 9 CORE BUILDUP, INCLUDING ANY PINS WHEN REQUIRED Routine 01/21/2024 8:00 AM CDT 8 CORE BUILDUP, INCLUDING ANY PINS WHEN REQUIRED Routine 01/21/2024 8:00 AM CDT 7 CORE BUILDUP, INCLUDING ANY PINS WHEN REQUIRED Routine 01/21/2024 8:00 AM CDT 7 M COMPOSITE FILLING Routine 01/21/2024 12:00 AM CDT 8 F COMPOSITE FILLING Routine 01/21/2024 12:00 AM CDT 10 M COMPOSITE FILLING Routine 12:00 AM CDT 8 D COMPOSITE FILLING Routine 01/21/2024 12:00 AM CDT 9 MF COMPOSITE FILLING Routine 12:00 AM CDT 8 M COMPOSITE FILLING Routine 01/21/2024 12:00 AM CDT 13 MO COMPOSITE FILLING Routine 08/15/20 24 12:00 AM CDT 12 DO COMPOSITE FILLING Routine 01/21/20 24 12:00 AM CDT 21 CEREC CROWN Routine 01/21/2024 12:00 AM CDT 20 CEREC CROWN Routine 01/21/2024 12:00 AM CDT 19 MOD COMPOSITE FILLING Routine 024 12:00 AM CDT 21 ROOT CANAL Routine 01/21/2024 12:00 AM CDT 31 ROOT CANAL Routine 01/21/2024 12:00 AM CDT 31 CEREC CROWN Routine 01/21/2024 12:00 AM CDT 18 CEREC CROWN Routine 01/21/2024 12:00 AM CDT Visit Diagnoses Diagnosis Start Date Encounter for dental examination and cleaning without abnormal findings 01/21/2024 Insurance [facility] PPO
--- OUTSIDE RECORDS SUMMARY | 2024-08-03 11:51 | XMS_ITS | Clinical Summary ---
Author Organization [address] Address [address] [place] [phone] Care Team Providers Care Vacuum Evaporation Operator Name Role Phone Shante Flower MD Primary Care Provi rocío Allergies No known active allergies Medications ergocalciferol (VITAMIN D) 50,000 unit capsule ergocalciferol (vitamin D2) 1,250 mcg (50,000 unit) capsule TAKE 1 CAPSULE BY MOUTH EVERY WEEK WITH MEALS Active phentermine 15 mg capsule Take by mouth daily 2 Active topiramate (TOPAMAX) 25 mg tablet topiramate 25 mg tablet TAKE 1 TABLET BY MOUTH EVERY DAY Active Active Problems Problem Noted Date Diagnosed Date Class 2 severe obesity due t o excess calories with serious comorbidity and body mass index (BMI) of 38.0 to 38.9 in adult 08/26/2021 Assessment & Plan (08/26/2021 9:21 AM CDT): Reviewed risks of medication like phentermine including pulmonary hypertension Dark urine 08/26/2021 Assessment & Plan (08/26/2021 9:21 AM CDT): Will check lab with micro Hair loss 08/26/2021 Assessment & Plan (08/26/2021 9:22 AM CDT): TSH and blood counts normal Will check B12, esr Consider further evaluation pending those results Vitamin D deficiency 08/26/2021 Assessment & Plan (08/26/2021 9:22 AM CDT): Continue vitamin d Pure hypercholesterolemia 08/20/2021 Assessment & Plan (08/26/2021 9:20 AM CDT): Mildly elevated LDL/bad cholesterol We discussed healthy changes for her lifestyle Immunizations Immunization Administration Dates Next Due Hep A / Hep B 03/17/2012 Hep A, Adult 04/28/2005 Influenza, Unspecified 03/08/2021(Deferr ed: Patient Refused),03/08/2020(Deferred: Patient Refused) Family History Medical History Relation Name Comments No Known Problems Brother No Known Problems Daughter Asthma Father COPD Father Hypertension Father No Known Problems Maternal Grandfather Dementia Maternal Grandmother Hypertension Maternal Grandmother Arthritis Mother Asthma Mother Dementia Mother Heart disease Mother Hypertension Mother No Known Problems Other No Known Problems Paternal Grandfather No Known Problems Paternal Grandmother Relation Name Status Comments Brother Alive Daughter Alive Father Alive Maternal Grandfather Maternal Grandmother Mother Alive Other Paternal Grandfather Paternal Grandmother Social History Tobacco Use Types Packs/Day Years Used Date Smoking Tobacco: Never AUDIT-C Answer Date Recorded Q1: How often do you have a drink containing alc ohol? Never 08/26/2021 Average Number of Drinks Not on file 022 Frequency of Binge Drinking Not on file 08/07 PHQ-2 Answer Date Recorded PHQ-2 Total Score (If total score is 3 or more points, staff should administer the PHQ-9) 0 08/26/2021 Personal Safety Answer Date Recorded Getting School Help Needed Not on file 06/10 Comments No Sex and Gender Information Value Date Recorded Sex Assigned at Not on file Legal Sex Female [address] [employer] [address] Gender Identity Not on file Sexual Orientation Not on file Obstetrics History Last Filed Vital Signs Vital Sign Reading Time Taken Comments Blood Pressure 130/72 08/26/2021 9:05 AM CDT Pulse 86 08/26/2021 9:05 AM CDT Temperature 36.1 C (97 F) 08/26/2021 9:05 AM CDT Respiratory Rate 16 08/26/2021 9:05 AM CDT Oxygen Saturation - - Inhaled Oxygen Concentration - - Weight 93.1 kg (205 lb 3.2 oz) 08/26/2021 9:05 A M CDT Height 154.9 cm (5' 1 ) 08/26/2021 9:05 AM CDT Body Mass Index 38.77 08/26/2021 9:05 AM CDT Plan of Treatment Health Maintenance Due Date Last Done Comments Breast Cancer Screening-Mammogram 1980 Hepatitis C Screening 1980 DTaP/Tdap/Td Vaccine (1 - Tdap) 1991 Varicella Vaccines (1 of 2 - 13+ 2-dose series) 1993 Regular Well Visit/Exam 18-64 1998 Depression Screening 08/26/2022 08/26/2021 Covid-19 Vaccine ( season) 2024 09/03/2020, 08/13/2020 Influenza Vaccine (#1) 2024 Hepatitis B Screening Completed 03/17/2012 Cervical Cancer Screening Discontinued 04/15/2021 HPV Vaccines Aged Out No longer eligi ble based on patient's age to complete this topic Pneumococcal vaccine <65 Aged Out No longer eligible based on patient's age to complete this topic Procedures Procedure Name Priority Date/Time Associated Diagnosis Comments HM PAP SMEAR WITH HPV Routine 04/15/2021 from Last 3 Months or Most Recently Relevant to Health Maintenance Results * HM PAP SMEAR WITH HPV (04/15/2021) us Historical Provider HEALTH MAINTENANCE Final Result from Last 3 Months or Most Recently Relevant to Health Maintenance Insurance [facility] cVidya ACCESS [facility] Care Teams Vacuum Evaporation Operator Relationship Specialty Start Date End Date Shante Flower MD [address] [place] [id number] PCP - General Family Medicine 07/31/21
--- OUTSIDE RECORDS SUMMARY | 2024-08-03 11:51 | XMS_ITS | Clinical Summary ---
Author Organization [facility] Address [address] [place] [address] Care Team Providers Care Guest Service Agent Name Role Phone Unavailable Primary Care Provider Unavailabl e Social History Tobacco Use Types Packs/Day Years Used Date Smoking Tobacco: Never Assessed Comments Unknown Sex and Gender Information Value Date Recorded Sex Assigned at Not on file Legal Sex Female 2:46 PM SOLAR ENGINEER Gender Identity Not on file Sexual Orientation Not on file Plan of Treatment Health Maintenance Due Date Last Done Comments Hepatitis C Virus (HCV) Screening 1980 TdaP Immunization 1980 Hepatitis B Immunization (1 of 3 - 19+ 3-dose series) 1999 Pap Smear 2001 Cervical Cancer Screening (CCS) 2010 HPV/Cotest 2010 Discussion re Starting/Frequ ency of Mammograms 2020 Influenza Immunization (#1) 2024 SARS-COV-2 Immunization ( season) 2024 Respiratory Syncytial Virus (RSV) Immunization (Adult) (1 - 1-dose 75+ series) 2055 Meningococcal Immunization (ACWY) Aged Out No longer eligible based on patient's age to complete this topic Pneumococcal Immunization Combined Aged Out No longer eligible based on patient's age to complete this topic Rotavirus Immunization Aged Out No lo nger eligible based on patient's age to complete this topic
--- OUTSIDE RECORDS SUMMARY | 2024-08-03 11:51 | XMS_ITS | Clinical Summary ---
Author Organization [facility] Address [address] [facility] [place] [address] Care Team Providers Care Kiln Repairer Name Role Phone Unavailable Primary Care Provider Unavailabl e Allergies Active Allergy Reactions Criticality Noted Date Comments Betadine Surgi-Prep Other (See Comments) High 2021 Skin with blisters Betaine Itching,Rash Medium 03/17/2023 Povidone-Iodine Other (See Comments) High 04/07/2022 Skin with blisters Medications Cholecalciferol, Vitamin D3, 50 mcg (2,000 unit) CapsuleIndicatio ns:Malignant neoplasm of upper-outer quadrant of right breast in female, estrogen receptor negative (CMS/HCC) Take 2,000 Units by mouth daily. Supp 90 Capsule 5 04/07/2023 Active cyanocobalamin (VITAMIN B-12) 100 mcg tablet Take 100 mcg by mouth daily. Active oxyBUTYnin (DITROPAN XL) 5 mg Extended Release 24 hour tablet Take 1 Tablet by mouth daily. 05/10/2024 Active Active Problems Patient Care Coordination No te Formatting of this note migh t be different from the original. Primary Care: No primary care provider on file. Referring Provider: No referring provider defined for this encounter. Other: Dr. Gosia Mendez MD Problem Noted Date Diagnosed Date S/P partial mastectomy, right 12/03/2023 Heterogeneously dense tissue of both breasts on mammography 12/03/2023 Lymphedema of breast 08/11/2023 History of right breast cancer 05/28/2023 S/P partial mastectomy, left 05/28/2023 Triple negative breast cancer 04/22/2022 Malignant neoplasm of upper- outer quadrant of right breast in female, estrogen receptor negative 04/07/2022 Cancer Staging:Pathologic stage from 05/26/2022:Stage IB(pT1c, pN0(sn), cM0, G3, ER-, MI-, HER2-) - Signed by Gosia Mendez MD on 07/03/2022 Secondary hypercoagulable state 01/10/2022 Encounters Date Type Department Care Team Description 08/02/2024 External Device Data [facility] ABSTRACTION Provider, Abstract 07/27/2024 External Device Data [facility] ABSTRACTION Provider, Abstract 07/12/2024 External Device Data [facility] ABSTRACTION Provider, Abstract 06/30/2024 External Device Data [facility] ABSTRACTION Provider, Abstract 05/25/2024 Telephone [facility] Radiation Therapy [address] [place] [address] Socrates Falk MD Imaging Results 05/24/2024 9:45 AM ORTHOPEDIC CAST SPECIALIST Office Visit [facility] Breast Surgery Chrissy Mark [address] [facility] [address] [place] [address] Socrates Falk MD Hoffman, Abigail Weil, MD History of right breast cancer (Primary Dx); S/P partial mastectomy, right; Lymphedema of breast 05/24/2024 9:00 AM ORTHOPEDIC CAST SPECIALIST - 05/24/2024 11:59 PM ORTHOPEDIC CAST SPECIALIST Hospital Encounter [facility] [address] [place] [address] Socrates Falk MD Hoffman, Abigail Weil, MD Discharge Disposition: Home or Self Care 05/10/2024 External Device Data [facility] ABSTRACTION Provider, Abstract from Last 3 Months Family History Medical History Relation Name Comments Breast Cancer Maternal Cousin Dementia Mother Carmen Heart Disease Mother Carmen Relation Name Status Comments Brother Alive Father Maternal Cousin Mother Carmen Alive Sister 1 Alive Sister 2 Alive Sister 3 Alive Sister 4 Alive Social History Tobacco Use Types Packs/Day Years Used Date Smoking Tobacco: Never Passive Smoke Exposure: Past Smokeless Tobacco: Never Tobacco Cessation:Counseling Given: Not Answered Alcohol Use Standard Drinks/Week Comments Not Currently 0 (1 standard drink = 0.6 oz pur e alcohol) 0-1/MONTH Feeling Safe Answer Date Recorded Are you in a relationship wi th someone who hurts you emotionally and/or physically? Unable to obtain 07/17/2023 Comments No Sex and Gender Information Value Date Recorded Sex Assigned at Not on file Legal Sex Female 10:17 AM CDT Gender Identity Not on file Sexual Orientation Not on file Last Filed Vital Signs Vital Sign Reading Time Taken Comments Blood Pressure 110/68 05/24/2024 9:46 AM ORTHOPEDIC CAST SPECIALIST Pulse 100 04/06/2024 11:43 AM CDT Temperature 36 C (96.8 F) 04/06/2024 11:43 AM CDT Respiratory Rate 14 04/06/2024 11:43 AM CDT Oxygen Saturation 98% 12/24/2023 9:44 AM CDT Inhaled Oxygen Concentration - - Weight 99.3 kg (219 lb) 05/24/2024 9:46 AM ORTHOPEDIC CAST SPECIALIST Height 154.9 cm (5' 1 ) 05/24/2024 9:46 AM ORTHOPEDIC CAST SPECIALIST Body Mass Index 41.38 05/24/2024 9:46 AM ORTHOPEDIC CAST SPECIALIST Plan of Treatment Upcoming Encounters Date Type Department Care Team (Late st Contact Info) Description 08/09/2024 2:45 PM ORTHOPEDIC CAST SPECIALIST Office Visit [facility] Oncology and Hematology - [place] [address] [place] [address] [facility] [address] [place] [address] Durga Roberson MD [address] [facility] [address] [place] [address] 12/05/2024 10:30 AM CDT Appointment [facility] [address] [place] [address] [place] [address] [address] [facility] [address] [place] [address] 05/25/2025 1:00 PM ORTHOPEDIC CAST SPECIALIST Appointment [facility] [address] [place] [address] [place] [address] [address] [facility] [address] [place] [address] 05/25/2025 2:00 PM ORTHOPEDIC CAST SPECIALIST Office Visit [facility] Breast Surgery [address]y [address] [address] [facility] [address] [place] [address] [place] [address] [facility] [address] [place] [address] Health Maintenance Due Date Last Done Comments Pre-Diabetes and Diabetes Screening 1980 DTAP/TDAP/TD VACCINES (1 - Tdap) 1999 HEPATITIS B VACCINES (2 of 3 - Hep B Twinrix 3-dose series) 04/14/2012 03/17/2012 INFLUENZA VACCINE (#1) 2024 Preventative Visit- Commercial 06/08/2024 05/10/2024, 04/21/2023, 04/17/2022, Additional history exists BREAST CANCER SCREENING 05/24/2025 05/24/20 24, 05/18/2023, 05/13/2022, Additional history exists CERVICAL CANCER SCREENING 05/10/20272023, 04/21/2023, 04/17/2022 HPV VACCINES Aged Out No longer eligi ble based on patient's age to complete this topic Medical Devices Implanted Type Area Flight Nurse Device Identifier Shelf Expiration Date Model / Serial / Lot Kitchen Porter Clip Surgiclip Ii Shivam 9.75in [id number] - [id number] Implanted:Qty : 1 on 05/26/2022 by Gosia Mendez MD at [facility] Clip Right: Breast [employer] - [employer]EN [id number] 02/05/2027 [id number] / / [id number] Hemostatic Surgicel 2x14in 1950 - [id number] Implanted:Qty : 1 on 05/26/2022 by Gosia Mendez MD at [facility] Hemostatic Right: Breast [employer] [id number] 07/08/20261950 / / [id number] Hemostatic Surgicel 2x14in 1950 - [id number] Implanted:Qty : 1 on 06/14/2022 by Gosia Mendez MD at [facility] Hemostatic Right: Breast [employer] [id number] 12/05/20261950 / / [id number] Explanted Type Area Flight Nurse Device Identifier Shelf Expiration Date Model / Serial / Lot Port Powerport Clearvue 8fr Mri [id number] - [id number] Implanted:Qty : 1 on 05/26/2022 by Gosia Mendez MD at [facility] Explanted:Qty : 1 on 07/17/2023 at [facility] Port Right: Chest BARD ELEAZAR VASC [id number] 09/06/2023 [id number] / / [id number] Procedures Procedure Name Priority Date/Time Associated Diagnosis Comments MAMMO 3D SHERINE DIAGNOSTIC BILAT W OR WO CAD Routine 05/24/2024 9:31 AM ORTHOPEDIC CAST SPECIALIST Encounter for follow-up surveillance of breast cancer from Last 3 Months Results * MAMMO DIAG BILAT 3D SHERINE W OR WO CAD (05/24/2024 9:31 AM ORTHOPEDIC CAST SPECIALIST) Anatomical Region Laterality Modality Breast Bilateral Mammography 05/24/2024 9:32 AM ORTHOPEDIC CAST SPECIALIST Impressions 05/24/2024 10:32 AM ORTHOPEDIC CAST SPECIALIST IMPRESSION: 1. Stable postoperative and posttreatment changes in the right breast. 2. No mammographic evidence of malignancy in either breast. Routine screening mammography is recommended in one year. OVERALL FINAL ASSESSMENT: BI-RADS CATEGORY 2 - Benign. The patient was notified of the findings and recommendations at the time of the examination. DICTATION LOCATION: [facility] Narrative 05/24/2024 10:32 AM ORTHOPEDIC CAST SPECIALIST EXAMINATION: MAMMO 3D SHERINE DIAGNOSTIC BILAT W OR WO CAD DATE: 05/24/2024 9:31 AM HISTORY: 43-year-old woman with personal history of right breast cancer status post breast conservation therapy. COMPARISON: 05/18/2023, 05/26/2022, 05/13/2022, 03/27/2022. TECHNIQUE: Bilateral diagnostic mammogram was performed. Full field digital mammograms, and digital breast tomosynthesis with C-view performed. Examination is read in conjunction with computer aided detection. BREAST COMPOSITION: There are scattered areas of fibroglandular density. FINDINGS: There are expected postoperative changes of breast conservation therapy in the upper outer right breast at posterior depth. Unchanged skin thickening of the right breast related to posttreatment changes. The port catheter previously seen in the upper right breast at posterior depth has been removed in the interval. A biopsy marker clip is unchanged in the left breast. There are a few unchanged benign microcalcifications. There is no new suspicious finding in either breast on mammogram. Computer aided detection was used in the interpretation of this examination. Procedure Note Michele Lucero MD - 05/24/2024 EXAMINATION: MAMMO 3D SHERINE DIAGNOSTIC BILAT W OR WO CAD DATE: 05/24/2024 9:31 AM HISTORY: 43-year-old woman with personal history of right breast cancer status post breast conservation therapy. COMPARISON: 05/18/2023, 05/26/2022, 05/13/2022, 03/27/2022. TECHNIQUE: Bilateral diagnostic mammogram was performed. Full field digital mammograms, and digital breast tomosynthesis with C-view performed. Examination is read in conjunction with computer aided detection. BREAST COMPOSITION: There are scattered areas of fibroglandular density. FINDINGS: There are expected postoperative changes of breast conservation therapy in the upper outer right breast at posterior depth. Unchanged skin thickening of the right breast related to posttreatment changes. The port catheter previously seen in the upper right breast at posterior depth has been removed in the interval. A biopsy marker clip is unchanged in the left breast. There are a few unchanged benign microcalcifications. There is no new suspicious finding in either breast on mammogram. Computer aided detection was used in the interpretation of this examination. IMPRESSION: 1. Stable postoperative and posttreatment changes in the right breast. 2. No mammographic evidence of malignancy in either breast. Routine screening mammography is recommended in one year. OVERALL FINAL ASSESSMENT: BI-RADS CATEGORY 2 - Benign. The patient was notified of the findings and recommendations at the time of the examination. DICTATION LOCATION: [facility] Socrates Falk MD MAMMO ORDERABLES Final Result from Last 3 Months Insurance BCBS BLUE ACCESS/TRUE BLUE PPO CIGNA OPEN ACCESS HMO RX [facility] [employer] RX [employer] RX Member Subscriber Plan / Payer (Ef fective 2023-Present) Name:LUIS ENRIQUE COLON Relation to Subscriber:Self Name:LUIS ENRIQUE COLON Subscriber ID:Not on file Payer ID:Not on file Type:RX Commercial Address: [facility] BLUE ACCESS/TRUE BLUE PPO [facility] OPEN ACCESS HMO
--- OUTSIDE RECORDS SUMMARY | 2024-08-03 11:51 | XMS_ITS | Referral Summary ---
Author Organization [facility] [employer] Address [address] [place] [address] Care Team Providers Care Drafter Detail Name Role Phone Gian He MD Primary Care Provider [phone] [facility],non-owned Affiliates and Associated Physician Practices is amultiple site organization consisting of ambulatory clinics and hospital sitesin [place], [place], [place] and [place]. This disclosure is being madepursuant to the Care Everywhere program and may not contain all information available regarding this patient. Last updated 18.[facility] [employer] Allergies Active Allergy Reactions Criticality Noted Date Comments Betaine Itching,Rash Medium 03/17/2023 Medications * Be aware that medications may not be up to date on this document. Alwaysverify current medications with the patient. Medication Sig Dispensed Refills Start Date End Date Status oxycodone-acetaminophe n (PERCOCET) 5-325 MG tablet Take 1 Tab by mouth every 4 hours as needed for Pain. 20 Tab 0 02/06/2012 Active cyanocobalamin 100 MCG tablet Take 1 (one) tablet by mouth once daily Active hydroCHLOROthiazide (Hydrodiuril) 25 MG tablet Take 1 (one) tablet by mouth once daily 09/06/2023 Active Active Problems No known active problems Social [...] Mass Index 41.19 09/17/2023 10:46 AM CDT Plan of Treatment Not on file Procedures Procedure Name Priority Date/Time Associated Diagnosis Comments COMPREHENSIVE METABOLIC PANEL STAT 02/06/2012 5:45 PM CDT from Last 3 Months or Most Recently Relevant to Health Maintenance Results * (ABNORMAL) COMPREHENSIVE METABOLIC PANEL (02/06/2012 5:45 PM CDT) Sodium 142 136 - 145 mmol/L [facility] Potassium 3.5 3.5 - 5.1 mmol/L [facility] Chloride 108(H) 98 - 107 mmol/L [facility] BUN 13 7 - 21.0 mg/dl [facility] Creatinine 0.70 0.5 - 1.3 mg/dl [facility] Glucose 57(L) 65 - 105 mg/dl [facility] Calcium 8.9 8.5 - 10.1 mg/dl [facility] Alkaline Phosphatase 54 38 - 126 U/L [facility] AST 10 5.0 - 40 U/L [facility] Bilirubin Total 0.3 0.2 - 1.0 mg/dl [facility] Protein Total 7.2 6.4 - 8.2 gm/dl [facility] Albumin 3.6 3.4 - 5.0 gm/dl [facility] CO2 23 22 - 30 mmol/L [facility] ALT 13 12.0 - 78.0 U/L [facility] eGFR by MDRD >60 >60 mL/min/1.7 3m2 [facility] Comment eGFR [facility] Comment: The eGFR does not apply to patients who are younger than 18 or older than 70. Blood specimen (specimen) BLOOD SPECIMEN / Unknown 02/06/2012 5:45 PM CDT 02/06/2012 5:56 PM CDT Chanda Palomino SALVAGE ENGINEER-BLUNGER LOADER LAB - CHEMISTRY ORDERABLES [facility] [address] [place] [address] from Last 3 Months or Most Recently Relevant to Health Maintenance Care Teams Drafter Detail Relationship Specialty Start Date End Date Gian He MD [address] [facility] [place] [address] PCP - General 06/03/22
--- OUTSIDE RECORDS SUMMARY | 2024-08-03 11:51 | XMS_ITS | Clinical Summary ---
Author Organization [facility] Address [address] [place] [address] Care Team Providers Care Weaver Hand Name Role Phone Unavailable Primary Care Provider Unavailabl e Allergies Active Allergy Reactions Criticality Noted Date Comments Betaine Itching,Rash Medium 03/17/2023 Povidone-Iodine Other High 04/07/2022 Skin with blisters Medications cholecalcifero l (VITAMIN D-3) 50 mcg (2,000 unit) capsule Take 2,000 Units by mouth 1 (one) time each day. 3 Active cyanocobalamin (VITAMIN B-12) 100 mcg tablet Take 100 mcg by mouth 1 (one) time each day. Active ergocalciferol (VITAMIN D-2) 1,250 mcg (50,000 unit) capsule ergocalciferol (vitamin D2) 1,250 mcg (50,000 unit) capsule TAKE 1 CAPSULE BY MOUTH EVERY WEEK WITH MEALS Active hydroCHLOROthi azide (HYDRODIURIL) 25 mg tablet Take 25 mg by mouth 1 (one) time each day. 4 Active prednisoLONE acetate (PRED FORTE) 1 % ophthalmic suspension SEE ATTACHED DIRECTIONS 4 Active tobramycin (TOBREX) 0.3 % ophthalmic solution 4 Active topiramate (TOPAMAX) 25 mg tablet topiramate 25 mg tablet TAKE 1 TABLET BY MOUTH EVERY DAY Active Active Problems Problem Noted Date Diagnosed Date Heterogeneously dense tissue of both breasts on mammography 12/03/2023 Lymphedema of breast 08/11/2023 History of right breast cancer 05/28/2023 Triple negative breast cancer 04/22/2022 Malignant neoplasm of upper- outer quadrant of right breast in female, estrogen receptor negative 04/07/2022 Social History Tobacco Use Types Packs/Day Years Used Date Smoking Tobacco: Never Assessed Comments Unknown Sex and Gender Information Value Date Recorded Sex Assigned at Not on file Legal Sex Female 12:03 PM PDT Gender Identity Not on file Sexual Orientation Not on file Last Filed Vital Signs Vital Sign Reading Time Taken Comments Blood Pressure 140/82 01/21/2024 11:11 AM CDT Pulse - - Temperature - - Respiratory Rate - - Oxygen Saturation - - Inhaled Oxygen Concentration - - Weight - - Height - - Body Mass Index - - Plan of Treatment Health Maintenance Due Date Last Done Comments Periodontal Maintenance 1980 Dental Oral Exam 07/24/2024 01/21/2024 Dental X-Ray: Bitewings 07/24/2024 01/21/2024 Scaling and Root Planing 02/03/2026 024, 01/21/2024, 01/21/2024, Additional history exists Dental X-Ray: Full Mouth 01/21/2027 01/21/2024 Dental X-Ray: Panoramic 01/21/2027 01/21/2024 Meningococcal B Vaccine Aged Out No l onger eligible based on patient's age to complete this topic Procedures Procedure Name Priority Date/Time Associated Diagnosis Comments LR PERIODONTAL SCALING AND ROOT PLANING - FOUR OR MORE TEETH PER QUADRANT Routine 01/21/2024 11:00 AM CDT PANORAMIC RADIOGRAPHIC IMAGE Routine 01/21/2024 8:00 AM CDT INTRAORAL - COMPREHENSIVE SERIES OF RADIOGRAPHIC IMAGES Routine 01/21/2024 8:00 AM CDT COMPREHENSIVE ORAL EVALUATION - NEW OR ESTABLISHED PATIENT Routine 01/21/2024 8:00 AM CDT Encounter for dental examination and cleaning without abnormal findings from Last 3 Months or Most Recently Relevant to Health Maintenance Insurance [facility] PPO
--- OUTSIDE RECORDS SUMMARY | 2024-08-03 11:51 | XMS_ITS | Referral Summary ---
Author Organization [address] Address [address] [place] [address] Care Team Providers Care Gallery Director Name Role Phone Shante Flower MD Primary [...] Unspecified 03/08/2021(Deferr ed: Patient Refused),03/08/2020(Deferred: Patient Refused) Social History Tobacco Use Types Packs/Day Years [...] on file Legal Sex Female 2:36 PM GAS STATION SUPERVISOR Gender Identity Not on file Sexual Orientation [...] 08/26/2021 9:05 AM CDT Plan of Treatment Not on file Procedures Procedure Name Priority Date/Time Associated Diagnosis Comments HM PAP SMEAR WITH HPV Routine 04/15/2021 from Last 3 Months or Most Recently Relevant to Health Maintenance Results * HM PAP SMEAR WITH HPV (04/15/2021) us Historical Provider HEALTH MAINTENANCE Final Result from Last 3 Months or Most Recently Relevant to Health Maintenance [place] [id number] OPEN ACCESS Care Teams Gallery Director Relationship Specialty Start Date End Date Shante Flower MD [address] [place] [address] PCP - General Family Medicine 07/31/21
--- OUTSIDE RECORDS SUMMARY | 2024-08-03 11:51 | XMS_ITS | Clinical Summary ---
Author Organization [facility] [employer] Address [address] [place] [address] Care Team Providers Care Fiscal Specialist Name Role Phone Gian He MD Primary Care Provider [phone] Source Comments [facility] [employer],non-owned Affiliates and Associated Physician Practices is amultiple site organization consisting of ambulatory clinics and hospital sitesin [place], [place], [place] and [place]. This disclosure is being madepursuant to the Care Everywhere program and may not contain all information available regarding this patient. Last updated 18.[facility] [employer] Allergies Active Allergy Reactions Criticality Noted Date [...] 09/17/2023 10:46 AM CDT Plan of Treatment Health Maintenance Due Date Last Done Comments LIPID TESTING 1980 HIV SCREENING 1995 HEPATITIS C SCREENING 03/03/1998 DTAP/TDAP/TD VACCINES (1 - Tdap) 1999 HEPATITIS B VACCINE (1 of 3 - 19+ 3-dose series) 1999 SCREENING FOR DIABETES 09/17/2023 02/06/2012 COVID-19 VACCINE (3 - 2023-2 5 season) 2024 09/03/2020, 08/13/2020 INFLUENZA VACCINE (#1) 2024 DEPRESSION SCREENING 06/08/2024 MAMMOGRAM 05/18/2025 05/18/2023 PAP SMEAR 04/21/2026 04/21/2023 ZOSTER VACCINE (1 of 2) 2030 HIB VACCINE Aged Out No longer eligi ble based on patient's age to complete this topic HPV VACCINE Aged Out No longer eligi ble based on patient's age to complete this topic MENINGOCOCCAL (Group B) VACCINE Aged Out No longer eligible b ased on patient's age to complete this topic MENINGOCOCCAL VACCINE Aged Out No raul juancho eligible based on patient's age to complete this topic PNEUMOCOCCAL VACCINE Aged Out No long er eligible based on patient's age to complete this topic Procedures Procedure Name Priority Date/Time Associated Diagnosis Comments COMPREHENSIVE METABOLIC PANEL STAT 02/06/2012 5:45 PM CDT from Last 3 Months or Most Recently Relevant to Health Maintenance Results * (ABNORMAL) COMPREHENSIVE METABOLIC PANEL (02/06/2012 5:45 PM CDT) Sodium 142 136 - 145 mmol/L [facility] Potassium 3.5 3.5 - 5.1 mmol/L [facility] Chloride 108(H) 98 - 107 mmol/L [facility] BUN 13 7 - 21.0 mg/dl [facility] Creatinine 0.70 0.5 - 1.3 mg/dl [facility] Glucose 57(L) 65 - 105 mg/dl [facility] Calcium 8.9 8.5 - 10.1 mg/dl [facility] Alkaline Phosphatase 54 38 - 126 U/L [facility] AST 10 5.0 - 40 U/L [facility] Bilirubin Total 0.3 0.2 - 1.0 mg/dl [facility] Protein Total 7.2 6.4 - 8.2 gm/dl [facility] Albumin 3.6 3.4 - 5.0 gm/dl [facility] CO2 23 22 - 30 mmol/L [facility] ALT 13 12.0 - 78.0 U/L [facility] eGFR by MDRD >60 >60 mL/min/1.7 3m2 [facility] Comment eGFR [facility] Comment: The eGFR does not apply to patients who are younger than 18 or older than 70. Blood specimen (specimen) BLOOD SPECIMEN / Unknown 02/06/2012 5:45 PM CDT 02/06/2012 5:56 PM CDT Chanda Palomino CITY RECORDER-KETTLE FIRER LAB - CHEMISTRY ORDERABLES [facility] [address] [place] [address] from Last 3 Months or Most Recently Relevant to Health Maintenance Care Teams Fiscal Specialist Relationship Specialty Start Date End Date Gian He MD [address] [place] [address] [address] [place] [address] PCP - General 06/03/22
--- OUTSIDE RECORDS SUMMARY | 2024-08-03 11:51 | XMS_ITS | Encounter Summary ---
Author Organization [facility] Address [address] [place] [address] Care Team Providers Care Bladder Cleaner Name Role Phone Unavailable Primary Care Provider Unavailabl e Encounter Details Date Type Department Care Team (Late Contact Info) Description 08/02/2024 External Device Data ST[place] ABSTRACTION Provider, Abstract NO ADDRESS ON FILE Social History Tobacco Use Types Packs/Day Years Used Date Smoking Tobacco: Never Passive Smoke Exposure: Past Smokeless Tobacco: Never Alcohol Use Standard Drinks/Week Comments Not Currently [...] as of this encounter Plan of Treatment Upcoming Encounters Date Type Department Care Team (Late Contact Info) Description 08/09/2024 2:45 PM SOFTWARE REVERSE ENGINEER Office Visit [facility] Oncology and Hematology - [place] [place] [address] Durga Roberson MD [address] [facility] [address] [place] [address] 12/05/2024 10:30 AM CDT Appointment [facility] Chrissy Flores [address] [place] [address] [place] [address] [facility] [address] [place] [address] 05/25/2025 1:00 PM SOFTWARE REVERSE ENGINEER Appointment [facility] Chrissy Flores [address] [place] [address] [place] [id number] [address] 05/25/2025 2:00 PM SOFTWARE REVERSE ENGINEER Office Visit [facility] Breast Surgery Chrissy Flores [address] [facility] [address] [place] [address] [place] [address] [facility] [address] [place] [address] documented as of this encounter Visit Diagnoses Not on filedocumented in this encounter
[2024-08-04 10:49] LABS: CA 15-3 5 U/mL (<32)
== END 2024-08-03 10:24 | disposition home or self-care (01) ==
PROVIDERS: PCP Emergency Medicine; Visit Provider Internal Medicine Hematology & Oncology
DX: C50.411 Malignant neoplasm of upper-outer quadrant of right female breast (principal); Z17.1 Estrogen receptor negative status [ER-]
CPT/HCPCS: 36415; 80053; 85025; 86300

== ENCOUNTER 2024-09-28 19:43 | Emergency (ER) | payer BC, SELFPAY ==
--- NOTE | 2024-09-28 19:46 | ED.URI ---
HPI - URI/Sore Throat General Chief Complaint: Upper Respiratory Infection Stated Complaint: ITCHY THROAT Time Seen by Provider: 09/28/24 19:47 Source: patient Mode of arrival: ambulatory Limitations: no limitations History of Present Illness HPI Narrative: Marvin is a 44-year-old female patient presenting to the clinic with complaints of postnasal drip, runny nose, and itchy/scratchy throat that started last night. Has taken [id number]-[id number] Mucinex for her symptoms. No fevers, chills, body aches. Denies any chest pain or shortness of breath. Related Data Home Medications ?Medication ?Instructions ?Recorded ?Confirmed ?Last Taken ?Type ergocalciferol (vitamin D2) 1,250 09/28/24 Unknown History mcg (50,000 unit) capsule Allergies Allergy/AdvReac Type Severity Reaction Status Date / Time povidone-iodine (From Allergy Rash Verified 09/28/24 19:52 Betadine) Review of Systems Review of Systems: Pertinent positives per HPI. Patient denies any fever, chills, rash, headache, visual changes, dizziness, cough, shortness of breath, chest pain, palpitations, nausea, vomiting, diarrhea, constipation, abdominal pain, or any urinary issues. [facility] Past Medical History Medical History Breast CA Morbid obesity Surgical History Surgical History History of hysterectomy Social History Social History Smoking packs per day: 0.5 Smoking cigarettes per day: 10.0 Years smoked: 3 Smoking pack-years: 1.50 Smoking status: Current every day smoker Tobacco type: cigarettes Additional smoking assessment comments: 3 cigarettes a day x 2 years Alcohol use details: socially Living arrangements: with family Spiritual care concerns: No Comments At the time of my signature, I reviewed and agree with the nursing past medical, surgical, social, and family history. There is no relevant family history pertinent to the patient complaint. Exam Narrative: General: Well-developed, well nourished, in no apparent distress Head: Normocephalic, atraumatic Eyes: Pupils equally round and reactive to light bilaterally, EOM intact, sclera and conjunctive clear, no discharge, lids normal Ears: TMs intact and congested, ear canals clear, no drainage, grossly hearing normal. Nose: Nares patent, clear nasal discharge, moderate inflammation, no sinus tenderness. Mouth: Oral pharynx without lesions or masses, good dentition, MMM. Postnasal drip Neck: Supple, trachea midline, no enlargement of anterior or posterior cervical nodes, no thyroid masses or goiter palpable. Cardio: Regular rate and rhythm, s1 and s2 normal, no murmur appreciated. Resp: Clear to auscultation bilaterally, no rhonchi, rales, wheezing or rubs Course Course Emergency Course: Portions of this record may have been created with voice recognition software. Level of Care: Express Care Visit Vital Signs Vital signs: Vital Signs Temperature 37.1 C 09/28/24 19:52 Pulse Rate 86 09/28/24 19:52 Respiratory Rate 16 09/28/24 19:52 Blood Pressure 132/91 H 09/28/24 19:52 Pulse Oximetry 98 09/28/24 19:52 Temperature 37.1 C 09/28/24 19:52 Pulse Rate 86 09/28/24 19:52 Respiratory Rate 16 09/28/24 19:52 Blood Pressure 132/91 H 09/28/24 19:52 Pulse Oximetry 98 09/28/24 19:52 Vital signs reviewed MDM - URI/Sore Throat MDM Narrative Medical decision making narrative: At the time of visit patient is resting comfortably on the exam table. Patient appears to be nontoxic. Labs: COVID testing was negative in the clinic today. Plan: I suspect patient has allergic rhinitis with postnasal drip. Supportive measures were discussed with the patient and they voiced understanding discharge instructions and agrees to treatment plan. Return precautions reviewed Differential Diagnosis Differential diagnosis: Likely upper respiratory infection, otitis media, sinusitis, viral infection, bronchitis, influenza, pharyngitis and other (COVID) Discharge Plan Discharge Clinical Impression: Allergic rhinitis with postnasal drip Patient Disposition: Home Condition: Stable Instructions: Antibiotic Form, Postnasal Drip (DC) Additional Instructions: COVID testing was negative Increase fluids and stay well hydrated Tylenol/motrin for pain/fever Flonase and OTC antihistamines as directed Vicks vapor rub to open sinuses Sinus rinses for congestion Cepacol spray, cough drops, throat lozenges, warm tea with honey/lemon, gargle salt water to soothe throat BRAT diet for diarrhea Clear liquids x 24 hours then advance as tolerated for nausea/vomiting Go to the ED if you develop a worsening in your condition- high fever not controlled by Tylenol or Motrin, dehydration, weakness, lethargy, shortness of breath, or chest pain. Follow up with your PCP in 3-5 days if symptoms persist. Patient Language: Slovak Prescriptions: No Action fluticasone propionate [Flonase Allergy Relief] 50 mcg/actuation spray,suspension 1 spray intranasal BID Qty: 16 0RF Rx Instructions: administer into each nostril albuterol sulfate 90 mcg/actuation HFA aerosol inhaler 2 puff inhalation Q4-6H PRN (Reason: shortness of breath or wheezing) 30 Days Qty: 8.5 0RF ergocalciferol (vitamin D2) 1,250 mcg (50,000 unit) capsule Follow-up/Referrals: Gian He MD [Primary Care Provider] - Time of Disposition: 20:04 Quality NIHSS Nursing Documentation ED NIHSS nursing documentation: reviewed/agree
[2024-09-28 19:52] VITALS: BP 132/91; PULSE 86; RESP 16; TEMP 37.1; O2SAT 98
[2024-09-28 20:06] LABS: EDCOVIDSCREEN Negative (Negative)
== END 2024-09-28 20:06 | disposition home or self-care (01) ==
PROVIDERS: Emergency Provider Nurse Practitioner Family; PCP Emergency Medicine
DX: J30.9 Allergic rhinitis, unspecified (principal); R09.82 Postnasal drip; Z20.822 Contact with and (suspected) exposure to COVID-19; F17.210 Nicotine dependence, cigarettes, uncomplicated; E66.01 Morbid (severe) obesity due to excess calories; Z85.3 Personal history of malignant neoplasm of breast; Z68.39 Body mass index [BMI] 39.0-39.9, adult
CPT/HCPCS: 87426; 99212; G0463

== ENCOUNTER 2024-11-07 08:45 | Emergency (ER) | payer BC, SELFPAY ==
[2024-11-07 08:58] VITALS: BP 134/103; PULSE 91; RESP 18; TEMP 36.2; O2SAT 100
--- NOTE | 2024-11-07 09:04 | ED.GENADULT ---
HPI - General Adult General Chief complaint: Eye Problems Stated complaint: Eye Irritation Source: patient Mode of arrival: ambulatory Limitations: no limitations History of Present Illness HPI narrative: Patient is a 44 year old female who presents to the clinic with complaints of left eye redness and pain since yesterday. She states that she feels like a piece of hair is in her eye. Patient does endorse that her vision in the left eye seems to be more blurry, but her left eye is watering, so it is hard to distinguish. She also endorses having photosensitivity and foreign body sensation. Related Data Home Medications ?Medication ?Instructions ?Recorded ?Confirmed ?Last Taken ?Type ergocalciferol (vitamin D2) 1,250 50,000 unit PO WEEKLY 09/28/24 11/07/24 Unknown History mcg (50,000 unit) capsule weigth loss injection 11/07/24 Unknown History Allergies Allergy/AdvReac Type Severity Reaction Status Date / Time povidone-iodine (From Allergy Rash Verified 11/07/24 08:53 Betadine) Review of Systems Review of Systems: CONSTITUTIONAL: Denies body aches, fever, chills EYES: Endorses redness and pain to L?eye, FB sensation and photophobia. Denies visual changes. ENT: Denies rhinorrhea, congestion, sore throat, or otalgia. CARDIOVASCULAR: Denies chest pain, palpitations RESPIRATORY: Denies cough or dyspnea. GASTROINTESTINAL: Denies abdominal pain, nausea, vomiting, or diarrhea. SKIN: Denies rash, itching, or wounds. MUSCULOSKELETAL: Denies back pain, joint pain, or myalgia. NEUROLOGIC: Denies headache, numbness, tingling, or weakness. All systems reviewed & are unremarkable except as noted in HPI and below PMFSH Past Medical History Medical History Breast CA Morbid obesity Surgical History Surgical History History of hysterectomy Social History Social History Smoking packs per day: 0.5 Smoking cigarettes per day: 10.0 Years smoked: 3 Smoking pack-years: 1.50 Smoking status: Current every day smoker Tobacco type: cigarettes Additional smoking assessment comments: 3 cigarettes a day x 2 years Alcohol use details: socially Living arrangements: with family Spiritual care concerns: No Comments At time of signature, I have reviewed and agree with nursing past medical, surgical, social and family history unless otherwise noted. Please see nursing chart for further information. There is no relevant family history pertinent to the presenting complaint. Exam Narrative: GENERAL: Well-appearing HEAD: Normocephalic, atraumatic. EYES: ?L conjunctival injection, no eye lid swelling or redness.? EOMI. ?Lid eversion with no FB. Corneal ulcer noted with fletcher lamp. ENT: Mucous membranes pink and moist. ?No rhinorrhea. ?TMs normal bilaterally. ?Throat normal. Uvula midline. CHEST: ?Clear to auscultation. HEART: Regular rate and rhythm. ABDOMEN: Soft, nontender, nondistended SKIN: Warm, dry, no rash. ?Normal skin turgor. NEURO: No focal deficits. Alert and oriented x3 PSYCH: ?Normal affect. Course Course Level of Care: Express Care Visit Vital Signs Vital signs: Vital Signs Temperature 97.1 F L 11/07/24 08:58 Pulse Rate 91 11/07/24 08:58 Respiratory Rate 18 11/07/24 08:58 Blood Pressure 134/103 H 11/07/24 08:58 Pulse Oximetry 100 11/07/24 08:58 Oxygen Delivery Room Air 11/07/24 08:58 Temperature 97.5 F L 11/07/24 09:31 Pulse Rate 66 11/07/24 09:31 Respiratory Rate 16 11/07/24 09:31 Blood Pressure 178/75 H 11/07/24 09:31 Pulse Oximetry 97 11/07/24 09:31 Oxygen Delivery Room Air 11/07/24 09:31 Reviewed. Procedures FB Removal Eye Foreign Body #1: Foreign Body Removal Date: 11/07/24 Location: eye (L) Topical anesthetic used: tetracaine Foreign body: other (none noted on exam) Evidence of corneal penetration: Yes Technique: eye wash bottle Procedure performed under: other (fletcher lamp) Patient tolerated procedure: well and no complications Foreign Body Removal Narrative: L eye was anesthetized with 1 drop of tetracaine and anesthesia was achieved. The eye was flushed with eye wash. Lid was inverted and examined. Cornea was dyed with fluorescein and corneal ulcer noted over pupil in the center. Pt tolerated procedure well. Medical Decision Making MDM Narrative Medical decision making narrative: Discussed physical exam findings. Antibiotic given for corneal ulcer. Discussed in depth the need for her to follow up with Enterprise Application Architect today. Advised supportive measures and signs/symptoms to go to the ER. Pt is appropriate for outpatient treatment and follow up. Differential Diagnosis Differential Diagnosis: corneal abrasion, corneal ulcer, urticaria, angioedema, dermatitis, cellulitis, blepharitis, stye, dacryoadenitis, conjunctivitis, uveitis Vital Signs Vital Signs: Vital Signs Temperature 97.1 F L 11/07/24 08:58 Pulse Rate 91 11/07/24 08:58 Respiratory Rate 18 11/07/24 08:58 Blood Pressure 134/103 H 11/07/24 08:58 Pulse Oximetry 100 11/07/24 08:58 Oxygen Delivery Room Air 11/07/24 08:58 Temperature 97.5 F L 11/07/24 09:31 Pulse Rate 66 11/07/24 09:31 Respiratory Rate 16 11/07/24 09:31 Blood Pressure 178/75 H 11/07/24 09:31 Pulse Oximetry 97 11/07/24 09:31 Oxygen Delivery Room Air 11/07/24 09:31 Critical Care Time Critical Care Time Critical Care Time: No Discharge Plan Discharge Clinical Impression: Corneal ulcer Qualifiers: Laterality: left Qualified Code(s): H16.002 - Unspecified corneal ulcer, left eye Patient Disposition: Home Condition: Stable Instructions: Antibiotic Form, Corneal Ulcer (ED) Additional Instructions: Use eye drops as prescribed. You can wear sunglasses or stay in low light to avoid light sensitivity. Do not touch or rub your eye. Use over the counter lubricating eye drops as needed for irritation. Do not wear contact lenses until issue is resolved You may take Tylenol or ibuprofen for pain CALL TODAY for Follow-up with brake reliner [facility] [phone] [facility] [phone] [facility] [phone] [facility] [phone] Patient Language: Setswana Prescriptions: New ciprofloxacin HCl 0.3 % drops See Rx Instructions .ROUTE .COMPLEX Qty: 10 0RF Rx Instructions: 2 drp into left eye ;Instill 2 drops into affected eye every 15 minutes for the first 6 hours, then 2 drops into the affected eye every 30 minutes for the remainder of the first day. On day 2, instill 2 drops into the affected eye hourly. On days 3 to 14, instill 2 drops into affected eye every 4 hours. No Action weigth loss injection ergocalciferol (vitamin D2) 1,250 mcg (50,000 unit) capsule 50,000 unit PO WEEKLY Follow-up/Referrals: PHYSICIAN,LEARNING AND DEVELOPMENT INTERN [Primary Care Provider] - Stand Alone Forms: Work/School Release IP Time of Disposition: 09:41
[2024-11-07] MEDS: DACRIOSE EYE IRRIGATION 118 ML BOTTLE AFFCTD EYE (09:15)
[2024-11-07] MEDS: TETRACAINE HCL 0.5% OPHTH SOLN 4 ML BTL AFFCTD EYE (09:16)
[2024-11-07] MEDS: FLUORESCEIN SOD 1 MG/STRIP AFFCTD EYE (09:16)
[2024-11-07 09:31] VITALS: BP 178/75; PULSE 66; RESP 16; TEMP 36.4; O2SAT 97
== END 2024-11-07 09:45 | disposition home or self-care (01) ==
DX: H16.002 Unspecified corneal ulcer, left eye (principal); F17.210 Nicotine dependence, cigarettes, uncomplicated; E66.01 Morbid (severe) obesity due to excess calories; Z68.29 Body mass index [BMI] 29.0-29.9, adult; Z85.3 Personal history of malignant neoplasm of breast
CPT/HCPCS: 99213; A9270; G0463

== ENCOUNTER 2025-01-20 17:18 | Emergency (ER) | payer BC, SELFPAY ==
[2025-01-20 17:27] VITALS: BP 141/95; PULSE 79; RESP 16; TEMP 36.2; O2SAT 96
--- NOTE | 2025-01-20 18:03 | ED_ITS ---
HPI - Dental/Oral General Chief complaint: Dental/Oral Stated complaint: DENTAL PAIN Time Seen by Provider: 01/20/25 17:53 Source: patient and RN notes reviewed Mode of arrival: ambulatory Limitations: no limitations History of Present Illness HPI Narrative: Patient presents today complaining of left lower gum pain x2 days and believe she may have a dental issue, but cannot localize it to 1 tooth. This pain is k eeping her from sleep. She has tried some Orajel with only mild relief. She has a dental appointment set up in 4 days for follow-up. She had some bleeding coming from her gum area when applying the Orajel. Denies fever, facial swelling, shortness of breath Related Data Home Medications ?Medication ?Instructions ?Recorded ?Confirmed ?Last Taken ?Type ergocalciferol (vitamin D2) 1,250 50,000 unit PO WEEKLY 09/28/24 11/07/24 Unknown History mcg (50,000 unit) capsule Allergies Allergy/AdvReac Type Severity Reaction Status Date / Time povidone-iodine (From Allergy Rash Verified 01/20/25 17:46 Betadine) [facility] Past Medical History Medical History Breast CA Morbid obesity Surgical History Surgical History History of hysterectomy Social History Social History Smoking packs per day: 0.5 Smoking cigarettes per day: 10.0 Years smoked: 3 Smoking pack-years: 1.50 Smoking status: Current every day smoker Tobacco type: cigarettes Additional smoking assessment comments: 3 cigarettes a day x 2 years Alcohol use details: socially Living arrangements: with family Spiritual care concerns: No Comments At time of signature, I have reviewed and agree with nursing past medical, surgical, social and family history unless otherwise noted. Please see nursing chart for further information. There is no relevant family history pertinent to the presenting complaint Exam Narrative: GENERAL: Well-appearing, well-nourished, and in no acute distress. HEAD: Normocephalic, atraumatic. EYES: EOMI. No redness or drainage. Conjunctivae normal. ENT: Mucous membranes pink and moist. Patient has no obvious tenderness to the left upper or lower arch. Gums appear normal without obvious periapical abscess. No facial swelling noted. NECK: Normal AROM. Supple. No lymphadenopathy. CHEST: No respiratory distress. EXTREMITIES: Normal range of motion. No edema. SKIN: Warm, dry, no rash. Capillary refill normal. Normal skin turgor. NEURO: No focal deficits. Alert and oriented x3. Gait steady. PSYCH: Normal affect. No signs of depression or anxiety. Course Course Level of Care: Express Care Visit Vital Signs Vital signs: Vital Signs Temperature 97.2 F L 01/20/25 17:27 Pulse Rate 79 01/20/25 17:27 Respiratory Rate 16 01/20/25 17:27 Blood Pressure 141/95 H 01/20/25 17:27 Pulse Oximetry 96 01/20/25 17:27 Temperature 97.2 F L 01/20/25 17:27 Pulse Rate 79 01/20/25 17:27 Respiratory Rate 16 01/20/25 17:27 Blood Pressure 141/95 H 01/20/25 17:27 Pulse Oximetry 96 01/20/25 17:27 Reviewed MDM - Dental/Oral MDM Narrative Medical decision making narrative: 44-year-old female patient presents today complaining of left lower gumline pain that is keeping her from sleep x2 days. She has tried Orajel without improvement. Exam benign. Dental appointment in 4 days. Patient will be treated with a course of amoxicillin and diclofenac. Patient has not tried any NSAIDs for her discomfort. Vital signs stable. Patient agrees with plan. Differential Diagnosis Differential diagnosis: Likely gingival abscess, dental caries, toothache, dental abscess, fracture of tooth and other (Trigeminal neuralgia) Critical Care Time Critical Care Time Critical Care Time: No Discharge Plan Discharge Clinical Impression: Pain, dental Patient Disposition: Home Condition: Stable Instructions: Antibiotic Form, Toothache (ED) Additional Instructions: Please take the amoxicillin and diclofenac as directed. Follow-up with your dentist as scheduled. If your dentist does not find any issues with your teeth, please follow-up with your PCP for further evaluation. Patient Language: Chinese Prescriptions: New amoxicillin 875 mg tablet 875 mg PO Q12H 10 Days Qty: 20 0RF diclofenac sodium 50 mg tablet,delayed release (DR/EC) 50 mg PO TID PRN (Reason: pain) Qty: 20 0RF No Action ergocalciferol (vitamin D2) 1,250 mcg (50,000 unit) capsule 50,000 unit PO WEEKLY Follow-up/Referrals: Gian He MD [Primary Care Provider] - Time of Disposition: 18:08
== END 2025-01-20 18:20 | disposition home or self-care (01) ==
PROVIDERS: Emergency Provider Nurse Practitioner; PCP Emergency Medicine
DX: K08.89 Other specified disorders of teeth and supporting structures (principal); F17.210 Nicotine dependence, cigarettes, uncomplicated; E66.01 Morbid (severe) obesity due to excess calories; Z68.36 Body mass index [BMI] 36.0-36.9, adult; Z85.3 Personal history of malignant neoplasm of breast
CPT/HCPCS: 99213; G0463

== ENCOUNTER 2025-02-17 18:57 | Emergency (ER) | payer BC, SELFPAY ==
[2025-02-17 19:06] VITALS: BP 135/89; PULSE 82; RESP 16; TEMP 36.8; O2SAT 98
--- NOTE | 2025-02-17 20:25 | ED_ITS ---
HPI - Dental/Oral General Chief complaint: Dental/Oral Stated complaint: TOOTHACHE Time Seen by Provider: 02/17/25 19:25 Source: patient and RN notes reviewed Mode of arrival: ambulatory Limitations: no limitations History of Present Illness HPI Narrative: 44-year-old female presents to the [facility] complaining of Dental pain for the last few weeks. Patient has appointment with a academic vice president on Thursday. [place] ent saw her dentist was given a course of Augmentin states she was not given anything for pain. Patient is not taking anything for pain for dental pain. Patient reports pain to her left lower mouth. Patient denies any fevers, nausea, vomiting, difficulty breathing, difficulty clearing secretions, trismus, difficulty swallowing, or any other symptoms. Related Data Home Medications ?Medication ?Instructions ?Recorded ?Confirmed ?Last Taken ?Type ergocalciferol (vitamin D2) 1,250 50,000 unit PO WEEKL Y 09/28/24 11/07/24 Unkno wn History mcg (50,000 unit) capsule Allergies Allergy/AdvReac Type Severity Reaction Status Date / Time povidone-iodine (From Allergy Rash Verified 02/17/25 19:41 Betadine) Review of Systems Review of Systems: CONSTITUTIONAL: Denies fever, chills, or sweats. EYES: Denies visual changes, redness, or discharge. ENT: Denies rhinorrhea, congestion, sore throat, or otalgia. CARDIOVASCULAR: Denies chest pain, palpitations, or edema. MOUTH: Positive for dental pain. RESPIRATORY: Denies cough or dyspnea. GASTROINTESTINAL: Denies abdominal pain, nausea, vomiting, or diarrhea. GENITOURINARY: Denies dysuria or hematuria. SKIN: Denies rash or itching. MUSCULOSKELETAL: Denies back pain, joint pain, or myalgia. NEUROLOGIC: Denies headache, numbness, or weakness. PSYCHIATRIC: Denies anxiety or depression. All other systems reviewed are negative, except as documented in HPI. [facility] Past Medical History Medical History Breast CA Morbid obesity Surgical History Surgical History History of hysterectomy Social History Social History Smoking packs per day: 0.5 Smoking cigarettes per day: 10.0 Years smoked: 3 Smoking pack-years: 1.50 Smoking status: Current every day smoker Tobacco type: cigarettes Additional smoking assessment comments: 3 cigarettes a day x 2 years Alcohol use details: socially Living arrangements: with family Spiritual care concerns: No Comments At the time of my signature, I reviewed and agree with the nursing past medical, surgical, social, and family history. There is no relevant family history pertinent to the patient complaint. Exam Narrative: GENERAL: This is a well-nourished, well-developed adult, in no apparent distress. They are non ill-appearing, nontoxic appearing. HEAD: normocephalic, atraumatic. EYES: Sclera clear/white. Vision is grossly intact. EARS: External ears normal, Hearing grossly intact. NOSE: External nose normal THROAT: Mucous membranes moist, posterior pharynx without erythema or exudate. Uvula is midline. OROPHARYNX: Tooth decay present. Fractured tooth present to the left lower mouth. No gingivitis. Erythema or swelling. Tongue midline. No Pain or swelling under the tongue. NECK: Neck supple, non-tender without lymphadenopathy, masses or thyromegaly. CARDIOVASCULAR: Regular rate and rhythm RESPIRATORY: Respiratory rate normal, respiratory effort nonlabored, no respiratory distress SKIN: warm, Dry, intact with no suspicious lesions or rash, good texture and turgor. NEURO: awake, alert, and oriented to person, place and time. There were no obvious focal neurologic abnormalities. EXTREMITIES: No joint tenderness, effusion, or edema noted. Course Course Emergency Course: Portions of this record may have been created with voice recognition software Level of Care: Express Care Visit Vital Signs Vital signs: Vital Signs Temperature 98.3 F 02/17/25 19:06 Pulse Rate 82 02/17/25 19:06 Respiratory Rate 16 02/17/25 19:06 Blood Pressure 135/89 02/17/25 19:06 Pulse Oximetry 98 02/17/25 19:06 Temperature 98.3 F 02/17/25 19:06 Pulse Rate 82 02/17/25 19:06 Respiratory Rate 16 02/17/25 19:06 Blood Pressure 135/89 02/17/25 19:06 Pulse Oximetry 98 02/17/25 19:06 Reviewed MDM - Dental/Oral MDM Narrative Medical decision making narrative: No evidence of dental abscess. Patient is not taking for pain. Will give her short course of [place] and ibuprofen until she sees her academic vice president on Thursday. Discussed physical exam findings. Advised supportive measures and signs/symptoms to go to the ER. Pt is appropriate for outpt treatment and f/u. Differential Diagnosis Differential diagnosis: Likely gingival abscess, dental caries, toothache, dental abscess and fracture of tooth Critical Care Time Critical Care Time Critical Care Time: No Discharge Plan Discharge Clinical Impression: Pain, dental Patient Disposition: Home Condition: Stable Instructions: Antibiotic Form, Toothache (ED) Additional Instructions: Take the Motrin as directed. Use the [place] as needed for severe pains. Do not drive or operate machinery while taking [place] as it may make you drowsy. [place] your teeth and floss at least 2 times a day. You may use mouthwash after each brushing as well. Follow-up with dentist next week. If you developed worsening swelling, fevers, difficulty swallowing or breathing, difficulty opening her jaw, swelling under the tongue, or any other concerns please go to the ER immediately. Patient Language: German Prescriptions: New ibuprofen 600 mg tablet 600 mg PO Q6H PRN (Reason: pain) Qty: 30 0RF hydrocodone-acetaminophen 5-325 mg tablet 1 tablet PO Q6H PRN (Reason: pain) Qty: 10 0RF No Action amoxicillin 875 mg tablet 875 mg PO Q12H 10 Days Qty: 20 0RF diclofenac sodium 50 mg tablet,delayed release (DR/EC) 50 mg PO TID PRN (Reason: pain) Qty: 20 0RF ergocalciferol (vitamin D2) 1,250 mcg (50,000 unit) capsule 50,000 unit PO WEEKLY Follow-up/Referrals: Gian He MD [Primary Care Provider, Family Practice] Time of Disposition: 19:44
== END 2025-02-17 20:00 | disposition home or self-care (01) ==
PROVIDERS: PCP Emergency Medicine
DX: K08.89 Other specified disorders of teeth and supporting structures (principal); F17.210 Nicotine dependence, cigarettes, uncomplicated; E66.01 Morbid (severe) obesity due to excess calories; Z68.37 Body mass index [BMI] 37.0-37.9, adult; Z85.3 Personal history of malignant neoplasm of breast
CPT/HCPCS: 99213; G0463